=== PATIENT | female | born 1950 | race African-American/Black ===

== ENCOUNTER 2021-10-20 15:26 | Emergency (ER) | payer MEDICARE ==
[~2021-10-20] VITALS: Ht 157.5 cm; Wt 113.4 kg
[2021-10-20 16:28] LABS: BASOPHILS % (AUTO) 0.4 % (0.0-5.0); EOSINOPHILS % (AUTO) 1.1 % (0.0-8.0); HEMATOCRIT 29.5 % (36-48); LYMPHOCYTES % (AUTO) 12.5 % (21.0-51.0); MEAN CORPUSCULAR HEMOGLOBIN 26.3 pg (27.0-33.0); MEAN CORPUSCULAR HGB CONC 31.9 g/dL (32.0-36.0); MEAN CORPUSCULAR VOLUME 82.6 fL (79-99); MONOCYTES % (AUTO) 5.1 % (3.0-13.0); NEUTROPHILS % (AUTO) 80.6 % (40.0-77.0); PLATELET COUNT (AUTO) 309 K/uL (130-400); RED BLOOD CELL COUNT(AUTO) 3.57 MIL/uL (4.00-5.50); RED CELL DISTRIBUTION WIDTH 14.7 % (11.0-15.5); WHITE BLOOD COUNT (AUTO) 9.2 K/uL (4.8-10.8)
[2021-10-20 16:38] LABS: CREATININE 1.8 mg/dL (0.5-1.5); POTASSIUM 4.1 mmol/L (3.5-5.1)
[2021-10-20 16:43] LABS: ALBUMIN 2.8 g/dL (3.5-5.0); BILIRUBIN,TOTAL 0.3 mg/dL (0.2-1.0); TOTAL PROTEIN, SERUM 7.9 g/dL (6.0-8.3)
[2021-10-20] MEDS ORDERED: KETOROLAC 30MG VIAL (30MG/ML) ONE (17:12)
[2021-10-20] MEDS ORDERED: CLINDAMYCIN IVPB 600MG/50ML 50 ML IV STA (17:16)
[2021-10-20] MEDS ORDERED: CLIN-141 PO (17:29)
[2021-10-20] MEDS ORDERED: ACET-66 PO (17:29)
[2021-10-20] MEDS ORDERED: FERR220E7 PO (17:29)
[2021-10-20] MEDS ORDERED: DOCU-116 PO (17:29)
[2021-10-20] MEDS ORDERED: KETOROLAC 30MG VIAL (30MG/ML) IM ONE (17:30)
[2021-10-20] MEDS ORDERED: CLINDAMYCIN IVPB 600MG/50ML 50 ML IV ONE (17:32)
[2021-10-20 18:22] VITALS: BP 164/80
== END 2021-10-20 18:27 | disposition home or self-care (01) ==
LOC: EDH 15:26
DX: N75.0 Cyst of Bartholin's gland (principal); D64.9 Anemia, unspecified; E11.9 Type 2 diabetes mellitus without complications; E78.00 Pure hypercholesterolemia, unspecified; I10 Essential (primary) hypertension; Z88.0 Allergy status to penicillin; Z88.8 Allergy status to other drugs, medicaments and biological substances; Z79.1 Long term (current) use of non-steroidal anti-inflammatories (NSAID)
CPT/HCPCS: 36415; 80053; 85025; 96365; 96372; 99284; J1885; J3490

== ENCOUNTER 2022-12-28 09:50 | Emergency (ER) | payer MEDICARE ==
[~2022-12-28] VITALS: Ht 157.5 cm; Wt 107.0 kg
[~2022-12-28 09:50] MED LIST: ACET-66 PO; CLIN-141 PO; DOCU-116 PO; FERR220E7 PO
[2022-12-28] MEDS ORDERED: KETOROLAC 30MG VIAL (30MG/ML) IM ONE (10:30)
[2022-12-28 11:42] VITALS: BP 156/74
== END 2022-12-28 11:44 | disposition home or self-care (01) ==
LOC: EDH 09:50
DX: S83.8X2A Sprain of other specified parts of left knee, initial encounter (principal); M25.562 Pain in left knee; E11.9 Type 2 diabetes mellitus without complications; E78.00 Pure hypercholesterolemia, unspecified; I10 Essential (primary) hypertension; Z79.1 Long term (current) use of non-steroidal anti-inflammatories (NSAID); Z88.0 Allergy status to penicillin; Z88.8 Allergy status to other drugs, medicaments and biological substances; X58.XXXA Exposure to other specified factors, initial encounter; Y93.89 Activity, other specified; Y92.89 Other specified places as the place of occurrence of the external cause; Y99.8 Other external cause status
CPT/HCPCS: 99283; 29505; 73562; 96372; J1885

== ENCOUNTER 2025-02-26 11:32 | Inpatient (IN) | payer MEDICARE, OTHER ==
[~2025-02-26] VITALS: Ht 154.9 cm; Wt 113.4 kg
[~2025-02-26 11:32] MED LIST changes: +FERR220E10 PO; -FERR220E7 PO
--- NOTE | 2025-02-26 12:01 | EKG ---
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
--- NOTE | 2025-02-26 12:08 | NUR ---
PATIENT MADE AWARE OF URINE SPECIMEN FOR UA
[2025-02-26] MEDS: LACTATED RINGERS 1000ML 1,000 ML IV ONE (12:22)
[2025-02-26 12:29] LABS: BASOPHILS # (AUTO) 0.03 K/uL (0.00-0.20); BASOPHILS % (AUTO) 0.5 % (0.0-5.0); EOSINOPHILS # (AUTO) 0.01 K/uL (0.00-0.70); EOSINOPHILS % (AUTO) 0.2 % (0.0-8.0); HEMATOCRIT 31.4 % (36-48); IMMATURE GRANULOCYTE ABSOLUTE 0.03 K/uL (0-1); LYMPHOCYTES # (AUTO) 0.7 K/uL (1.0-4.8); MEAN CORPUSCULAR HEMOGLOBIN 25.4 pg (27.0-33.0); MEAN CORPUSCULAR HGB CONC 31.8 g/dL (32.0-36.0); MEAN CORPUSCULAR VOLUME 79.7 fL (79-99); MONOCYTES # (AUTO) 0.4 K/uL (0.1-1.0); MONOCYTES % (AUTO) 6.4 % (3.0-13.0); NEUTROPHILS # (AUTO) 5.2 K/uL (1.8-7.7); NEUTROPHILS % (AUTO) 81.4 % (40.0-77.0); PLATELET COUNT (AUTO) 169 K/uL (130-400); RED BLOOD CELL COUNT(AUTO) 3.94 MIL/uL (4.00-5.50); WHITE BLOOD COUNT (AUTO) 6.4 K/uL (4.8-10.8)
[2025-02-26 12:53] LABS: CREATININE 2.1 mg/dL (0.5-1.0); MAGNESIUM 1.5 mg/dL (1.80-2.40); POTASSIUM 3.7 mmol/L (3.5-5.1); THYROID STIMULATING HORMONE 1.98 uIU/mL (0.36-3.74)
--- NOTE | 2025-02-26 12:55 | HMCIMG ---
CHEST 1VW HISTORY: Chest pain COMPARISON: 07/17/2003 FINDINGS: A frontal projection of the chest was obtained. No acute pulmonary infiltrates is seen. The heart is normal in size. Prominent interstitial markings are seen. Aortic calcification are seen. Degenerative changes are seen. IMPRESSION: 1. No acute pulmonary infiltrate is seen.
[2025-02-26 12:56] LABS: B-TYPE NATRIURETIC PEPTIDE 69 pg/mL (0-100)
[2025-02-26 14:22] LABS: APPEARANCE,URINE CLOUDY (CLEAR); BILIRUBIN,URINE NEGATIVE (NEGATIVE); COLOR,URINE YELLOW (YELLOW); GLUCOSE, URINE (UA) 250 mg/dL (NEGATIVE); KETONES,URINE NEGATIVE (NEGATIVE); LEUKOCYTE ESTERASE ,URINE TRACE Leu/uL (NEGATIVE); NITRATE,URINE NEGATIVE (NEGATIVE); OCCULT BLOOD,URINE MODERATE (NEGATIVE); PROTEIN,URINE 100 mg/dL (NEGATIVE); UROBILINOGEN,URINE 0.2 mg/dL (0.2-1.0)
--- NOTE | 2025-02-26 14:23 | ERN ---
General Chief Complaint: Weakness Stated Complaint: GBW Time Seen by MD: 11:35 History of Present Illness Initial Comments 74-year-old female who presents for weakness. Patient comes from home, brought in by EMS with stable vital signs. Patient reports that she was in her normal state of health until today. When she awoke she felt extremely fatigued. She was unable to stand due to the weakness. She denies any fevers vomiting diarrhea dysuria or any systemic illness. She reports p.o. tolerance. She does report that about a week ago she had a cystoscopy in [place]. She has a history of bladder cancer, she was getting a routine cystoscopy and she reports that it was normal. Allergies: Coded Allergies: Penicillins (Unverified Allergy, Unknown, 10/20/21) heparin (Unverified Allergy, Unknown, 10/20/21) Home Meds Active Scripts Docusate Sodium (Colace) 100 Mg Capsule, 100 MG PO BID PRN for constipation for 10 Days, #20 CAP Prov:MARIAMA MASON MD 10/20/21 Ferrous Sulfate (Ferrous Sulfate) 220 Mg/5 Ml Elixir, 220 MG PO DAILY, #15 ML Prov:MARIAMA MASON MD 10/20/21 Acetaminophen (Tylenol) 500 Mg Tab, 500 MG PO Q6HPRN PRN for pain for 5 Days, #30 TAB Prov:MARIAMA MASON MD 10/20/21 Clindamycin HCl (Clindamycin HCl) 300 Mg Capsule, 300 MG PO Q4PRN for 7 Days, #28 CAP Prov:MARIAMA MASON MD 10/20/21 Past Medical History Past Medical History: Other Medical History Other: VERTIGO Past Surgical History: Other Surgical History Other: COLON SURGERY, BLADDER, Family History Family History: HTN Social History Social History: Lives with family ROS Dictation CONSTITUTIONAL: Weakness and fatigue HEAD/FACE: No signs of trauma. EENT: No eye pain, no blurred vision, no tearing, no double vision, no ear pain, no ear discharge, no nose pain, no nasal congestion, no throat pain, no throat swelling, no mouth pain. RESPIRATORY: No cough, no orthopnea, no SOB, no stridor, no wheezing. CARDIOVASCULAR: No chest pain, no edema, no palpitations, no syncope. GASTROINTESTINAL/ABDOMINAL: No abdominal pain, no constipation, no diarrhea, no nausea, no vomiting. GENITOURINARY: No abnormal discharge, no dysuria, no frequent urination, no hematuria. No complaints of pain in the genitals. MUSCULOSKELETAL: No back pain, no gout, no joint pain, no joint swelling, no muscle pain, no muscle stiffness, no neck pain. INTEGUMENTARY: No change in color, no change in hair/nails, no dryness, no lesion, no lumps, no rash. NEUROLOGICAL/PSYCH: No anxiety, not depressed, no emotional problem, no headache, no numbness, no pre-existing deficit, no history of seizures, no tremors, no weakness. HEMATOLOGIC/LYMPHATIC: Not anemic, no history of blood clots, no apparent bleeding, no bruising, glands not swollen. All Systems Negative, Except as Noted. Physical Exam Physical Exam Dictation VITAL SIGNS: Reviewed. GENERAL APPEARANCE: Alert, oriented x3, no acute distress EYES: PERRL, pink conjunctivas, eyelid no trauma, anterior chamber clear. EARS: Pinnas intact and no signs of trauma or erythema. Ear canals clear and no discharge. TMs no erythema. NOSE: No discharge, no bleeding. OROPHARYNX: Mouth normal, teeth no caries, tongue pink. Pharynx clear, no erythema. Tonsils no exudates, no abscesses noted. Mucous membrane moist. NECK: Supple, non-tender, no thyromegaly, no masses, no JVD, no bruits. BREAST: Deferred. CHEST: No tenderness, no crepitus, no paradoxical movement, no retractions. LUNGS: Clear, well-ventilated, symmetric, no rales, no wheezing, no rhonchi, no stridor, good breath sounds bilaterally. HEART: Regular rate, regular rhythm, no murmur, no gallops. VASCULAR: No peripheral edema. ABDOMEN: Soft, positive bowel sounds, nondistended, no guarding, nontender, no rebound, no masses no hepatomegaly, no splenomegaly, no Carrillo's sign, no hernias. RECTAL: Deferred. GENITAL: Deferred. NEUROLOGICAL: Normal speech, gross motor function intact, gross sensory function intact. MUSCULOSKELETAL: Neck nontender, full range of motion, back nontender, full range of motion. EXTREMITIES: Nontender, full range of motion. SKIN: Color pink, dry, no turgor, no rash, no lacerations, no abrasions, no contusions. LYMPHATICS: Deferred. Results Laboratory and Microbiology Lab and Micro Result Laboratory Tests Test 02/26/25 12:09 02/26/25 14:13 White Blood Count 6.4 K/uL (4.8-10.8) Red Blood Count 3.94 MIL/uL (4.00-5.50) L Hemoglobin 10.0 g/dL (12.0-16.0) L Hematocrit 31.4 % (36-48) L Mean Corpuscular Volume 79.7 fL (79-99) Mean Corpuscular Hemoglobin 25.4 pg (27.0-33.0) L Mean Corpuscular Hemoglobin Concent 31.8 g/dL (32.0-36.0) L Red Cell Distribution Width 15.0 % (11.0-15.5) Platelet Count 169 K/uL (130-400) Mean Platelet Volume 10.0 fL (7.5-10.5) Immature Granulocyte % (Auto) 0.5 % (0-1) Neutrophils (%) (Auto) 81.4 % (40.0-77.0) H Lymphocytes (%) (Auto) 11.0 % (21.0-51.0) L Monocytes (%) (Auto) 6.4 % (3.0-13.0) Eosinophils (%) (Auto) 0.2 % (0.0-8.0) Basophils (%) (Auto) 0.5 % (0.0-5.0) Neutrophils # (Auto) 5.2 K/uL (1.8-7.7) Lymphocytes # (Auto) 0.7 K/uL (1.0-4.8) L Monocytes # (Auto) 0.4 K/uL (0.1-1.0) Eosinophils # (Auto) 0.01 K/uL (0.00-0.70) Basophils # (Auto) 0.03 K/uL (0.00-0.20) Absolute Immature Granulocyte (auto 0.03 K/uL (0-1) Nucleated Red Blood Cells 0.0 % (0.0-0.19) Sodium Level 132 mmol/L (136-145) L Potassium Level 3.7 mmol/L (3.5-5.1) Chloride Level 100 mmol/L (101-111) L Carbon Dioxide Level 23 mmol/L (21-32) Blood Urea Nitrogen 20 mg/dL (7-18) H Creatinine 2.1 mg/dL (0.5-1.0) H Glomerular Filtration Rate Calc 25 mL/min (>90) Random Glucose 258 mg/dL (70-105) H Lactic Acid Level 1.5 mmol/L (0.8-2.5) Total Calcium 8.1 mg/dL (8.5-10.1) L Magnesium Level 1.50 mg/dL (1.80-2.40) L Total Creatine Kinase 121 U/L (21-232) # Troponin I High Sensitivity 25.4 ng/L (4-50) B-Type Natriuretic Peptide 69 pg/mL (0-100) Procalcitonin 3.19 ng/mL (0.05-0.5) H Thyroid Stimulating Hormone (TSH) 1.98 uIU/mL (0.36-3.74) Urine Color YELLOW (YELLOW) Urine Appearance CLOUDY (CLEAR) H Urine pH 6.0 (5.0-8.0) Urine Specific New Site 1.025 (1.001-1.031) Urine Protein 100 mg/dL (NEGATIVE) H Urine Glucose (UA) 250 mg/dL (NEGATIVE) H Urine Ketones NEGATIVE mg/dL (NEGATIVE) Urine Occult Blood MODERATE (NEGATIVE) H Urine Nitrate NEGATIVE (NEGATIVE) Urine Bilirubin NEGATIVE mg/dL (NEGATIVE) Urine Urobilinogen 0.2 mg/dL (0.2-1.0) Urine Leukocyte Esterase TRACE Micki/uL (NEGATIVE) H Urine RBC 2-5 /HPF (0-1) H Urine WBC 51-100 /HPF (0-1) H Urine WBC Clumps (Auto) RARE /HPF (0-1) Urine Squamous Epithelial Cells MOD /HPF (0-2) Urine Non-Squamous Epithelial Cells 1 /HPF (0-2) Urine Bacteria MOD /HPF (None Seen) Urine Hyaline Casts 6-10 /LPF (0-1 /LPF) H Urine Yeast RARE /HPF (None Seen) MDM CC: Generalized weak Historian: Patient Comorbidities: Liver cancer history of bladder cancer diabetes hypertension CKD limitations by social determinants of health: None EKG: Sinus rhythm rate 98 normal axis good R-wave progression intervals are stable no STEMI. Independently interpreted by me. Vital signs: Mild hypertension otherwise stable remained stable in the ER. Labs ( independently ordered and interpreted by me ): No leukocytosis, 81% neutrophils. Normocytic anemia hemoglobin of 10. Metabolic panel shows mild dehydration, creatinine of 2.1 baseline for patient. Hyperglycemia 258. Lactic acid stable. Magnesium 1.5. Troponin normal. BNP normal TSH normal. Procalcitonin is elevated at 3.1 Urinalysis positive for infection likely the cause of the patient's symptoms. Patient received IV fluids and IV Rocephin in the ER Plan: We will admit for UTI dehydration anemia and weakness Patient agrees Consultation: Hospitalist for admission. ED Course Orders Procedure Category Date Status Time Cardiac Panel LAB 02/26/25 Complete 11:35 Cbc With Differential LAB 02/26/25 Complete 11:35 Basic Metabolic Panel LAB 02/26/25 Complete 11:35 B-Type Natriuretic LAB 02/26/25 Complete Peptide 11:35 Magnesium LAB 02/26/25 Complete 11:35 Lactated Ringers PHA 02/26/25 Complete 1000ml (Lactated 12:00 12 Lead Ekg Tracing- EKG 02/26/25 Complete Technical 11:35 Urinalysis LAB 02/26/25 Complete W/Microscopic 11:35 Lactic Acid LAB 02/26/25 Complete 11:35 Blood Cult MANOJ 02/26/25 In Process 11:35 Procalcitonin LAB 02/26/25 Complete 11:35 Thyroid Stimulating LAB 02/26/25 Complete Hormone 11:35 Chest 1vw RAD 02/26/25 Resulted 11:42 Ceftriaxone 1g Vial PHA 02/26/25 Complete (Rocephine 1g Inj) 14:30 Ceftriaxone 1g Vial PHA 02/26/25 In Process (Rocephine 1g Inj) 15:00 Culture Urine MANOJ 02/26/25 Logged 14:40 Current Medications Medications (Trade) Dose Ordered Sig/Sonja Route PRN Reason Start Time Stop Time Status Last Admin Dose Admin Ceftriaxone Sodium (ROCEphine 1G INJ) 1 gm ONCE ONCE IVPB 02/26/25 15:00 02/26/25 15:01 Ceftriaxone Sodium (ROCEphine 1G INJ) 1 gm Q24H IVPB 02/26/25 14:30 02/26/25 14:38 DC Lactated Ringer's 1,000 ml @ 0 mls/hr ONCE ONCE IV 02/26/25 12:00 02/26/25 12:01 DC 02/26/25 12:22 Vital Signs Date Time Temp Pulse Resp B/P (MAP) Pulse Ox O2 Delivery O2 Flow Rate FiO2 02/26/25 12:15 98.8 95 20 158/66 97 Room Air* 0 21 02/26/25 11:35 99.3 99 20 154/72 98 Room Air 0 DX & DISP Disposition: Inpatient Departure Impression: Primary Impression: UTI (urinary tract infection) Additional Impressions: CKD (chronic kidney disease), Dehydration, Hyperglycemia, Anemia Condition: Stable Referrals: SELF,REFERRAL (PCP) ALISON KIDD DO Feb 26, 2025 14:23
[2025-02-26] MEDS ORDERED: cefTRIAXone 1G VIAL IVPB SCH (14:30)
[2025-02-26 14:39] LABS: BACTERIA,URINE MOD /HPF (None Seen); MUCUS,URINE FEW LPF (None Seen); NON-SQUAMOUS EPITHELIAL CELL 1 /HPF (0-2); SQUAMOUS EPITHELIAL CELL,UR MOD /HPF (0-2); WBC CLUMP RARE /HPF (0-1); WBC,URINE 51-100 /HPF (0-1); YEAST,URINE BUDDING RARE /HPF (None Seen)
[2025-02-26] MEDS: cefTRIAXone 1G VIAL IVPB ONE (15:12)
[2025-02-26 15:50] LABS: HEMOGLOBIN A1C 9.4 % (4.0-6.0)
--- NOTE | 2025-02-26 16:18 | HMCIMG ---
CT ABDOMEN/PELVIS W/O CONTRAST HISTORY: History of colon and bladder cancer COMPARISON: None TECHNIQUE: Multiple sequential axial images of the abdomen and pelvis were obtained from the dome of the diaphragm through symphysis pubis. Patient was not given contrast through intravenous route. Oral contrast was not given. Reconstruction images were not obtained. This is limiting evaluation. FINDINGS: No pleural effusion is seen bilaterally. There is no evidence of parenchymal disease or pulmonary nodule of the visualized lower lungs. Degenerative changes of the thoracolumbar spine are present. The heart is not enlarged. Postcholecystectomy changes are seen. A small hiatal hernia is seen. The study is limited due to lack of oral and IV contrast. The liver, spleen, adrenal glands and pancreas are unremarkable. 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 There may be minimal left hydronephrosis. No evidence of renal stone is seen. Fecal material is seen in the colon. There are normal size retroperitoneal and mesenteric lymph nodes. No ascites is seen. Atherosclerotic changes are present. Pelvic sidewalls are symmetric bilaterally. Deformity is seen of the right pubic ramus may be related to old trauma. Bladder is well distended without wall thickening. IMPRESSION: 1. The study is limited due to lack of oral and IV contrast. The study is limited due to the lack of two-dimensional reconstruction images. Small hiatal hernia is seen. No ascites is seen. Right kidney has been advanced and the minimal left hydronephrosis. CT was performed with one or more following dose reduction techniques: automated exposure control, adjustment of the mA and kv according to patient's size, or use of a iterative reconstruction technique.
[2025-02-26] MEDS: THIAMINE HCL 100 MG/ML 2ML VIAL IVP SCH (16:23)
[2025-02-26] MEDS: 0.9%NACL 1000ML 1,000 ML IV SCH (16:23)
[2025-02-26] MEDS: acetaMINOPHEN 325 MG TAB PO PRN (16:23)
[2025-02-26] MEDS: amLODIPine 5 MG TAB PO SCH (16:23)
[2025-02-26] MEDS: ondanSETRON 4MG INJ IVP PRN (16:25)
[2025-02-26] MEDS ORDERED: RENAL DOSE IV SCH (16:30)
[2025-02-26] MEDS ORDERED: levoFLOXacin 500 MG/D5W 100 ML 100 ML IV SCH (16:30)
--- NOTE | 2025-02-26 16:30 | NUR ---
INFECTIOUS DISEASE CONSULT COMPLETED BY DR HELM
[2025-02-26 16:40] LABS: ALBUMIN 2.4 g/dL (3.5-5.0); BILIRUBIN,DIRECT 0.1 mg/dL (0.0-0.3); BILIRUBIN,TOTAL 0.4 mg/dL (0.2-1.0); TOTAL PROTEIN, SERUM 7.3 g/dL (6.0-8.3)
[2025-02-26 16:51] LABS: SARS-CoV-2, RNA, NAAT NEGATIVE SARS CoV-2 (NEGATIVE)
[2025-02-26 16:59] LABS: INFLUENZA TYPE A Negative For Type A (NEGATIVE); INFLUENZA TYPE B Negative For Type B (NEGATIVE)
[2025-02-26] MEDS: MEROPENEM 500MG 500 MG VIAL IVPB SCH (17:00)
[2025-02-26] MEDS: MAGNESIUM 2GM PREMIX 50ML 50 ML IV SCH (17:01)
[2025-02-26] MEDS: INSULIN humuLIN R 100 UNIT/ML 3ML SQ SCH (17:08)
--- NOTE | 2025-02-26 19:24 | NUR ---
PT CARE ASSUMED AT THIS TIME
--- NOTE | 2025-02-26 21:49 | HP ---
[facility] HISTORY AND PHYSICAL Date of Service: Feb 26, 2025 Time of Service: 21:40 HISTORY OF PRESENT ILLNESS: Date of service: 02/26/2025, patient was seen in ER room 17 74-year-old female with underlying history of hypertension, hyperlipidemia, type 2 diabetes mellitus, obesity, history of bladder cancer followed at [facility], prior history of colon cancer who presented to the ER for further evaluation of generalized weakness, poor oral intake, malaise and asthenia. Symptoms have been ongoing for the past 3-4 days where patient reports having poor oral intake and myalgias. Patient reports that on 02/18/25, she had a routine surveillance cystoscopy done in [facility], and since then she has been feeling unwell. Patient denies any headache or focal weakness of upper or lower extremities. She has a history of bladder cancer several years ago for which she underwent chemotherapy as well as surgery. She also has a history of colon cancer where she underwent colon resection as well as she was told that small sport in her lungs, kidneys, liver which needed to be resected. Patient has a history of right renal nephrectomy. On presentation to the hospital, patient was noted to be afebrile with T-max of 99.3, tachycardic with heart rate in the 100s, blood pressure of 154/72. Labs on presentation showed WBC count of 6400, hemoglobin of 10, platelet count of 840262. BMP remarkable for sodium 132, potassium 3.7, BUN of 20, creatinine 2.1, magnesium 1.5, procalcitonin was elevated at 3.19 with AST of 79, ALT of 63, alkaline phosphatase of 187. Urinalysis showed cloudy urine with pyuria, bacteriuria. Patient will be admitted for further management of urinary tract infection and dehydration. Patient does have underlying history of penicillin allergy with renal failure. Patient will be started on broad-spectrum antibiotics with IV Merrem and consultation with Infectious Disease will be requested. We will see how patient progresses closely. REVIEW OF SYSTEMS CONSTITUTIONAL: Fevers, chills, asthenia malaise NEUROLOGICAL: Denies headache, amaurosis fugax, motor weakness, sensory deficit, vertigo/spinning sensation, gait abnormalities, or tremors. ENT: No hearing loss, otalgia, otorrhea, rhinitis, rhinorrhea, hoarseness, or sore throat. CARDIOVASCULAR: Denies any exertional angina, dyspnea on exertion, orthopnea, paroxysmal nocturnal dyspnea, palpitations, life-threatening arrhythmias, claudication. PULMONARY: Denies any shortness of breath, cough, phlegm/sputum, hemoptysis, pleuritic chest pain. SLEEP: Denies morning headaches, daytime somnolence or napping. Denies difficulty falling asleep, staying asleep, waking from sleep. Denies knowledge of snoring. GASTROINTESTINAL: Poor oral intake with nausea GENITOURINARY: Denies frequency, urgency, nocturia, hematuria or incontinence (Storage/Irritative symptoms.) Low urinary stream, straining to void, urinary intermittency or hesitancy, splitting of the voiding stream, terminal dribbling. ENDOCRINOLOGIC: Denies polyuria, polydipsia, polyphagia or heat/cold intolerances. HEMATOLOGIC: Denies thrombophilia/previous clots, or coagulopathy/bleeding disorders. ONCOLOGIC: Denies personal history of malignancy. DERMATOLOGIC: Denies rashes or pruritus. PSYCHIATRIC: Denies any suicidal or homicidal ideation. Denies hallucinations. PAST MEDICAL HISTORY: Hypertension, hyperlipidemia, type 2 diabetes mellitus, history of bladder cancer, prior history of colon cancer about 20 years ago PAST SURGICAL HISTORY: Right renal nephrectomy, history of tumor removal involving lungs, liver and patient also reports having colon resection for colon cancer 20 years ago in [facility] PAST SOCIAL HISTORY: Denies active smoking or alcohol consumption, lives with son at home, uses a walker to ambulate FAMILY HISTORY: Denies pertinent family history Allergies: Penicillin which causes significant rash, heparin causes thrombocytopenia Coded Allergies: Penicillins (Unverified Allergy, Unknown, 10/20/21) heparin (Unverified Allergy, Unknown, 10/20/21) PHYSICAL EXAM GENERAL APPEARANCE: The patient is awake, alert, and oriented, in no acute cardiopulmonary distress. Appears frail and debilitated NEUROLOGICAL: Cranial nerves II-XII grossly intact. Motor is 5/5 in bilateral upper and lower extremities proximal to distal. No sensory deficits. HEENT: Face is symmetric. Pupils are equal and reactive. Extraocular movements are intact. NECK: Supple. No JVD. No thyromegaly. No submental, submandibular, pre-/postau ricular, occipital or supraclavicular lymphadenopathy. CHEST: Normal chest expansion. No Telemetry. LUNGS: Absence of any rales, rhonchi or any wheezing. CARDIOVASCULAR: Regular. S1 and S2 normal. No appreciable rubs, murmurs or gallops. ABDOMEN: Soft, nontender, and nondistended. There is no rebound, voluntary guarding, or rigidity. : Deferred. No [place]. EXTREMITIES: Non-edematous and not cyanotic. No clubbing. Good capillary refill. SKIN: No skin breakdown. Vital Sign (Last 24 Hours) 02/26/25 19:35 Temp 98.2 Pulse 99 Resp 20 B/P (MAP) 149/71 Pulse Ox 99 O2 Delivery Room Air* O2 Flow Rate 0 FiO2 21 LABS: Laboratory: Test 02/26/25 21:15 02/26/25 16:23 02/26/25 14:13 02/26/25 12:09 Range/Units Whole Blood Glucose 166 H 70-110 MG/DL Influenza Type A Antigen Negative For Type A NEGATIVE Influenza Type B Antigen Negative For Type B NEGATIVE SARS-CoV-2, RNA, NAAT NEGATIVE SARS CoV-2 NEGATIVE Urine Color YELLOW YELLOW Urine Appearance CLOUDY H CLEAR Urine pH 6.0 5.0-8.0 Urine Specific [place] 1.025 1.001-1.031 Urine Protein 100 H NEGATIVE mg/dL Urine Glucose (UA) 250 H NEGATIVE mg/dL Urine Ketones NEGATIVE NEGATIVE mg/dL Urine Occult Blood MODERATE H NEGATIVE Urine Nitrate NEGATIVE NEGATIVE Urine Bilirubin NEGATIVE NEGATIVE mg/dL Urine Urobilinogen 0.2 0.2-1.0 mg/dL Urine Leukocyte Esterase TRACE H NEGATIVE Micki/uL Urine RBC 2-5 H 0-1 /HPF Urine WBC 51-100 H 0-1 /HPF Urine WBC Clumps (Auto) RARE 0-1 /HPF Urine Squamous Epithelial Cells MOD 0-2 /HPF Urine Non-Squamous Epithelial Cells 1 0-2 /HPF Urine Bacteria MOD None Seen /HPF Urine Hyaline Casts 6-10 H 0-1 /LPF /LPF Urine Yeast RARE None Seen /HPF White Blood Count 6.4 4.8-10.8 K/uL Red Blood Count 3.94 L 4.00-5.50 MIL/uL Hemoglobin 10.0 L 12.0-16.0 g/dL Hematocrit 31.4 L 36-48 % Mean Corpuscular Volume 79.7 79-99 fL Mean Corpuscular Hemoglobin 25.4 L 27.0-33.0 pg Mean Corpuscular Hemoglobin Concent 31.8 L 32.0-36.0 g/dL Red Cell Distribution Width 15.0 11.0-15.5 % Platelet Count 169 130-400 K/uL Mean Platelet Volume 10.0 7.5-10.5 fL Immature Granulocyte % (Auto) 0.5 0-1 % Neutrophils (%) (Auto) 81.4 H 40.0-77.0 % Lymphocytes (%) (Auto) 11.0 L 21.0-51.0 % Monocytes (%) (Auto) 6.4 3.0-13.0 % Eosinophils (%) (Auto) 0.2 0.0-8.0 % Basophils (%) (Auto) 0.5 0.0-5.0 % Neutrophils # (Auto) 5.2 1.8-7.7 K/uL Lymphocytes # (Auto) 0.7 L 1.0-4.8 K/uL Monocytes # (Auto) 0.4 0.1-1.0 K/uL Eosinophils # (Auto) 0.01 0.00-0.70 K/uL Basophils # (Auto) 0.03 0.00-0.20 K/uL Absolute Immature Granulocyte (auto 0.03 0-1 K/uL Nucleated Red Blood Cells 0.0 0.0-0.19 % Sodium Level 132 L 136-145 mmol/L Potassium Level 3.7 3.5-5.1 mmol/L Chloride Level 100 L 101-111 mmol/L Carbon Dioxide Level 23 21-32 mmol/L Blood Urea Nitrogen 20 H 7-18 mg/dL Creatinine 2.1 H 0.5-1.0 mg/dL Glomerular Filtration Rate Calc 25 >90 mL/min Random Glucose 258 H 70-105 mg/dL Hemoglobin A1c 9.4 H 4.0-6.0 % Estimated Average Glucose (eAG) 223 H 70-126 mg/dL Lactic Acid Level 1.5 0.8-2.5 mmol/L Total Calcium 8.1 L 8.5-10.1 mg/dL Magnesium Level 1.50 L 1.80-2.40 mg/dL Total Bilirubin 0.4 0.2-1.0 mg/dL Direct Bilirubin 0.1 0.0-0.3 mg/dL Aspartate Amino Transf (AST/SGOT) 79 H 10-37 U/L Alanine Aminotransferase (ALT/SGPT) 63 12-78 U/L Alkaline Phosphatase 187 H 50-136 U/L Total Creatine Kinase 121 # 21-232 U/L Troponin I High Sensitivity 25.4 4-50 ng/L C-Reactive Protein, Quantitative 57.10 H 0.5-3.0 mg/L B-Type Natriuretic Peptide 69 0-100 pg/mL Total Protein 7.3 6.0-8.3 g/dL Albumin 2.4 L 3.5-5.0 g/dL Procalcitonin 3.19 H 0.05-0.5 ng/mL Thyroid Stimulating Hormone (TSH) 1.98 0.36-3.74 uIU/mL Current Medications Medications (Trade) Dose Ordered Sig/Sonja Route PRN Reason Start Time Stop Time Status Last Admin Dose Admin Acetaminophen (TYLenol 325MG TAB) 650 mg Q6H PRN PO MILD PAIN (1-3) 02/26/25 16:30 03/28/25 16:29 02/26/25 16:23 650 MG Amlodipine Besylate (NorvASC 5MG TAB) 5 mg Q12H PO 02/26/25 15:30 03/28/25 15:29 02/26/25 16:23 5 MG Ceftriaxone Sodium (ROCEphine 1G INJ) 1 gm Q24H IVPB 02/26/25 14:30 02/26/25 14:38 DC Insulin Human Regular (humuLIN R 100 UNIT/ML 3ML) INSULIN SLIDING SCAL... ACHS SQ 02/26/25 16:30 03/28/25 16:29 02/26/25 17:08 4 UNIT Labetalol HCl (TRANdate 20MG SYG) 10 mg Q6H PRN IV SBP> 170 02/26/25 15:30 03/28/25 15:29 Levofloxacin/ Dextrose 100 ml @ 100 mls/hr Q48H IV 02/26/25 16:30 02/26/25 16:08 DC Magnesium Sulfate 50 ml @ 0 mls/hr PROTOCOL IV 02/26/25 15:30 03/28/25 15:29 02/26/25 17:01 25 MLS/HR Meropenem (Merrem 500mg) 500 mg Q12H IVPB 02/26/25 16:30 03/08/25 16:29 02/26/25 17:00 500 MG Ondansetron HCl (zoFRAN 4MG INJ) 4 mg Q6H PRN IVP NAUSEA/VOMITING 02/26/25 16:30 03/28/25 16:29 02/26/25 16:25 4 MG Sodium Chloride 1,000 ml @ 100 mls/hr Q10H IV 02/26/25 15:30 03/28/25 15:29 02/26/25 16:23 100 MLS/HR Thiamine HCl (Vitamin B-1) 100 mg Q24H IVP 02/26/25 15:30 03/28/25 15:29 02/26/25 16:23 100 MG DIAGNOSTICS / RADIOLOGY: SERVICE 1519 REASON: hx of colon and bladder cancer, uti, recent cystoscopy, hx of neprhectomy ORDERING PHYSICIAN: COREY TAMAYO MD PROCEDURE: ABD PEL WO - CT ABDOMEN/PELVIS W/O CONTRAST CT ABDOMEN/PELVIS W/O CONTRAST HISTORY: History of colon and bladder cancer COMPARISON: None TECHNIQUE: Multiple sequential axial images of the abdomen and pelvis were obtained from the dome of the diaphragm through symphysis pubis. Patient was not given contrast through intravenous route. Oral contrast was not given. Reconstruction images were not obtained. This is limiting evaluation. FINDINGS: No pleural effusion is seen bilaterally. There is no evidence of parenchymal disease or pulmonary nodule of the visualized lower lungs. Degenerative changes of the thoracolumbar spine are present. The heart is not enlarged. Postcholecystectomy changes are seen. A small hiatal hernia is seen. The study is limited due to lack of oral and IV contrast. The liver, spleen, adrenal glands and pancreas are unremarkable. 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 There may be minimal left hydronephrosis. No evidence of renal stone is seen. Fecal material is seen in the colon. There are normal size retroperitoneal and mesenteric lymph nodes. No ascites is seen. Atherosclerotic changes are present. Pelvic sidewalls are symmetric bilaterally. Deformity is seen of the right pubic ramus may be related to old trauma. Bladder is well distended without wall thickening. IMPRESSION: 1. The study is limited due to lack of oral and IV contrast. The study is limited due to the lack of two-dimensional reconstruction images. Small hiatal hernia is seen. No ascites is seen. Right kidney has been advanced and the minimal left hydronephrosis. CT was performed with one or more following dose reduction techniques: automated exposure control, adjustment of the mA and kv according to patient's size, or use of a iterative reconstruction technique. ASSESSMENT: Complicated urinary tract infection, POA CELIA on CKD, POA History of right renal nephrectomy, POA Dehydration, POA Normocytic anemia, POA History of bladder cancer, POA Prior history of colon cancer about 20 years ago status post colon resection, POA Hypomagnesemia, POA Hypovolemic hyponatremia, POA Underlying history of hypertension, POA Hyperlipidemia, POA Type 2 diabetes mellitus, POA Obesity, POA History of allergy to penicillin and heparin, POA PLAN: Patient will be admitted to medical-surgical floor under telemetry monitoring We will start broad-spectrum antibiotics with IV meropenem, renally dosed, deescalate antibiotics in the next 24-48 hours based on culture sensitivity We will start IV hydration with NS at 100 cc an hour, monitor renal function closely especially in the setting of right renal nephrectomy We will follow up results of CT abdomen pelvis without contrast We will request consultation with Infectious Disease and Nephrology Patient will be resumed in her home dose of amlodipine 5 mg b.i.d. for management of hypertension We will follow up blood cultures and urine culture We will request consultation with Physical therapy for patient mobilization Anticipate hospitalization for at least 48-72 hours, we will follow up patient closely All labs will be repeated in the morning Medications were renally dose, avoid any NSAIDs, avoid any nephrotoxic medications Prognosis: Guarded Date of service: 02/27/2024 Plan of care was discussed with patient at bedside, Corey Tamayo MD Advanced Care Planning: Which of the following were discussed: Hospice care: Yes __ No _X_ Therapeutic options: Yes _X_ No __ Advance directives: Yes _X_ No __ Other discussions: Discussed with who?: Patient Voluntary nature of this service was explained to the patient? Yes _x_ No __ Amount of time spent: 20 minutes COREY TAMAYO MD Feb 26, 2025 21:49
--- NOTE | 2025-02-26 23:40 | NUR ---
REPORT GIVEN TO ENMANUEL MICHELE AT THIS TIME
[2025-02-26 23:55] VITALS: BP 152/78; PULSE 107; RESP 20; TEMP 98.2; O2SAT 97
[2025-02-27] VITALS (7 sets, daily range): BP systolic 108–155; BP diastolic 69–80; PULSE 101–114; RESP 16–22; TEMP 98.3–100.8; O2SAT 96–99
[2025-02-27 05:54] LABS: BASOPHILS # (AUTO) 0.04 K/uL (0.00-0.20); BASOPHILS % (AUTO) 0.6 % (0.0-5.0); EOSINOPHILS # (AUTO) 0.02 K/uL (0.00-0.70); EOSINOPHILS % (AUTO) 0.3 % (0.0-8.0); IMMATURE GRANULOCYTE ABSOLUTE 0.04 K/uL (0-1); LYMPHOCYTES # (AUTO) 0.6 K/uL (1.0-4.8); LYMPHOCYTES % (AUTO) 9.9 % (21.0-51.0); MEAN CORPUSCULAR HEMOGLOBIN 25.3 pg (27.0-33.0); MEAN CORPUSCULAR VOLUME 78.9 fL (79-99); MONOCYTES # (AUTO) 0.5 K/uL (0.1-1.0); MONOCYTES % (AUTO) 7.7 % (3.0-13.0); NEUTROPHILS # (AUTO) 5.1 K/uL (1.8-7.7); NEUTROPHILS % (AUTO) 80.9 % (40.0-77.0); PLATELET COUNT (AUTO) 144 K/uL (130-400); RED CELL DISTRIBUTION WIDTH 15.1 % (11.0-15.5); WHITE BLOOD COUNT (AUTO) 6.3 K/uL (4.8-10.8)
[2025-02-27 06:08] LABS: ALBUMIN 2.1 g/dL (3.5-5.0); BILIRUBIN,TOTAL 0.4 mg/dL (0.2-1.0); CREATININE 1.8 mg/dL (0.5-1.0); MAGNESIUM 1.8 mg/dL (1.80-2.40); POTASSIUM 3.8 mmol/L (3.5-5.1); TOTAL PROTEIN, SERUM 6.8 g/dL (6.0-8.3)
[2025-02-27] MEDS ORDERED: ATORVASTATIN PO (06:56)
[2025-02-27] MEDS ORDERED: VENL-63 PO (06:56)
[2025-02-27] MEDS ORDERED: SENN8.6T20 PO (06:56)
[2025-02-27] MEDS ORDERED: AMLO-258 PO (06:56)
[2025-02-27] MEDS ORDERED: GABA-1405 PO (06:56)
[2025-02-27] MEDS ORDERED: GLIP5TAB15 PO (06:56)
--- NOTE | 2025-02-27 10:02 | PN ---
[facility] PROGRESS NOTE Date of Service: Feb 27, 2025 Time of Service: 10:02 SUBJECTIVE: [ ] Date of service: 02/26/2025, patient was seen in ER room 17 74-year-old female with underlying history of hypertension, hyperlipidemia, type 2 diabetes mellitus, obesity, history of bladder cancer followed at [facility], prior history of colon cancer who presented to the ER for further evaluation of generalized weakness, poor oral intake, malaise and asthenia. Symptoms have been ongoing for the past 3-4 days where patient reports having poor oral intake and myalgias. Patient reports that on 02/18/25, she had a routine surveillance cystoscopy done in [facility], and since then she has been feeling unwell. Patient denies any headache or focal weakness of upper or lower extremities. She has a history of bladder cancer several years ago for which she underwent chemotherapy as well as surgery. 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 Patient has a history of right renal nephrectomy. On presentation to the hospital, patient was noted to be afebrile with T-max of 99.3, tachycardic with heart rate in the 100s, blood pressure of 154/72. Labs on presentation showed WBC count of 6400, hemoglobin of 10, platelet count of 792248. BMP remarkable for sodium 132, potassium 3.7, BUN of 20, creatinine 2.1, magnesium 1.5, procalcitonin was elevated at 3.19 with AST of 79, ALT of 63, alkaline phosphatase of 187. Urinalysis showed cloudy urine with pyuria, bacteriuria. Patient will be admitted for further management of urinary tract infection and dehydration. Patient does have underlying history of penicillin allergy with renal failure. Patient will be started on broad-spectrum antibiotics with IV Merrem venom and consultation with Infectious Disease will be requested. We will see how patient progresses closely. February 27, 2025 74-year-old female remains admitted for generalized weakness and poor oral intake, initially presenting on February 26, 2025. Patient reports slight improvement in energy today but still feels overall weak and unable to ambulate independently. She has been able to take oral fluids and a light meal, which she tolerated well. She continues to complain of significant lower back pain (rated 7/10), described as dull, aching, non-radiating, worsened with movement. Denies saddle anesthesia, bowel or bladder incontinence. No current fever, chills, chest pain, palpitations, nausea, or vomiting. Denies any new neurological symptoms. Patient is aware that urine analysis and preliminary culture was positive and is currently receiving IV meropenem. She is agreeable to physical therapy assessment. No new urinary complaints. Mild improvement in mental clarity and fatigue. REVIEW OF SYSTEMS CONSTITUTIONAL: Fevers, chills, asthenia malaise NEUROLOGICAL: Denies headache, amaurosis fugax, motor weakness, sensory deficit, vertigo/spinning sensation, gait abnormalities, or tremors. ENT: No hearing loss, otalgia, otorrhea, rhinitis, rhinorrhea, hoarseness, or sore throat. CARDIOVASCULAR: Denies any exertional angina, dyspnea on exertion, orthopnea, paroxysmal nocturnal dyspnea, palpitations, life-threatening arrhythmias, claudication. PULMONARY: Denies any shortness of breath, cough, phlegm/sputum, hemoptysis, pleuritic chest pain. SLEEP: Denies morning headaches, daytime somnolence or napping. Denies difficulty falling asleep, staying asleep, waking from sleep. Denies knowledge of snoring. GASTROINTESTINAL: Poor oral intake with nausea GENITOURINARY: Denies frequency, urgency, nocturia, hematuria or incontinence (Storage/Irritative symptoms.) Low urinary stream, straining to void, urinary intermittency or hesitancy, splitting of the voiding stream, terminal dribbling. ENDOCRINOLOGIC: Denies polyuria, polydipsia, polyphagia or heat/cold intolerances. HEMATOLOGIC: Denies thrombophilia/previous clots, or coagulopathy/bleeding disorders. ONCOLOGIC: Denies personal history of malignancy. DERMATOLOGIC: Denies rashes or pruritus. PSYCHIATRIC: Denies any suicidal or homicidal ideation. Denies hallucinations. PHYSICAL EXAM GENERAL APPEARANCE: The patient is awake, alert, and oriented, in no acute cardiopulmonary distress. Appears frail and debilitated NEUROLOGICAL: Cranial nerves II-XII grossly intact. Motor is 5/5 in bilateral upper and lower extremities proximal to distal. No sensory deficits. HEENT: Face is symmetric. Pupils are equal and reactive. Extraocular movements are intact. NECK: Supple. No JVD. No thyromegaly. No submental, submandibular, pre- /postauricular, occipital or supraclavicular lymphadenopathy. CHEST: Normal chest expansion. No Telemetry. LUNGS: Absence of any rales, rhonchi or any wheezing. CARDIOVASCULAR: Regular. S1 and S2 normal. No appreciable rubs, murmurs or gallops. ABDOMEN: Soft, nontender, and nondistended. There is no rebound, voluntary guarding, or rigidity. : Deferred. No Kent. EXTREMITIES: Non-edematous and not cyanotic. No clubbing. Good capillary refill. SKIN: No skin breakdown. Vital Signs (last 8hr) Date Time Temp Pulse Resp B/P (MAP) Pulse Ox O2 Delivery O2 Flow Rate FiO2 02/27/25 08:34 99 Room Air* 0 21 02/27/25 07:48 100.8 109 22 126/69 99 Room Air 21 02/27/25 04:00 98.6 101 20 153/71 97 Room Air LABS: Laboratory: Test 02/27/25 05:49 02/27/25 05:21 02/26/25 16:23 02/26/25 14:13 Range/Units Whole Blood Glucose 153 H 70-110 MG/DL White Blood Count 6.3 4.8-10.8 K/uL Red Blood Count 3.80 L 4.00-5.50 MIL/uL Hemoglobin 9.6 L 12.0-16.0 g/dL Hematocrit 30.0 L 36-48 % Mean Corpuscular Volume 78.9 L 79-99 fL Mean Corpuscular Hemoglobin 25.3 L 27.0-33.0 pg Mean Corpuscular Hemoglobin Concent 32.0 32.0-36.0 g/dL Red Cell Distribution Width 15.1 11.0-15.5 % Platelet Count 144 130-400 K/uL Mean Platelet Volume 11.2 H 7.5-10.5 fL Immature Granulocyte % (Auto) 0.6 0-1 % Neutrophils (%) (Auto) 80.9 H 40.0-77.0 % Lymphocytes (%) (Auto) 9.9 L 21.0-51.0 % Monocytes (%) (Auto) 7.7 3.0-13.0 % Eosinophils (%) (Auto) 0.3 0.0-8.0 % Basophils (%) (Auto) 0.6 0.0-5.0 % Neutrophils # (Auto) 5.1 1.8-7.7 K/uL Lymphocytes # (Auto) 0.6 L 1.0-4.8 K/uL Monocytes # (Auto) 0.5 0.1-1.0 K/uL Eosinophils # (Auto) 0.02 0.00-0.70 K/uL Basophils # (Auto) 0.04 0.00-0.20 K/uL Absolute Immature Granulocyte (auto 0.04 0-1 K/uL Nucleated Red Blood Cells 0.0 0.0-0.19 % White Cell Morphology Comment See comments Sodium Level 134 L 136-145 mmol/L Potassium Level 3.8 3.5-5.1 mmol/L Chloride Level 103 101-111 mmol/L Carbon Dioxide Level 24 21-32 mmol/L Blood Urea Nitrogen 17 7-18 mg/dL Creatinine 1.8 H 0.5-1.0 mg/dL Glomerular Filtration Rate Calc 30 >90 mL/min Random Glucose 150 H 70-105 mg/dL Total Calcium 7.9 L 8.5-10.1 mg/dL Magnesium Level 1.80 1.80-2.40 mg/dL Total Bilirubin 0.4 0.2-1.0 mg/dL Aspartate Amino Transf (AST/SGOT) 83 H 10-37 U/L Alanine Aminotransferase (ALT/SGPT) 52 12-78 U/L Alkaline Phosphatase 186 H 50-136 U/L Total Protein 6.8 6.0-8.3 g/dL Albumin 2.1 L 3.5-5.0 g/dL Influenza Type A Antigen Negative For Type A NEGATIVE Influenza Type B Antigen Negative For Type B NEGATIVE SARS-CoV-2, RNA, NAAT NEGATIVE SARS CoV-2 NEGATIVE Urine Color YELLOW YELLOW Urine Appearance CLOUDY H CLEAR Urine pH 6.0 5.0-8.0 Urine Specific Cochran 1.025 1.001-1.031 Urine Protein 100 H NEGATIVE mg/dL Urine Glucose (UA) 250 H NEGATIVE mg/dL Urine Ketones NEGATIVE NEGATIVE mg/dL Urine Occult Blood MODERATE H NEGATIVE Urine Nitrate NEGATIVE NEGATIVE Urine Bilirubin NEGATIVE NEGATIVE mg/dL Urine Urobilinogen 0.2 0.2-1.0 mg/dL Urine Leukocyte Esterase TRACE H NEGATIVE Micki/uL Urine RBC 2-5 H 0-1 /HPF Urine WBC 51-100 H 0-1 /HPF Urine WBC Clumps (Auto) RARE 0-1 /HPF Urine Squamous Epithelial Cells MOD 0-2 /HPF Urine Non-Squamous Epithelial Cells 1 0-2 /HPF Urine Bacteria MOD None Seen /HPF Urine Hyaline Casts 6-10 H 0-1 /LPF /LPF Urine Yeast RARE None Seen /HPF Test 02/26/25 12:09 Range/Units Hemoglobin A1c 9.4 H 4.0-6.0 % Estimated Average Glucose (eAG) 223 H 70-126 mg/dL Lactic Acid Level 1.5 0.8-2.5 mmol/L Direct Bilirubin 0.1 0.0-0.3 mg/dL Total Creatine Kinase 121 # 21-232 U/L Troponin I High Sensitivity 25.4 4-50 ng/L C-Reactive Protein, Quantitative 57.10 H 0.5-3.0 mg/L B-Type Natriuretic Peptide 69 0-100 pg/mL Procalcitonin 3.19 H 0.05-0.5 ng/mL Thyroid Stimulating Hormone (TSH) 1.98 0.36-3.74 uIU/mL Current Medications Medications (Trade) Dose Ordered Sig/Sonja Route PRN Reason Start Time Stop Time Status Last Admin Dose Admin Acetaminophen (TYLenol 325MG TAB) 650 mg Q6H PRN PO MILD PAIN (1-3) 02/26/25 16:30 03/28/25 16:29 02/26/25 22:08 650 MG Amlodipine Besylate (NorvASC 5MG TAB) 5 mg Q12H PO 02/26/25 15:30 03/28/25 15:29 02/27/25 04:05 5 MG Ceftriaxone Sodium (ROCEphine 1G INJ) 1 gm Q24H IVPB 02/26/25 14:30 02/26/25 14:38 DC Insulin Human Regular (humuLIN R 100 UNIT/ML 3ML) INSULIN SLIDING SCAL... ACHS SQ 02/26/25 16:30 03/28/25 16:29 02/26/25 17:08 4 UNIT Labetalol HCl (TRANdate 20MG SYG) 10 mg Q6H PRN IV SBP> 170 02/26/25 15:30 03/28/25 15:29 Levofloxacin/ Dextrose 100 ml @ 100 mls/hr Q48H IV 02/26/25 16:30 02/26/25 16:08 DC Magnesium Sulfate 50 ml @ 0 mls/hr PROTOCOL IV 02/26/25 15:30 03/28/25 15:29 02/26/25 17:01 25 MLS/HR Meropenem (Merrem 500mg) 500 mg Q12H IVPB 02/26/25 16:30 03/08/25 16:29 02/27/25 04:05 500 MG Ondansetron HCl (zoFRAN 4MG INJ) 4 mg Q6H PRN IVP NAUSEA/VOMITING 02/26/25 16:30 03/28/25 16:29 02/27/25 09:55 4 MG Sodium Chloride 1,000 ml @ 100 mls/hr Q10H IV 02/26/25 15:30 03/28/25 15:29 02/27/25 09:19 100 MLS/HR Thiamine HCl (Vitamin B-1) 100 mg Q24H IVP 02/26/25 15:30 03/28/25 15:29 02/26/25 16:23 100 MG DIAGNOSTICS / RADIOLOGY: PATIENT: DANIEL SOLIMAN MR#: [id number] : 1950 SEX: F AGE: 74 LOCATION: [facility] ORDER 1142 STATUS: REG ER REPORT#: [id number] SERVICE 1142 REASON: chest pain ORDERING PHYSICIAN: ALISON KIDD DO PROCEDURE: CXR1VW - CHEST 1VW CHEST 1VW HISTORY: Chest pain COMPARISON: 07/17/2003 FINDINGS: A frontal projection of the chest was obtained. No acute pulmonary infiltrates is seen. The heart is normal in size. Prominent interstitial markings are seen. Aortic calcification are seen. Degenerative changes are seen. IMPRESSION: 1. No acute pulmonary infiltrate is seen. DICTATED BY: DAVID RODRIGUEZ MD DATE: 02/26/251251 ELECTRONICALLY SIGNED BY: DAVID RODRIGUEZ MD DATE: 02/26/25 1255 [ PATIENT: DANIEL SOLIMAN MR#: [id number] : 1950 SEX: F AGE: 74 LOCATION: [facility] ORDER 1522 STATUS: ADM IN REPORT#: [id number] SERVICE 1519 REASON: hx of colon and bladder cancer, uti, recent cystoscopy, hx of neprhectomy ORDERING PHYSICIAN: JEB HELM MD PROCEDURE: ABD PEL WO - CT ABDOMEN/PELVIS W/O CONTRAST CT ABDOMEN/PELVIS W/O CONTRAST HISTORY: History of colon and bladder cancer COMPARISON: None TECHNIQUE: Multiple sequential axial images of the abdomen and pelvis were obtained from the dome of the diaphragm through symphysis pubis. Patient was not given contrast through intravenous route. Oral contrast was not given. Reconstruction images were not obtained. This is limiting evaluation. FINDINGS: No pleural effusion is seen bilaterally. There is no evidence of parenchymal disease or pulmonary nodule of the visualized lower lungs. Degenerative changes of the thoracolumbar spine are present. The heart is not enlarged. Postcholecystectomy changes are seen. A small hiatal hernia is seen. The study is limited due to lack of oral and IV contrast. The liver, spleen, adrenal glands and pancreas are unremarkable. 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 There may be minimal left hydronephrosis. No evidence of renal stone is seen. Fecal material is seen in the colon. There are normal size retroperitoneal and mesenteric lymph nodes. No ascites is seen. Atherosclerotic changes are present. Pelvic sidewalls are symmetric bilaterally. Deformity is seen of the right pubic ramus may be related to old trauma. Bladder is well distended without wall thickening. IMPRESSION: 1. The study is limited due to lack of oral and IV contrast. The study is limited due to the lack of two-dimensional reconstruction images. Small hiatal hernia is seen. No ascites is seen. Right kidney has been advanced and the minimal left hydronephrosis. CT was performed with one or more following dose reduction techniques: automated exposure control, adjustment of the mA and kv according to patient's size, or use of a iterative reconstruction technique. DICTATED BY: DAVID RODRIGUEZ MD DATE: 02/26/251611 ELECTRONICALLY SIGNED BY: DAVID RODRIGUEZ MD DATE: 02/26/25 1618 ] ASSESSMENT: Complicated urinary tract infection, POA CELIA on CKD, POA History of right renal nephrectomy, POA Dehydration, POA Normocytic anemia, POA History of bladder cancer, POA Prior history of colon cancer about 20 years ago status post colon resection, POA Hypomagnesemia, POA Hypovolemic hyponatremia, POA Underlying history of hypertension, POA Hyperlipidemia, POA Type 2 diabetes mellitus, POA Obesity, POA History of allergy to penicillin and heparin, POA PLAN: Patient will be admitted to medical-surgical floor under telemetry monitoring We will request consultation with Infectious Disease and Nephrology We will request consultation with Physical therapy for patient mobilization Anticipate hospitalization for at least 48-72 hours, we will follow up patient closely All labs will be repeated in the morning Medications were renally dose, avoid any NSAIDs, avoid any nephrotoxic medications Complicated UTI (POA): * Likely catheter-associated UTI; urine culture pending sensitivities * Started on Meropenem 500 mg IV Q12H, renal-dosed * Await ID and nephrology input on narrowing therapy once culture finalized * Continue Kent care, monitor urine output 2. Acute Kidney Injury on CKD (Stage 3b, POA): * Baseline Cr 1.5, now 1.8 * Hydration with NS @100 mL/hr * Avoid nephrotoxic agents (NSAIDs, IV contrast) * Nephrology consult requested for CELAI + guidance on antibiotic dosing 3. Dehydration, Hypovolemic Hyponatremia (POA): * Mild hyponatremia (Na 134), clinically volume-depleted * Continue IVF (NS @100 mL/hr) * Monitor daily BMP, urine output 4. Anemia Normocytic Hypochromic (POA): * Hb 9.6, MCV 78.9; likely ACD + iron deficiency * Continue ferrous sulfate * Monitor retic count, iron panel, haptoglobin, LDH 5. Severe Lower Back Pain (New Problem): * Consider vertebral compression, metastasis, or osteomyelitis * CT Lumbar Spine without contrast ordered * Lidocaine patch to back PRN * Percocet 5/325 mg PO Q6H PRN for severe pain * Avoid NSAIDs due to renal impairment * PT eval ordered for early mobilization 6. Hypoalbuminemia, Malnutrition (POA): * Albumin 2.1 * Nutritional support encouraged * Nutrition consult pending 7. DM2 Uncontrolled (POA): * FSBS 150, down from 258 * Continue sliding scale insulin * Hold oral agents 8. Hypertension (POA): * Resume Amlodipine 5 mg PO BID * Labetalol 10 mg IV PRN Q6H for SBP >160 9. History of Colon & Bladder Cancer (POA): * Stable, surveillance ongoing * Recent cystoscopy reportedly normal * Coordinate with outpatient oncology 10. 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 I reviewed the documentation, medical decision making, and treatment plan as noted by the resident above. I agree with the findings and plan of care. Chris Chi MD, MD, RAGHAVA R MD Feb 27, 2025 10:02
--- NOTE | 2025-02-27 11:00 | NUR ---
PATIENT REFUSED SECONDARY TO PAIN.
--- NOTE | 2025-02-27 11:35 | CONS ---
REFERRING PHYSICIAN: Corey Tamayo MD REASON FOR CONSULTATION: Renal failure. HISTORY OF PRESENT ILLNESS: A 74-year-old female with a history of diabetes mellitus and hypertension. The patient with a history of hypercholesterolemia. She does have a history of bladder cancer, follows up at [facility]. The patient presented to the hospital with failure to thrive. The patient has been having poor oral intake and generalized fatigue. In the Emergency Room, the patient found to have underlying pyuria. The patient with underlying fevers and she is being seen in consultation for all the above. Laboratory values did reveal an elevated BUN and creatinine. PAST MEDICAL HISTORY: Diabetes mellitus, hypertension, hypercholesterolemia, bladder cancer. PAST SURGICAL HISTORY: Nephrectomy, colon resection. SOCIAL HISTORY: She lives independently. There is no active tobacco use. FAMILY HISTORY: No renal disease in the family. ALLERGIES: SHE HAS AN ALLERGY TO PENICILLIN. MEDICATIONS: All noted. REVIEW OF SYSTEMS: GENERAL: She is feeling weak and tired. HEENT: No change in vision. No change in hearing. CARDIOVASCULAR: There is no current chest pain or palpitations. PULMONARY: No shortness of breath. GASTROINTESTINAL: She is tolerating a diet. MUSCULOSKELETAL: Complains of weakness. NEUROLOGIC: No seizures or focal deficits. PSYCHIATRIC: No history of hallucinations or psychosis. ENDOCRINE: Diabetes mellitus. No history of thyroid disease. HEME: As described above. PHYSICAL EXAMINATION: VITAL SIGNS: Blood pressure 136/69, T-max is 101 degrees Fahrenheit, pulse in the 100s. GENERAL: She is a chronically ill female, lying in bed on the medical floor. HEENT: Head is atraumatic. Pupils equal, roving to light. Oropharynx is without exudate. Nares clear. NECK: There is no JVP. There is no thyromegaly, no mass. CARDIOVASCULAR: Regular. There is no S3, S4 gallop. LUNGS: Coarse with equal thoracic movement. ABDOMEN: Soft, nondistended, nontender. EXTREMITIES: Reveal no clubbing, no cyanosis. NEUROLOGICAL: She is awake. She is alert. She is oriented. SKIN: Reveals no rash or nodules. BACK: There is no CVA tenderness, no back deformities. LABORATORY DATA: Sodium 134, potassium 3.3, BUN 17, creatinine 1.8. Hemoglobin 9.6, hematocrit 30. CT scan is noted. Urinalysis reveals pyuria. IMPRESSION: * Acute renal failure. * Pyelonephritis. * Diabetes mellitus. * Hypertension. * History of bladder cancer. PLAN: The patient continues with the IV antibiotics as well as the IV hydration. Creatinine has stabilized overnight. The patient with significant pyuria and has been started on antibiotics. Cultures are all pending and we will continue to follow closely. The patient does follow up at [facility]. The patient will need followup when she is discharged to home. All labs can be repeated in the a.m. We will continue to follow the patient closely. CT scan of the abdomen is noted. We will obtain iron levels for completeness. TID: [id number] RECEIPT: [id number]
[2025-02-27] MEDS: GABAPENTIN 300 MG CAPSULE PO SCH (12:40)
[2025-02-27] MEDS ORDERED: GLUCAGON 1MG KIT 1 MG ML IM PRN (13:00)
[2025-02-27] MEDS ORDERED: PoTASSium chloRIDE 20MEQ/100ML 100 ML IV PRN (13:00)
[2025-02-27] MEDS ORDERED: DEXTROSE 50%-WATER 50 ML DISP.SYRIN IV PRN (13:00)
--- NOTE | 2025-02-27 13:53 | NUR ---
DCP Patient states she lives with Boni Do, Son/Provider [phone] in a house with one step entrance and walk in shower. 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 States able to complete ADL's on her own most of the time and occasionally needing assistance. States she has a shower chair and regular walker. Denies home health services and dialysis. [facility] provided 23.5 hours per week for Boni Do, Son/Provider [phone]. PCP - Bonita Dexter DO [facility]. Upon discharge, states Boni Do Son/Provider [phone] home and assist with care, as needed. HX -- HX of bladder cancer that has spread, metastatic cancer Addendum: 02/27/25 at 1402 by ABHINAV EDWARDS RN CM Amended: Links added.
--- NOTE | 2025-02-27 15:44 | HMCIMG ---
CT LUMBAR SPINE W/O CONTRAST HISTORY: Low back pain COMPARISON: None TECHNIQUE: Multiple sequential axial images of the lumbar spine were obtained including post processing sagittal and coronal reconstruction images. Patient was not given contrast through intravenous route. 3-dimensional reconstruction images were obtained. FINDINGS: Grade 1 anterolisthesis is seen at L4-5 level. Endplate degenerative changes with disc space narrowing at L5-S1 level. There is no loss of vertebral height. Evaluation for disc and cord pathology is limited with CT study. No evidence of fracture or dislocation is seen. IMPRESSION: 1. No fracture is seen. DJD. CT was performed with one or more following dose reduction techniques: automated exposure control, adjustment of the mA and kv according to patient's size, or use of a iterative reconstruction technique.
[2025-02-27] MEDS: FAMOTIDINE 20MG TAB PO SCH (17:35)
[2025-02-27] MEDS: LIDOCAINE 5% TOPICAL PATCH TP SCH (17:36)
--- NOTE | 2025-02-27 22:19 | CONS ---
INFECTIOUS DISEASE CONSULTATION DATE OF SERVICE: 02/27/2025 REQUESTING PHYSICIAN: Corey Tamayo MD REASON FOR CONSULTATION: Sepsis and antibiotic management. HISTORY OF PRESENT ILLNESS: A 74-year-old female with morbid obesity, hypertension, dyslipidemia and diabetes mellitus, presented to the hospital with fever, chills and urinary symptoms. The patient also complained of generalized body ache. The patient also had poor oral intake. No headache or dizziness. No chest pain, no palpitation or orthopnea. Urinalysis found to be positive and urine culture came back with gram-negative mi. The patient has been started on meropenem. No sick contact or recent travel. PAST MEDICAL HISTORY: * Hypertension. * Dyslipidemia. * Diabetes mellitus. * Obesity. * Bladder cancer. * Colon cancer. PAST SURGICAL HISTORY: * Right nephrectomy. * Bladder tumor resection. * Partial colectomy. * Cystoscopy. ALLERGIES: * PENICILLIN, but tolerating meropenem. * HEPARIN. CURRENT MEDICATIONS: Reviewed. SOCIAL HISTORY: Lives with son. No alcohol, tobacco or illicit drug use. FAMILY HISTORY: Positive for diabetes mellitus. REVIEW OF SYSTEMS: CONSTITUTIONAL: Positive for fever and chills. No weight loss or night sweats. EYES: No eye pain. No photophobia or diplopia. HENT: No sore throat. No rhinorrhea or earache. NECK: No neck pain or neck swelling. RESPIRATORY: No cough. No hemoptysis or pleuritic pain. CARDIOVASCULAR: No chest pain. No palpitation or orthopnea. GASTROINTESTINAL: ____ vomiting, abdominal pain. GENITOURINARY: No dysuria, urgency or urinary frequency. CENTRAL NERVOUS SYSTEM: No headache, dizziness, or slurred speech. PSYCHIATRY: No depression. No suicidal ideation. MUSCULOSKELETAL: No joint pain or joint swelling. PHYSICAL EXAMINATION: GENERAL: Elderly female, awake. VITAL SIGNS: Temperature 100.8, pulse 109, respiratory rate 22, BP 126/69. EYES: No icterus. Pupils equal and reactive. HENT: No oral thrush seen. Moist oral mucosa. BACK: Supple. No JVD or thyromegaly. LUNGS: Good air entry. No rales, no rhonchi. CARDIOVASCULAR: S1, S2 regular. No murmur heard. ABDOMEN: Morbidly obese, soft, nontender. Bowel sound is present. CENTRAL NERVOUS SYSTEM: Awake, alert and oriented x 3. No focal deficits. SKIN: No rashes. No itchiness. LYMPHATIC: No peripheral lymphadenopathy. BACK: No deformity. No pressure ulcer. MUSCULOSKELETAL: No joint swelling, erythema, or tenderness. LABORATORY DATA: Sodium 134, potassium 3.8. BUN 17, creatinine 1.8. WBC 6.3, hemoglobin 9.6, platelet 144. Urine culture growing gram-negative mi. RADIOLOGY: CT of the abdomen unremarkable. ASSESSMENT: A 74-year-old female admitted with fever and chills. Current problems include: * Gram-negative sepsis. * Urinary tract infection. * Acute renal failure. * Dehydration. * Diabetes mellitus. * Morbid obesity. * Anemia. PLAN: * Continue meropenem. * Continue pain management. * Continue antidiabetic. * Continue antiemetic. * Follow up cultures. * Monitor electrolytes and correct as needed. * Continue DVT prophylaxis. * Antibiotic will be adjusted when culture updated or finalized. Thank you for allowing me to participate in the care of this patient. TID: [id number] RECEIPT: [id number]
[2025-02-28] VITALS (8 sets, daily range): BP systolic 131–165; BP diastolic 66–78; PULSE 101–112; RESP 16–20; TEMP 98.4–100.8; O2SAT 95–97
[2025-02-28 05:25] LABS: BASOPHILS # (AUTO) 0.04 K/uL (0.00-0.20); BASOPHILS % (AUTO) 0.6 % (0.0-5.0); EOSINOPHILS # (AUTO) 0.01 K/uL (0.00-0.70); EOSINOPHILS % (AUTO) 0.2 % (0.0-8.0); HEMATOCRIT 28.4 % (36-48); IMMATURE GRANULOCYTE ABSOLUTE 0.03 K/uL (0-1); LYMPHOCYTES # (AUTO) 0.8 K/uL (1.0-4.8); LYMPHOCYTES % (AUTO) 11.9 % (21.0-51.0); MEAN CORPUSCULAR HEMOGLOBIN 25.1 pg (27.0-33.0); MEAN CORPUSCULAR HGB CONC 31.7 g/dL (32.0-36.0); MEAN CORPUSCULAR VOLUME 79.1 fL (79-99); MONOCYTES # (AUTO) 0.5 K/uL (0.1-1.0); MONOCYTES % (AUTO) 8.1 % (3.0-13.0); NEUTROPHILS % (AUTO) 78.7 % (40.0-77.0); PLATELET COUNT (AUTO) 113 K/uL (130-400); RED BLOOD CELL COUNT(AUTO) 3.59 MIL/uL (4.00-5.50); RED CELL DISTRIBUTION WIDTH 15.3 % (11.0-15.5); WHITE BLOOD COUNT (AUTO) 6.4 K/uL (4.8-10.8)
[2025-02-28 05:53] LABS: ALBUMIN 1.9 g/dL (3.5-5.0); BILIRUBIN,TOTAL 0.4 mg/dL (0.2-1.0); CREATININE 2.1 mg/dL (0.5-1.0); POTASSIUM 3.8 mmol/L (3.5-5.1); TOTAL PROTEIN, SERUM 6.3 g/dL (6.0-8.3)
[2025-02-28 05:58] LABS: % IRON SATURATION 16.6 % (22-44)
--- NOTE | 2025-02-28 07:05 | NUR ---
PT is received The patient is received with report from the shift mechanic nurse. This patient is in no distress and resting in bed. She has her call shore in reach and the bed in a low position.
[2025-02-28] MEDS: venLAFAXine HCL XR 37.5 MG CAP 37.5 MG CAP.ER.24H PO SCH (08:12)
[2025-02-28] MEDS: amLODIPine 5 MG TAB PO SCH (08:12)
--- NOTE | 2025-02-28 14:02 | PN ---
[facility] PROGRESS NOTE Date of Service: Feb 28, 2025 Time of Service: 14:01 SUBJECTIVE: [ ] Date of service: 02/26/2025, patient was seen in ER room 17 74-year-old female with underlying history of hypertension, hyperlipidemia, type 2 diabetes mellitus, obesity, history of bladder cancer followed at [facility], prior history of colon cancer who presented to the ER for further evaluation of generalized weakness, poor oral intake, malaise and asthenia. Symptoms have been ongoing for the past 3-4 days where patient reports having poor oral intake and myalgias. Patient reports that on 02/18/25, she had a routine surveillance cystoscopy done in [facility], and since then she has been feeling unwell. Patient denies any headache or focal weakness of upper or lower extremities. She has a history of bladder cancer several years ago for which she underwent chemotherapy as well as surgery. 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 Patient has a history of right renal nephrectomy. On presentation to the hospital, patient was noted to be afebrile with T-max of 99.3, tachycardic with heart rate in the 100s, blood pressure of 154/72. Labs on presentation showed WBC count of 6400, hemoglobin of 10, platelet count of 664342. BMP remarkable for sodium 132, potassium 3.7, BUN of 20, creatinine 2.1, magnesium 1.5, procalcitonin was elevated at 3.19 with AST of 79, ALT of 63, alkaline phosphatase of 187. Urinalysis showed cloudy urine with pyuria, bacteriuria. Patient will be admitted for further management of urinary tract infection and dehydration. Patient does have underlying history of penicillin allergy with renal failure. Patient will be started on broad-spectrum antibiotics with IV Merrem venom and consultation with Infectious Disease will be requested. We will see how patient progresses closely. February 27, 2025 74-year-old female remains admitted for generalized weakness and poor oral intake, initially presenting on February 26, 2025. Patient reports slight improvement in energy today but still feels overall weak and unable to ambulate independently. She has been able to take oral fluids and a light meal, which she tolerated well. She continues to complain of significant lower back pain (rated 7/10), described as dull, aching, non-radiating, worsened with movement. Denies saddle anesthesia, bowel or bladder incontinence. No current fever, chills, chest pain, palpitations, nausea, or vomiting. Denies any new neurological symptoms. Patient is aware that urine analysis and preliminary culture was positive and is currently receiving IV meropenem. She is agreeable to physical therapy assessment. No new urinary complaints. Mild improvement in mental clarity and fatigue. 02/28/25 74-year-old female with a complex medical history remains admitted for complicated UTI, CELIA on CKD, and generalized weakness. Today she is febrile (Tmax 100.8F) and tachycardic (HR 038508 bpm). She continues to feel weak but is tolerating PO fluids and food. Back pain is mild and controlled with Tylenol. No new shortness of breath, chest pain, or focal neurological symptoms. Patient has been informed that her urine culture grew gram-negative rods; sensitivities are pending. She remains on renal-dosed IV meropenem. Reports no nausea, vomiting, or new urinary symptoms. Oriented and cooperative. REVIEW OF SYSTEMS CONSTITUTIONAL: Fevers, chills, asthenia malaise NEUROLOGICAL: Denies headache, amaurosis fugax, motor weakness, sensory deficit, vertigo/spinning sensation, gait abnormalities, or tremors. ENT: No hearing loss, otalgia, otorrhea, rhinitis, rhinorrhea, hoarseness, or sore throat. CARDIOVASCULAR: Denies any exertional angina, dyspnea on exertion, orthopnea, paroxysmal nocturnal dyspnea, palpitations, life-threatening arrhythmias, claudication. PULMONARY: Denies any shortness of breath, cough, phlegm/sputum, hemoptysis, pleuritic chest pain. SLEEP: Denies morning headaches, daytime somnolence or napping. Denies difficulty falling asleep, staying asleep, waking from sleep. Denies knowledge of snoring. GASTROINTESTINAL: Poor oral intake with nausea GENITOURINARY: Denies frequency, urgency, nocturia, hematuria or incontinence (Storage/Irritative symptoms.) Low urinary stream, straining to void, urinary intermittency or hesitancy, splitting of the voiding stream, terminal dribbling. ENDOCRINOLOGIC: Denies polyuria, polydipsia, polyphagia or heat/cold intolerances. HEMATOLOGIC: Denies thrombophilia/previous clots, or coagulopathy/bleeding disorders. ONCOLOGIC: Denies personal history of malignancy. DERMATOLOGIC: Denies rashes or pruritus. PSYCHIATRIC: Denies any suicidal or homicidal ideation. Denies hallucinations. PHYSICAL EXAM GENERAL APPEARANCE: The patient is awake, alert, and oriented, in no acute cardiopulmonary distress. Appears frail and debilitated NEUROLOGICAL: Cranial nerves II-XII grossly intact. Motor is 5/5 in bilateral upper and lower extremities proximal to distal. No sensory deficits. HEENT: Face is symmetric. Pupils are equal and reactive. Extraocular movements are intact. NECK: Supple. No JVD. No thyromegaly. No submental, submandibular, pre- /postauricular, occipital or supraclavicular lymphadenopathy. CHEST: Normal chest expansion. No Telemetry. LUNGS: Absence of any rales, rhonchi or any wheezing. CARDIOVASCULAR: Regular. S1 and S2 normal. No appreciable rubs, murmurs or gallops. ABDOMEN: Soft, nontender, and nondistended. There is no rebound, voluntary guarding, or rigidity. : Deferred. No Kent. EXTREMITIES: Non-edematous and not cyanotic. No clubbing. Good capillary refill. SKIN: No skin breakdown. Vital Signs (last 8hr) Date Time Temp Pulse Resp B/P (MAP) Pulse Ox O2 Delivery O2 Flow Rate FiO2 02/28/25 11:04 98.8 101 16 131/70 98 Room Air 02/28/25 09:50 97 Room Air* 0 21 02/28/25 07:43 100.8 105 18 140/75 97 Room Air LABS: Laboratory: Test 02/28/25 10:39 02/28/25 05:16 02/27/25 05:21 02/26/25 16:23 Range/Units Whole Blood Glucose 136 H 70-110 MG/DL White Blood Count 6.4 4.8-10.8 K/uL Red Blood Count 3.59 L 4.00-5.50 MIL/uL Hemoglobin 9.0 L 12.0-16.0 g/dL Hematocrit 28.4 L 36-48 % Mean Corpuscular Volume 79.1 79-99 fL Mean Corpuscular Hemoglobin 25.1 L 27.0-33.0 pg Mean Corpuscular Hemoglobin Concent 31.7 L 32.0-36.0 g/dL Red Cell Distribution Width 15.3 11.0-15.5 % Platelet Count 113 L 130-400 K/uL Mean Platelet Volume 11.3 H 7.5-10.5 fL Immature Granulocyte % (Auto) 0.5 0-1 % Neutrophils (%) (Auto) 78.7 H 40.0-77.0 % Lymphocytes (%) (Auto) 11.9 L 21.0-51.0 % Monocytes (%) (Auto) 8.1 3.0-13.0 % Eosinophils (%) (Auto) 0.2 0.0-8.0 % Basophils (%) (Auto) 0.6 0.0-5.0 % Neutrophils # (Auto) 5.0 1.8-7.7 K/uL Lymphocytes # (Auto) 0.8 L 1.0-4.8 K/uL Monocytes # (Auto) 0.5 0.1-1.0 K/uL Eosinophils # (Auto) 0.01 0.00-0.70 K/uL Basophils # (Auto) 0.04 0.00-0.20 K/uL Absolute Immature Granulocyte (auto 0.03 0-1 K/uL Nucleated Red Blood Cells 0.0 0.0-0.19 % Sodium Level 135 L 136-145 mmol/L Potassium Level 3.8 3.5-5.1 mmol/L Chloride Level 104 101-111 mmol/L Carbon Dioxide Level 20 L 21-32 mmol/L Blood Urea Nitrogen 19 H 7-18 mg/dL Creatinine 2.1 H 0.5-1.0 mg/dL Glomerular Filtration Rate Calc 25 >90 mL/min Random Glucose 126 H 70-105 mg/dL Total Calcium 7.7 L 8.5-10.1 mg/dL Iron Level 22 L 50-170 mcg/dL Total Iron Binding Capacity 132 L 250-450 mcg/dL Percent Iron Saturation 16.6 L 22-44 % Total Bilirubin 0.4 0.2-1.0 mg/dL Aspartate Amino Transf (AST/SGOT) 79 H 10-37 U/L Alanine Aminotransferase (ALT/SGPT) 44 12-78 U/L Alkaline Phosphatase 171 H 50-136 U/L Total Protein 6.3 6.0-8.3 g/dL Albumin 1.9 L 3.5-5.0 g/dL White Cell Morphology Comment See comments Magnesium Level 1.80 1.80-2.40 mg/dL Brucella Total Antibody Agglutin NEGATIVE NEGATIVE Paratyphoid A Antibody NEGATIVE NEGATIVE Paratyphoid B Antibody NEGATIVE NEGATIVE Proteus OX-19 Antibody NEGATIVE NEGATIVE Typhoid H Antibody NEGATIVE NEGATIVE Typhoid O Antibody NEGATIVE NEGATIVE Influenza Type A Antigen Negative For Type A NEGATIVE Influenza Type B Antigen Negative For Type B NEGATIVE SARS-CoV-2, RNA, NAAT NEGATIVE SARS CoV-2 NEGATIVE Test 02/26/25 14:13 Range/Units Urine Color YELLOW YELLOW Urine Appearance CLOUDY H CLEAR Urine pH 6.0 5.0-8.0 Urine Specific [place] 1.025 1.001-1.031 Urine Protein 100 H NEGATIVE mg/dL Urine Glucose (UA) 250 H NEGATIVE mg/dL Urine Ketones NEGATIVE NEGATIVE mg/dL Urine Occult Blood MODERATE H NEGATIVE Urine Nitrate NEGATIVE NEGATIVE Urine Bilirubin NEGATIVE NEGATIVE mg/dL Urine Urobilinogen 0.2 0.2-1.0 mg/dL Urine Leukocyte Esterase TRACE H NEGATIVE Micki/uL Urine RBC 2-5 H 0-1 /HPF Urine WBC 51-100 H 0-1 /HPF Urine WBC Clumps (Auto) RARE 0-1 /HPF Urine Squamous Epithelial Cells MOD 0-2 /HPF Urine Non-Squamous Epithelial Cells 1 0-2 /HPF Urine Bacteria MOD None Seen /HPF Urine Hyaline Casts 6-10 H 0-1 /LPF /LPF Urine Yeast RARE None Seen /HPF Current Medications Medications (Trade) Dose Ordered Sig/Sonja Route PRN Reason Start Time Stop Time Status Last Admin Dose Admin Acetaminophen (TYLenol 325MG TAB) 650 mg Q6H PRN PO MILD PAIN (1-3) 02/26/25 16:30 03/28/25 16:29 02/28/25 09:25 650 MG Amlodipine Besylate (NorvASC 5MG TAB) 5 mg Q12H PO 02/26/25 15:30 02/27/25 20:24 DC 02/27/25 17:36 5 MG Amlodipine Besylate (NorvASC 5MG TAB) 5 mg Q12H PO 02/28/25 09:00 03/30/25 08:59 02/28/25 08:12 5 MG Ceftriaxone Sodium (ROCEphine 1G INJ) 1 gm Q24H IVPB 02/26/25 14:30 02/26/25 14:38 DC Dextrose (D50w) 50 ml AD PRN IV HYPOGLYCEMIA PROTOCOL 02/27/25 13:00 03/29/25 12:59 Famotidine (Pepcid 20mg Tab) 20 mg ONCE PO 02/27/25 13:30 02/28/25 11:00 DC 02/27/25 17:35 20 MG Gabapentin (NEURontin 300 MG CAP) 600 mg BID PO 02/27/25 12:30 03/29/25 12:29 02/28/25 08:12 600 MG Glucagon (Glucagon 1mg Kit) 1 mg AD PRN IM HYPOGLYCEMIA PROTOCOL 02/27/25 13:00 03/29/25 12:59 Insulin Human Regular (humuLIN R 100 UNIT/ML 3ML) INSULIN SLIDING SCAL... ACHS SQ 02/26/25 16:30 03/28/25 16:29 02/26/25 17:08 4 UNIT Labetalol HCl (TRANdate 20MG SYG) 10 mg Q6H PRN IV SBP> 170 02/26/25 15:30 03/28/25 15:29 Levofloxacin/ Dextrose 100 ml @ 100 mls/hr Q48H IV 02/26/25 16:30 02/26/25 16:08 DC Lidocaine (Lidoderm Patch 5%) 1 patch Q24H TP 02/27/25 13:00 03/29/25 12:59 02/28/25 12:40 1 PATCH Magnesium Sulfate 50 ml @ 0 mls/hr PROTOCOL IV 02/26/25 15:30 03/28/25 15:29 02/26/25 17:01 25 MLS/HR Meropenem (Merrem 500mg) 500 mg Q12H IVPB 02/26/25 16:30 03/08/25 16:29 02/28/25 03:35 500 MG Ondansetron HCl (zoFRAN 4MG INJ) 4 mg Q6H PRN IVP NAUSEA/VOMITING 02/26/25 16:30 03/28/25 16:29 02/27/25 09:55 4 MG Oxycodone/ Acetaminophen (perCOCET) 1 tab Q6H PRN PO SEVERE PAIN (7-10) 02/27/25 13:00 03/06/25 12:59 Potassium Chloride 100 ml @ 50 mls/hr AD PRN IV POTASSIUM PROTOCOL 02/27/25 13:00 03/29/25 12:59 Sodium Chloride 1,000 ml @ 100 mls/hr Q10H IV 02/26/25 15:30 03/28/25 15:29 02/28/25 11:05 100 MLS/HR Thiamine HCl (Vitamin B-1) 100 mg Q24H IVP 02/26/25 15:30 03/28/25 15:29 02/27/25 17:43 100 MG Venlafaxine HCl (EffEXOR XR 37.5mg CAP) 150 mg DAILY PO 02/28/25 09:00 03/30/25 08:59 02/28/25 08:12 150 MG DIAGNOSTICS / RADIOLOGY: [ ] PATIENT: DANIEL SOLIMAN MR#: [id number] : 1950 SEX: F AGE: 74 LOCATION: 3CH ORDER 1305 STATUS: ADM IN REPORT#: [id number] SERVICE 1253 REASON: Lumbar back pain rule out metastasis ORDERING PHYSICIAN: NAKIA LIZ MD PROCEDURE: L SPIN WO - CT LUMBAR SPINE W/O CONTRAST CT LUMBAR SPINE W/O CONTRAST HISTORY: Low back pain COMPARISON: None TECHNIQUE: Multiple sequential axial images of the lumbar spine were obtained including post processing sagittal and coronal reconstruction images. Patient was not given contrast through intravenous route. 3-dimensional reconstruction images were obtained. FINDINGS: Grade 1 anterolisthesis is seen at L4-5 level. Endplate degenerative changes with disc space narrowing at L5-S1 level. There is no loss of vertebral height. Evaluation for disc and cord pathology is limited with CT study. No evidence of fracture or dislocation is seen. IMPRESSION: 1. No fracture is seen. DJD. CT was performed with one or more following dose reduction techniques: automated exposure control, adjustment of the mA and kv according to patient's size, or use of a iterative reconstruction technique. DICTATED BY: DAVID RODRIGUEZ MD DATE: 02/27/25 1533 ELECTRONICALLY SIGNED BY: DAVID RODRIGUEZ MD DATE: 02/27/25 1544 PATIENT: DANIEL SOLIMAN MR#: [id number] : 1950 SEX: F AGE: 74 LOCATION: ED[facility]IP ORDER 1522 STATUS: ADM IN REPORT#: [id number] SERVICE 1519 REASON: hx of colon and bladder cancer, uti, recent cystoscopy, hx of neprhectomy ORDERING PHYSICIAN: JEB HELM MD PROCEDURE: ABD PEL WO - CT ABDOMEN/PELVIS W/O CONTRAST CT ABDOMEN/PELVIS W/O CONTRAST HISTORY: History of colon and bladder cancer COMPARISON: None TECHNIQUE: Multiple sequential axial images of the abdomen and pelvis were obtained from the dome of the diaphragm through symphysis pubis. Patient was not given contrast through intravenous route. Oral contrast was not given. Reconstruction images were not obtained. This is limiting evaluation. FINDINGS: No pleural effusion is seen bilaterally. There is no evidence of parenchymal disease or pulmonary nodule of the visualized lower lungs. Degenerative changes of the thoracolumbar spine are present. The heart is not enlarged. Postcholecystectomy changes are seen. A small hiatal hernia is seen. The study is limited due to lack of oral and IV contrast. The liver, spleen, adrenal glands and pancreas are unremarkable. 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 There may be minimal left hydronephrosis. No evidence of renal stone is seen. Fecal material is seen in the colon. There are normal size retroperitoneal and mesenteric lymph nodes. No ascites is seen. Atherosclerotic changes are present. Pelvic sidewalls are symmetric bilaterally. Deformity is seen of the right pubic ramus may be related to old trauma. Bladder is well distended without wall thickening. IMPRESSION: 1. The study is limited due to lack of oral and IV contrast. The study is limited due to the lack of two-dimensional reconstruction images. Small hiatal hernia is seen. No ascites is seen. Right kidney has been advanced and the minimal left hydronephrosis. CT was performed with one or more following dose reduction techniques: automated exposure control, adjustment of the mA and kv according to patient's size, or use of a iterative reconstruction technique. DICTATED BY: DAVID RODRIGUEZ MD DATE: 02/26/251611 ELECTRONICALLY SIGNED BY: DAVID RODRIGUEZ MD DATE: 02/26/25 161 ASSESSMENT: Complicated urinary tract infection, POA Sepsis without shock, POA CELIA on CKD, POA History of right renal nephrectomy, POA Dehydration, POA Normocytic anemia, POA History of bladder cancer, POA Prior history of colon cancer about 20 years ago status post colon resection, POA Hypomagnesemia, POA Hypovolemic hyponatremia, POA Underlying history of hypertension, POA Hyperlipidemia, POA Type 2 diabetes mellitus, POA Obesity, POA History of allergy to penicillin and heparin, POA PLAN: CT Lumbar spine (non-contrast): No fracture. Degenerative joint disease Urine Culture: >100,000 CFU, gram-negative rods. Sensitivities pending Blood Cultures: No growth after 24h Urine Output: 0.33 mL/kg/hr concerning for oliguria CRP: Ordered today, and repeat CRP scheduled for tomorrow Echocardiogram (TTE): Ordered today to rule out occult cardiac source of fever (e.g., endocarditis) Patient will be admitted to medical-surgical floor under telemetry monitoring We will request consultation with Infectious Disease and Nephrology We will request consultation with Physical therapy for patient mobilization Anticipate hospitalization for at least 48-72 hours, we will follow up patient closely All labs will be repeated in the morning Medications were renally dose, avoid any NSAIDs, avoid any nephrotoxic medications Complicated UTI (POA): Gram-negative bacteriuria with persistent fever and tachycardia Awaiting sensitivities; on renal-dosed meropenem Kent-associated, high risk of upper tract involvement * Started on Meropenem 500 mg IV Q12H, renal-dosed ID to review for source control and antibiotic narrowing CRP trended (today and tomorrow) Monitor lactate, CRP, WBC, and urine output closely Monitor fever pattern, repeat BCx if febrile after 4872h * Continue Kent care, monitor urine output 2. Acute Kidney Injury on CKD (Stage 3b, POA): * Baseline Cr 1.5, now 2.1 Continue IV NS @ 100 mL/hr Daily BMP, monitor Cr and urine output Nephrology to review renal dosing, UOP status * Avoid nephrotoxic agents (NSAIDs, IV contrast) CVS Echocardiogram ordered to assess for potential endocarditis or structural cause of persistent fever Monitor HR trend (now 420910) 3. Dehydration, Hypovolemic Hyponatremia (POA): * Mild hyponatremia (Na 134), clinically volume-depleted * Continue IVF (NS @100 mL/hr) * Monitor daily BMP, urine output 4. Anemia Normocytic Hypochromic (POA): * Hb 9.6, MCV 78.9; likely ACD + iron deficiency * Continue ferrous sulfate * Monitor retic count, iron panel, haptoglobin, LDH 5. Severe Lower Back Pain : * Lidocaine patch to back PRN * Percocet 5/325 mg PO Q6H PRN for severe pain * Avoid NSAIDs due to renal impairment * PT eval ordered for early mobilization 6. Hypoalbuminemia, Malnutrition (POA): * Albumin 2.1 * Nutritional support encouraged * Nutrition consult pending 7. DM2 Uncontrolled (POA): * FSBS 150, down from 258 * Continue sliding scale insulin * Hold oral agents 8. Hypertension (POA): * Resume Amlodipine 5 mg PO BID * Labetalol 10 mg IV PRN Q6H for SBP >160 9. History of Colon & Bladder Cancer (POA): * Stable, surveillance ongoing * Recent cystoscopy reportedly normal * Coordinate with outpatient oncology 10. 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 I reviewed the documentation, medical decision making, and treatment plan as noted by the resident above. I agree with the findings and plan of care. Chris Chi MD, RAGHAVA R MD Feb 28, 2025 14:02
--- NOTE | 2025-02-28 14:30 | NUR ---
SPEECH TRIGGER COMPLETED / DEHYDRATION Pt IS A 74 Y.O. FEMALE ADMITTED SECONDARY TO DEHYDRATION, CONCERN FOR OCCULT SEPSIS, AND UTI AND FOR FURTHER EVALUATION OF GENERALIZED WEAKNESS, POOR ORAL INTAKE, MALAISE AND ASTHENIA. Pt HAS A PAST MEDICAL HISTORY SIGNIFICANT FOR HYPERTENSION, HYPERLIPIDEMIA, TYPE 2 DM, OBESITY, AND Hx OF BLADDER CANCER. Pt CURRENTLY ON CONSISTENT CARB DIET (REGULAR TEXTURE AND THIN LIQUIDS). PER NURSE JOVEL, Pt TOLERATING DIET WITH NO OVERT S/S OF ASPIRATION. PLEASE REQUEST SPEECH THERAPY SERVICES FOR SKILLED BEDSIDE SWALLOW EVALUATION IF Pt PRESENTS WITH +S/S OF ASPIRATION SUCH COUGH RESPONSE, THROAT CLEAR, OR WET VOCAL QUALITY DURING ORAL INTAKE. ALL QUESTIONS ANSWERED AT THIS TIME. Addendum: 02/28/[address] [facility]DA SEGURA Amended: Links added.
[2025-02-28] MEDS: LACTULOSE 20 GM/30 ML UDCUP PO PRN (14:52)
--- NOTE | 2025-02-28 16:56 | PN ---
INFECTIOUS DISEASE PROGRESS NOTE Date of Service: Feb 28, 2025 SUBJECTIVE: This 74-year-old female patient is being seen today at bedside. Awake, alert and oriented x3. a T-max of a 100.8 being reported this morning. Patient denies dysuria or hematuria. Patient remains on antibiotics tolerating well. Gram negative rods growing to urine, pending final results. Denies chest pain or shortness of breath. No nausea or vomiting. Family at bedside. We continue to follow. PHYSICAL EXAM EYES: Anicteric. Pupils equal and reactive. HENT: No oral thrush seen, moist Oral mucosa NECK: Supple, no JVD or thyromegaly. LUNGS: Good air entry. No rales, no rhonchi. CARDIOVASCULAR: S1, S2 regular. No murmur heard. ABDOMEN: Soft, non tender, bowel sounds present, no organomegaly CENTRAL NERVOUS SYSTEM: Awake, alert, oriented x 3. No focal deficits. SKIN: No rashes, no swelling. LYMPHATICS: No peripheral lymphadenopathy MUSCULOSKELETAL: No joint swelling, erythema or tenderness. EXTREMITIES: No cyanosis or clubbing BACK: No deformity, no pressure ulcer. GENITOURINARY: No dysuria or hematuria Vital Sign (Last 12 Hours) 02/28/25 02/28/25 02/28/25 02/28/25 07:43 09:50 11:04 15:30 Temp 100.8 98.8 99.9 Pulse 105 101 106 Resp 18 16 18 B/P (MAP) 140/75 131/70 165/66 Pulse Ox 97 97 98 99 O2 Delivery Room Air Room Air* Room Air Room Air O2 Flow Rate 0 FiO2 21 Intake & Output (last 24hrs) 02/27/25 02/27/25 02/28/25 15:00 23:00 07:00 Output Total 250 ml Balance -250 ml LABS: Laboratory: Test 02/28/25 15:50 02/28/25 15:26 02/28/25 05:16 02/27/25 05:21 Range/Units Whole Blood Glucose 223 #H 70-110 MG/DL Lactic Acid Level 1.4 0.8-2.5 mmol/L White Blood Count 6.4 4.8-10.8 K/uL Red Blood Count 3.59 L 4.00-5.50 MIL/uL Hemoglobin 9.0 L 12.0-16.0 g/dL Hematocrit 28.4 L 36-48 % Mean Corpuscular Volume 79.1 79-99 fL Mean Corpuscular Hemoglobin 25.1 L 27.0-33.0 pg Mean Corpuscular Hemoglobin Concent 31.7 L 32.0-36.0 g/dL Red Cell Distribution Width 15.3 11.0-15.5 % Platelet Count 113 L 130-400 K/uL Mean Platelet Volume 11.3 H 7.5-10.5 fL Immature Granulocyte % (Auto) 0.5 0-1 % Neutrophils (%) (Auto) 78.7 H 40.0-77.0 % Lymphocytes (%) (Auto) 11.9 L 21.0-51.0 % Monocytes (%) (Auto) 8.1 3.0-13.0 % Eosinophils (%) (Auto) 0.2 0.0-8.0 % Basophils (%) (Auto) 0.6 0.0-5.0 % Neutrophils # (Auto) 5.0 1.8-7.7 K/uL Lymphocytes # (Auto) 0.8 L 1.0-4.8 K/uL Monocytes # (Auto) 0.5 0.1-1.0 K/uL Eosinophils # (Auto) 0.01 0.00-0.70 K/uL Basophils # (Auto) 0.04 0.00-0.20 K/uL Absolute Immature Granulocyte (auto 0.03 0-1 K/uL Nucleated Red Blood Cells 0.0 0.0-0.19 % Sodium Level 135 L 136-145 mmol/L Potassium Level 3.8 3.5-5.1 mmol/L Chloride Level 104 101-111 mmol/L Carbon Dioxide Level 20 L 21-32 mmol/L Blood Urea Nitrogen 19 H 7-18 mg/dL Creatinine 2.1 H 0.5-1.0 mg/dL Glomerular Filtration Rate Calc 25 >90 mL/min Random Glucose 126 H 70-105 mg/dL Total Calcium 7.7 L 8.5-10.1 mg/dL Iron Level 22 L 50-170 mcg/dL Total Iron Binding Capacity 132 L 250-450 mcg/dL Percent Iron Saturation 16.6 L 22-44 % Total Bilirubin 0.4 0.2-1.0 mg/dL Aspartate Amino Transf (AST/SGOT) 79 H 10-37 U/L Alanine Aminotransferase (ALT/SGPT) 44 12-78 U/L Alkaline Phosphatase 171 H 50-136 U/L Total Protein 6.3 6.0-8.3 g/dL Albumin 1.9 L 3.5-5.0 g/dL White Cell Morphology Comment See comments Magnesium Level 1.80 1.80-2.40 mg/dL Brucella Total Antibody Agglutin NEGATIVE NEGATIVE Paratyphoid A Antibody NEGATIVE NEGATIVE Paratyphoid B Antibody NEGATIVE NEGATIVE Proteus OX-19 Antibody NEGATIVE NEGATIVE Typhoid H Antibody NEGATIVE NEGATIVE Typhoid O Antibody NEGATIVE NEGATIVE DIAGNOSTICS / RADIOLOGY: SPEC: [id number] LIZ: 02/26/25 STATUS: RES REQ: [id number] RECD: 02/27/[address]: ALISON KIDD DO SOURCE: URINE CATH ENTR: 02/27/[address]: SELF,REFERRAL SPDESC: CATHERIZED ORDERED: AERO ID & SENS Procedure Result Renu Date-Time AEROBIC ID & SENSITIVITIES Preliminary 02/28/25-804 MRL COLONY DESCRIPTION: DAY 1: COLONY COUNT: >100,000 CFU/ML GRAM NEGATIVE RODS IDENTIFICATION AND SENSITIVITY TO FOLLOW Test(s) performed by: [facility] [address] [place] [address] ASSESSMENT: Gram-negative sepsis Urinary tract infection Acute renal failure Morbid obesity Diabetes mellitus Dehydration Anemia PLAN: Continue meropenem Continue diabetic medication Continue nutrition support Monitor electrolytes Continue fall precaution Follow up culture This case has been discussed with my supervising physician Dr. Gonzáles. the case and plan has been discussed and agreed upon. RENAE BARNES [facility] Feb 28, 2025 16:56
[2025-02-28] MEDS: IRON sUCROse COMPLEX 300 MG in 0.9% NACL 250ML 250 ML IV ONE (20:43)
--- NOTE | 2025-02-28 21:20 | PN ---
SUBJECTIVE: A 74-year-old female with history of known bladder cancer. She initially presented to the hospital with acute on chronic renal dysfunction. The patient was found to have underlying pyuria and was started on broad-spectrum IV antibiotics. Culture results were all noted. She continues to have underlying fevers and she is being seen as a followup visit for all of the above. REVIEW OF SYSTEMS: GENERAL: She is feeling weak and tired. HEENT: No change in vision. No change in hearing, no nasal discharge, no sore throat. CARDIOVASCULAR: No current chest pains or palpitations. PULMONARY: There is no shortness of breath. GASTROINTESTINAL: The patient is tolerating a diet. MUSCULOSKELETAL: Complains of weakness. PHYSICAL EXAMINATION: VITAL SIGNS: Blood pressure 165/66, pulse in the 100s. T-max 100 degrees Fahrenheit. GENERAL: She is a chronically ill female, elderly, lying in bed on the medical floor. HEENT: Head is atraumatic. Pupils equal, roving to light. Oropharynx is without exudate. Nares clear. NECK: There is no JVP. There is no thyromegaly, no mass. CARDIOVASCULAR: Regular. There is no S3, S4 gallop. LUNGS: Coarse with equal thoracic movement. ABDOMEN: Soft, nondistended, nontender. EXTREMITIES: Reveal no clubbing, no cyanosis. NEUROLOGIC: She is awake. She is alert. She is oriented. LABORATORY DATA: Iron levels are noted. Sodium 135, BUN 19, creatinine is 2.1. White cell count 6000, hemoglobin 9, hematocrit 28. Urine growing out gram-negative rods. IMPRESSION: * Acute renal failure. * Gram-negative sepsis. * History of bladder cancer. * Anemia. PLAN: The patient remains on the broad-spectrum IV antibiotics. The patient's creatinine has remained fairly stable. Urine output has been adequate and we will continue to follow closely. The patient does have significant anemia. She will be started on IV iron while in the hospital and we will continue to follow the patient closely. The patient with multiple questions, all of which were answered. TID: [id number] RECEIPT: [id number]
[2025-03-01] VITALS (9 sets, daily range): BP systolic 132–171; BP diastolic 68–85; PULSE 104–116; RESP 16–20; TEMP 98.3–101.4; O2SAT 93–96
[2025-03-01 07:40] LABS: BASOPHILS # (AUTO) 0.06 K/uL (0.00-0.20); BASOPHILS % (AUTO) 0.5 % (0.0-5.0); EOSINOPHILS # (AUTO) 0.04 K/uL (0.00-0.70); EOSINOPHILS % (AUTO) 0.3 % (0.0-8.0); HEMATOCRIT 31.9 % (36-48); IMMATURE GRANULOCYTE ABSOLUTE 0.07 K/uL (0-1); LYMPHOCYTES % (AUTO) 8.3 % (21.0-51.0); MEAN CORPUSCULAR HEMOGLOBIN 25.1 pg (27.0-33.0); MEAN CORPUSCULAR HGB CONC 31.3 g/dL (32.0-36.0); MEAN CORPUSCULAR VOLUME 79.9 fL (79-99); MONOCYTES % (AUTO) 8.7 % (3.0-13.0); NEUTROPHILS # (AUTO) 9.4 K/uL (1.8-7.7); NEUTROPHILS % (AUTO) 81.6 % (40.0-77.0); PLATELET COUNT (AUTO) 98 K/uL (130-400); RED BLOOD CELL COUNT(AUTO) 3.99 MIL/uL (4.00-5.50); RED CELL DISTRIBUTION WIDTH 15.3 % (11.0-15.5); WHITE BLOOD COUNT (AUTO) 11.5 K/uL (4.8-10.8)
[2025-03-01 07:50] LABS: ALBUMIN 2.1 g/dL (3.5-5.0); BILIRUBIN,TOTAL 0.5 mg/dL (0.2-1.0); POTASSIUM 3.6 mmol/L (3.5-5.1)
[2025-03-01] MEDS: LAbetaLOL 20MG SYG IV PRN (08:23)
--- NOTE | 2025-03-01 10:48 | PN ---
NEPHROLOGY PROGRESS NOTE Date/Time Patient Seen: Mar 01, 2025 Reason for Consultation: 10:45 SUBJECTIVE: This is a 74-year-old female with history of known bladder cancer. She initially presented to the hospital with acute on chronic renal dysfunction. The patient was found to have underlying pyuria and was started on broad- spectrum IV antibiotics. Culture results were all noted. She continues to have underlying fevers Patient remains on the broad-spectrum IV antibiotics. The patient's creatinine has remained fairly stable. Urine output has been adequate and we will continue to follow closely. The patient does have significant anemia. She will be started on IV iron while in the hospital Renal function remained stable Electrolytes are stable. She continues on IV antibiotics Urine output was noted. She is complaining of generalized weakness She was seen in the medical floor, in no acute distress REVIEW OF SYSTEMS: GENERAL: Negative for any nausea, vomiting, fevers, chills, or weight loss. NEUROLOGIC: Negative for any blurry vision, blind spots, double vision, facial asymmetry, dysphagia, dysarthria, hemiparesis, hemisensory deficits, vertigo, ataxia. HEENT: Negative for any head trauma, neck trauma, neck stiffness, photophobia, phonophobia, sinusitis, rhinitis. CARDIAC: Negative for any chest pain, dyspnea on exertion, paroxysmal nocturnal dyspnea, peripheral edema. PULMONARY: Negative for any shortness of breath, wheezing, COPD, or TB exposure. GASTROINTESTINAL: Negative for any abdominal pain, nausea, vomiting, bright red blood per rectum, melena. GENITOURINARY: Negative for any dysuria, hematuria, incontinence. INTEGUMENTARY: Negative for any rashes, cuts, insect bites. RHEUMATOLOGIC: Negative for any joint pains, photosensitive rashes, history of vasculitis or kidney problems. HEMATOLOGIC: Negative for any abnormal bruising, frequent infections or bleeding. Vital Signs (last 8hr) Date Time Temp Pulse Resp B/P (MAP) Pulse Ox O2 Delivery O2 Flow Rate FiO2 03/01/25 10:38 96 Room Air* 0 21 03/01/25 08:23 116 171/80 03/01/25 07:43 98.2 116 19 171/80 96 Room Air 03/01/25 04:00 98.2 104 18 151/74 98 Room Air PHYSICAL EXAM: GENERAL: Alert and oriented x 3. No acute distress. Well-nourished. EYES: EOMI. Anicteric. HENT: Moist mucous membranes. No scleral icterus. No cervical lymphadenopathy. LUNGS: Clear to auscultation bilaterally. No accessory muscle use. CARDIOVASCULAR: Regular rate and rhythm. No murmur. No JVD. ABDOMEN: Soft, non-tender and non-distended. No palpable masses. EXTREMITIES: No edema. Non-tender.?SKIN: No rashes or lesions. Warm. NEUROLOGIC: No focal neurological deficits. CN II-XII grossly intact, but not individually tested. PSYCHIATRIC: Cooperative. Appropriate mood and affect. Current Medications Medications (Trade) Dose Ordered Sig/Sonja Route PRN Reason Start Time Stop Time Status Last Admin Dose Admin Acetaminophen (TYLenol 325MG TAB) 650 mg Q6H PRN PO MILD PAIN (1-3) 02/26/25 16:30 03/28/25 16:29 03/01/25 00:01 650 MG Amlodipine Besylate (NorvASC 5MG TAB) 5 mg Q12H PO 02/26/25 15:30 02/27/25 20:24 DC 02/27/25 17:36 5 MG Amlodipine Besylate (NorvASC 5MG TAB) 5 mg Q12H PO 02/28/25 09:00 03/30/25 08:59 03/01/25 08:33 5 MG Ceftriaxone Sodium (ROCEphine 1G INJ) 1 gm Q24H IVPB 02/26/25 14:30 02/26/25 14:38 DC Dextrose (D50w) 50 ml AD PRN IV HYPOGLYCEMIA PROTOCOL 02/27/25 13:00 03/29/25 12:59 Famotidine (Pepcid 20mg Tab) 20 mg ONCE PO 02/27/25 13:30 02/28/25 11:00 DC 02/27/25 17:35 20 MG Gabapentin (NEURontin 300 MG CAP) 600 mg BID PO 02/27/25 12:30 03/29/25 12:29 03/01/25 08:33 600 MG Glucagon (Glucagon 1mg Kit) 1 mg AD PRN IM HYPOGLYCEMIA PROTOCOL 02/27/25 13:00 03/29/25 12:59 Insulin Human Regular (humuLIN R 100 UNIT/ML 3ML) INSULIN SLIDING SCAL... ACHS SQ 02/26/25 16:30 03/28/25 16:29 02/28/25 22:04 3 UNIT Labetalol HCl (TRANdate 20MG SYG) 10 mg Q6H PRN IV SBP> 170 02/26/25 15:30 03/28/25 15:29 03/01/25 08:23 10 MG Lactulose (Constulose 20gm/ 30ml Udcup) 20 gm Q6H6 PRN PO CONSTIPATION 02/28/25 14:30 03/30/25 14:29 02/28/25 14:52 20 GM Levofloxacin/ Dextrose 100 ml @ 100 mls/hr Q48H IV 02/26/25 16:30 02/26/25 16:08 DC Lidocaine (Lidoderm Patch 5%) 1 patch Q24H TP 02/27/25 13:00 03/29/25 12:59 02/28/25 12:40 1 PATCH Magnesium Sulfate 50 ml @ 0 mls/hr PROTOCOL IV 02/26/25 15:30 03/28/25 15:29 02/26/25 17:01 25 MLS/HR Meropenem (Merrem 500mg) 500 mg Q12H IVPB 02/26/25 16:30 03/08/25 16:29 03/01/25 04:01 500 MG Ondansetron HCl (zoFRAN 4MG INJ) 4 mg Q6H PRN IVP NAUSEA/VOMITING 02/26/25 16:30 03/28/25 16:29 02/28/25 18:01 4 MG Oxycodone/ Acetaminophen (perCOCET) 1 tab Q6H PRN PO SEVERE PAIN (7-10) 02/27/25 13:00 03/06/25 12:59 Potassium Chloride 100 ml @ 50 mls/hr AD PRN IV POTASSIUM PROTOCOL 02/27/25 13:00 03/29/25 12:59 Sodium Chloride 1,000 ml @ 100 mls/hr Q10H IV 02/26/25 15:30 03/28/25 15:29 03/01/25 05:24 100 MLS/HR Thiamine HCl (Vitamin B-1) 100 mg Q24H IVP 02/26/25 15:30 03/28/25 15:29 02/28/25 14:51 100 MG Venlafaxine HCl (EffEXOR XR 37.5mg CAP) 150 mg DAILY PO 02/28/25 09:00 03/30/25 08:59 03/01/25 08:33 150 MG LABORATORY: [ ] Hematology Labs: Test 03/01/25 07:25 Range/Units White Blood Count 11.5 H 4.8-10.8 K/uL Red Blood Count 3.99 L 4.00-5.50 MIL/uL Hemoglobin 10.0 L 12.0-16.0 g/dL Hematocrit 31.9 L 36-48 % Mean Corpuscular Volume 79.9 79-99 fL Mean Corpuscular Hemoglobin 25.1 L 27.0-33.0 pg Mean Corpuscular Hemoglobin Concent 31.3 L 32.0-36.0 g/dL Red Cell Distribution Width 15.3 11.0-15.5 % Platelet Count 98 L 130-400 K/uL Mean Platelet Volume 11.1 H 7.5-10.5 fL Immature Granulocyte % (Auto) 0.6 0-1 % Neutrophils (%) (Auto) 81.6 H 40.0-77.0 % Lymphocytes (%) (Auto) 8.3 L 21.0-51.0 % Monocytes (%) (Auto) 8.7 3.0-13.0 % Eosinophils (%) (Auto) 0.3 0.0-8.0 % Basophils (%) (Auto) 0.5 0.0-5.0 % Neutrophils # (Auto) 9.4 H 1.8-7.7 K/uL Lymphocytes # (Auto) 1.0 1.0-4.8 K/uL Monocytes # (Auto) 1.0 0.1-1.0 K/uL Eosinophils # (Auto) 0.04 0.00-0.70 K/uL Basophils # (Auto) 0.06 0.00-0.20 K/uL Absolute Immature Granulocyte (auto 0.07 0-1 K/uL Nucleated Red Blood Cells 0.0 0.0-0.19 % Chemistry Labs: Test 03/01/25 07:25 03/01/25 05:24 02/28/25 15:26 02/28/25 05:16 Range/Units Sodium Level 135 L 136-145 mmol/L Potassium Level 3.6 3.5-5.1 mmol/L Chloride Level 103 101-111 mmol/L Carbon Dioxide Level 21 21-32 mmol/L Blood Urea Nitrogen 22 H 7-18 mg/dL Creatinine 2.0 H 0.5-1.0 mg/dL Glomerular Filtration Rate Calc 26 >90 mL/min Random Glucose 158 H 70-105 mg/dL Total Calcium 7.8 L 8.5-10.1 mg/dL Total Bilirubin 0.5 0.2-1.0 mg/dL Aspartate Amino Transf (AST/SGOT) 121 H 10-37 U/L Alanine Aminotransferase (ALT/SGPT) 54 12-78 U/L Alkaline Phosphatase 254 H 50-136 U/L C-Reactive Protein, Quantitative 96.30 H 0.5-3.0 mg/L Total Protein 7.0 6.0-8.3 g/dL Albumin 2.1 L 3.5-5.0 g/dL Whole Blood Glucose 130 H 70-110 MG/DL Lactic Acid Level 1.4 0.8-2.5 mmol/L Iron Level 22 L 50-170 mcg/dL Total Iron Binding Capacity 132 L 250-450 mcg/dL Percent Iron Saturation 16.6 L 22-44 % DIAGNOSTICS / RADIOLOGY: REASON: Lumbar back pain rule out metastasis ORDERING PHYSICIAN: NAKIA LIZ MD PROCEDURE: L SPIN WO - CT LUMBAR SPINE W/O CONTRAST CT LUMBAR SPINE W/O CONTRAST HISTORY: Low back pain COMPARISON: None TECHNIQUE: Multiple sequential axial images of the lumbar spine were obtained including post processing sagittal and coronal reconstruction images. Patient was not given contrast through intravenous route. 3-dimensional reconstruction images were obtained. FINDINGS: Grade 1 anterolisthesis is seen at L4-5 level. Endplate degenerative changes with disc space narrowing at L5-S1 level. There is no loss of vertebral height. Evaluation for disc and cord pathology is limited with CT study. No evidence of fracture or dislocation is seen. IMPRESSION: 1. No fracture is seen. DJD. CT was performed with one or more following dose reduction techniques: automated exposure control, adjustment of the mA and kv according to patient's size, or use of a iterative reconstruction technique. DICTATED BY: DAVID RODRIGUEZ MD DATE: 02/27/25 1533 REASON: hx of colon and bladder cancer, uti, recent cystoscopy, hx of neprhectomy ORDERING PHYSICIAN: JEB HELM MD PROCEDURE: ABD PEL WO - CT ABDOMEN/PELVIS W/O CONTRAST CT ABDOMEN/PELVIS W/O CONTRAST HISTORY: History of colon and bladder cancer COMPARISON: None TECHNIQUE: Multiple sequential axial images of the abdomen and pelvis were obtained from the dome of the diaphragm through symphysis pubis. Patient was not given contrast through intravenous route. Oral contrast was not given. Reconstruction images were not obtained. This is limiting evaluation. FINDINGS: No pleural effusion is seen bilaterally. There is no evidence of parenchymal disease or pulmonary nodule of the visualized lower lungs. Degenerative changes of the thoracolumbar spine are present. The heart is not enlarged. Postcholecystectomy changes are seen. A small hiatal hernia is seen. The study is limited due to lack of oral and IV contrast. The liver, spleen, adrenal glands and pancreas are unremarkable. 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 There may be minimal left hydronephrosis. No evidence of renal stone is seen. Fecal material is seen in the colon. There are normal size retroperitoneal and mesenteric lymph nodes. No ascites is seen. Atherosclerotic changes are present. Pelvic sidewalls are symmetric bilaterally. Deformity is seen of the right pubic ramus may be related to old trauma. Bladder is well distended without wall thickening. IMPRESSION: 1. The study is limited due to lack of oral and IV contrast. The study is limited due to the lack of two-dimensional reconstruction images. Small hiatal hernia is seen. No ascites is seen. Right kidney has been advanced and the minimal left hydronephrosis. CT was performed with one or more following dose reduction techniques: automated exposure control, adjustment of the mA and kv according to patient's size, or use of a iterative reconstruction technique. DICTATED BY: DAVID RODRIGUEZ MD DATE: 02/26/25 1612 REASON: chest pain ORDERING PHYSICIAN: ALISON KIDD DO PROCEDURE: CXR1VW - CHEST 1VW CHEST 1VW HISTORY: Chest pain COMPARISON: 07/17/2003 FINDINGS: A frontal projection of the chest was obtained. No acute pulmonary infiltrates is seen. The heart is normal in size. Prominent interstitial markings are seen. Aortic calcification are seen. Degenerative changes are seen. IMPRESSION: 1. No acute pulmonary infiltrate is seen. DICTATED BY: DAVID RODRIGUEZ MD DATE: 02/26/25 1252 ASSESSMENT: Complicated urinary tract infection, POA Sepsis without shock, POA CELIA on CKD, POA History of right renal nephrectomy, POA Dehydration, POA Normocytic anemia, POA History of bladder cancer, POA Prior history of colon cancer about 20 years ago status post colon resection, POA Hypomagnesemia, POA Hypovolemic hyponatremia, POA Underlying history of hypertension, POA Hyperlipidemia, POA Type 2 diabetes mellitus, POA Obesity, POA History of allergy to penicillin and heparin, POA PLAN: Labs, diagnostic, radiologic exams reviewed and interpreted by myself and supervising physician. We have reviewed external records in detail Require close monitoring of renal function and electrolytes Order CBC, CMP, and electrolytes in am Continue with antibiotics Renal diabetic diet BiPAP as necessary, for respiratory distress Monitor blood pressure adjust medication doses as needed Avoid hypotensive episodes May use Dilaudid 0.5 mg IV every 6 hours as needed for severe pain Monitor blood sugars Strict intake, output, and daily weight should be monitored Please renally adjust medications Avoid nephrotoxic and nonsteroidal drugs Avoid contrast if possible Will continue to monitor renal function, anemia, electrolytes Treatment plan discussed with patient Questions were answered We have discussed with the other team physicians in detail about the care plan We will continue to monitor the patient closely ATTESTATION BY PHYSICIAN I have seen and examined the patient. I reviewed the documentation, medical decision making, and treatment plan as noted by the mid-level provider above. I agree with the findings and plan of care. AMADOR NEAL MD, [facility] Mar 01, 2025 10:47
[2025-03-01] MEDS ORDERED: IRON sUCROse COMPLEX 100 MG/5 ML VIAL IVP SCH (14:30)
[2025-03-01] MEDS ORDERED: COMPOUND IV MISC 1 EACH IVSOLN MISC PRN (14:30)
[2025-03-01] MEDS ORDERED: COMPOUND IV REFRIGERATED 1 EACH IVSOLN MISC PRN (14:30)
[2025-03-01] MEDS: IRON SUCROSE COMPLEX 300 MG+/NS 250ML IV SCH (14:49)
--- NOTE | 2025-03-01 17:28 | PN ---
[facility] PROGRESS NOTE Date of Service: Mar 01, 2025 Time of Service: 17:21 SUBJECTIVE: [ ] Date of service: 02/26/2025, patient was seen in ER room 17 74-year-old female with underlying history of hypertension, hyperlipidemia, type 2 diabetes mellitus, obesity, history of bladder cancer followed at [facility], prior history of colon cancer who presented to the ER for further evaluation of generalized weakness, poor oral intake, malaise and asthenia. Symptoms have been ongoing for the past 3-4 days where patient reports having poor oral intake and myalgias. Patient reports that on 02/18/25, she had a routine surveillance cystoscopy done in [facility], and since then she has been feeling unwell. Patient denies any headache or focal weakness of upper or lower extremities. She has a history of bladder cancer several years ago for which she underwent chemotherapy as well as surgery. 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 Patient has a history of right renal nephrectomy. On presentation to the hospital, patient was noted to be afebrile with T-max of 99.3, tachycardic with heart rate in the 100s, blood pressure of 154/72. Labs on presentation showed WBC count of 6400, hemoglobin of 10, platelet [place] 1100[address]. BMP remarkable for sodium 132, potassium 3.7, BUN of 20, creatinine 2.1, magnesium 1.5, procalcitonin was elevated at 3.19 with AST of 79, ALT of 63, alkaline phosphatase of 187. Urinalysis showed cloudy urine with pyuria, bacteriuria. Patient will be admitted for further management of urinary tract infection and dehydration. Patient does have underlying history of penicillin allergy with renal failure. Patient will be started on broad-spectrum antibiotics with IV Merrem venom and consultation with Infectious Disease will be requested. We will see how patient progresses closely. February 27, 2025 74-year-old female remains admitted for generalized weakness and poor oral intake, initially presenting on February 26, 2025. Patient reports slight improvement in energy today but still feels overall weak and unable to ambulate independently. She has been able to take oral fluids and a light meal, which she tolerated well. She continues to complain of significant lower back pain (rated 7/10), described as dull, aching, non-radiating, worsened with movement. Denies saddle anesthesia, bowel or bladder incontinence. No current fever, chills, chest pain, palpitations, nausea, or vomiting. Denies any new neurological symptoms. Patient is aware that urine analysis and preliminary culture was positive and is currently receiving IV meropenem. She is agreeable to physical therapy assessment. No new urinary complaints. Mild improvement in mental clarity and fatigue. 02/28/25 74-year-old female with a complex medical history remains admitted for complicated UTI, CELIA on CKD, and generalized weakness. Today she is febrile (Tmax 100.8F) and tachycardic (HR 766657 bpm). She continues to feel weak but is tolerating PO fluids and food. Back pain is mild and controlled with Tylenol. No new shortness of breath, chest pain, or focal neurological symptoms. Patient has been informed that her urine culture grew gram-negative rods; sensitivities are pending. She remains on renal-dosed IV meropenem. Reports no nausea, vomiting, or new urinary symptoms. Oriented and cooperative. 03/01/25 PATIENT WAS EXAMINED AT BEDSIDE INITIALLY SHE WAS SLEEPY IN THE MORNING WHEN SEEN DURING ROUNDS BUT SHE WAS RE-EVALUATED2 HOURS LATER AND IS AWAKE ALERT AND ABLE TO ACTIVELY PARTICIPATE IN PHYSICAL THERAPY. SHE CONTINUES TO REPORT FATIGUE AND SUBJECTIVE FEVERS. SHE SHE DENIES CHEST PAIN SHORTNESS OF BREATH OR NEW ABDOMINAL PAIN. APPETITE REMAINS POOR A TOLERATING SMALL AMOUNTS OF ORAL INTAKE. SHE DENIES NAUSEA VOMITING. SHE IS AWARE OF THE POSITIVE URINE CULTURE AND IS RECEIVING IV MEROPENEM. ECHO HAS BEEN ORDERED, RESULTS PENDING. NO SIGNS OF NEW BLEEDING. DENIES CONFUSION OR FOCAL WEAKNESS. URINE OUTPUT HAS IMPROVED BUT STILL REMAINS ON THE LOWER SIDE. REVIEW OF SYSTEMS CONSTITUTIONAL: Fevers, chills, asthenia malaise NEUROLOGICAL: Denies headache, amaurosis fugax, motor weakness, sensory deficit, vertigo/spinning sensation, gait abnormalities, or tremors. ENT: No hearing loss, otalgia, otorrhea, rhinitis, rhinorrhea, hoarseness, or sore throat. CARDIOVASCULAR: Denies any exertional angina, dyspnea on exertion, orthopnea, paroxysmal nocturnal dyspnea, palpitations, life-threatening arrhythmias, claudication. PULMONARY: Denies any shortness of breath, cough, phlegm/sputum, hemoptysis, pleuritic chest pain. SLEEP: Denies morning headaches, daytime somnolence or napping. Denies difficulty falling asleep, staying asleep, waking from sleep. Denies knowledge of snoring. GASTROINTESTINAL: Poor oral intake with nausea GENITOURINARY: Denies frequency, urgency, nocturia, hematuria or incontinence (Storage/Irritative symptoms.) Low urinary stream, straining to void, urinary intermittency or hesitancy, splitting of the voiding stream, terminal dribbling. ENDOCRINOLOGIC: Denies polyuria, polydipsia, polyphagia or heat/cold intolerances. HEMATOLOGIC: Denies thrombophilia/previous clots, or coagulopathy/bleeding disorders. ONCOLOGIC: Denies personal history of malignancy. DERMATOLOGIC: Denies rashes or pruritus. PSYCHIATRIC: Denies any suicidal or homicidal ideation. Denies hallucinations. PHYSICAL EXAM GENERAL APPEARANCE: The patient is awake, alert, and oriented, in no acute cardiopulmonary distress. Appears frail and debilitated NEUROLOGICAL: Cranial nerves II-XII grossly intact. Motor is 5/5 in bilateral upper and lower extremities proximal to distal. No sensory deficits. HEENT: Face is symmetric. Pupils are equal and reactive. Extraocular movements are intact. NECK: Supple. No JVD. No thyromegaly. No submental, submandibular, pre- /postauricular, occipital or supraclavicular lymphadenopathy. CHEST: Normal chest expansion. No Telemetry. LUNGS: Absence of any rales, rhonchi or any wheezing. CARDIOVASCULAR: Regular. S1 and S2 normal. No appreciable rubs, murmurs or gallops. ABDOMEN: Soft, nontender, and nondistended. There is no rebound, voluntary guarding, or rigidity. : Deferred. No Kent. EXTREMITIES: Non-edematous and not cyanotic. No clubbing. Good capillary refill. SKIN: No skin breakdown. Vital Signs (last 8hr) Date Time Temp Pulse Resp B/P (MAP) Pulse Ox O2 Delivery O2 Flow Rate FiO2 03/01/25 15:38 98.8 110 18 132/68 96 Room Air 03/01/25 11:36 98.8 110 19 133/68 96 Room Air 03/01/25 10:38 96 Room Air* 0 21 LABS: Laboratory: Test 03/01/25 15:49 4/5/25 07:25 02/28/25 15:26 02/28/25 05:16 Range/Units Whole Blood Glucose 197 H 70-110 MG/DL White Blood Count 11.5 H 4.8-10.8 K/uL Red Blood Count 3.99 L 4.00-5.50 MIL/uL Hemoglobin 10.0 L 12.0-16.0 g/dL Hematocrit 31.9 L 36-48 % Mean Corpuscular Volume 79.9 79-99 fL Mean Corpuscular Hemoglobin 25.1 L 27.0-33.0 pg Mean Corpuscular Hemoglobin Concent 31.3 L 32.0-36.0 g/dL Red Cell Distribution Width 15.3 11.0-15.5 % Platelet Count 98 L 130-400 K/uL Mean Platelet Volume 11.1 H 7.5-10.5 fL Immature Granulocyte % (Auto) 0.6 0-1 % Neutrophils (%) (Auto) 81.6 H 40.0-77.0 % Lymphocytes (%) (Auto) 8.3 L 21.0-51.0 % Monocytes (%) (Auto) 8.7 3.0-13.0 % Eosinophils (%) (Auto) 0.3 0.0-8.0 % Basophils (%) (Auto) 0.5 0.0-5.0 % Neutrophils # (Auto) 9.4 H 1.8-7.7 K/uL Lymphocytes # (Auto) 1.0 1.0-4.8 K/uL Monocytes # (Auto) 1.0 0.1-1.0 K/uL Eosinophils # (Auto) 0.04 0.00-0.70 K/uL Basophils # (Auto) 0.06 0.00-0.20 K/uL Absolute Immature Granulocyte (auto 0.07 0-1 K/uL Nucleated Red Blood Cells 0.0 0.0-0.19 % Sodium Level 135 L 136-145 mmol/L Potassium Level 3.6 3.5-5.1 mmol/L Chloride Level 103 101-111 mmol/L Carbon Dioxide Level 21 21-32 mmol/L Blood Urea Nitrogen 22 H 7-18 mg/dL Creatinine 2.0 H 0.5-1.0 mg/dL Glomerular Filtration Rate Calc 26 >90 mL/min Random Glucose 158 H 70-105 mg/dL Total Calcium 7.8 L 8.5-10.1 mg/dL Total Bilirubin 0.5 0.2-1.0 mg/dL Aspartate Amino Transf (AST/SGOT) 121 H 10-37 U/L Alanine Aminotransferase (ALT/SGPT) 54 12-78 U/L Alkaline Phosphatase 254 H 50-136 U/L C-Reactive Protein, Quantitative 96.30 H 0.5-3.0 mg/L Total Protein 7.0 6.0-8.3 g/dL Albumin 2.1 L 3.5-5.0 g/dL Lactic Acid Level 1.4 0.8-2.5 mmol/L Iron Level 22 L 50-170 mcg/dL Total Iron Binding Capacity 132 L 250-450 mcg/dL Percent Iron Saturation 16.6 L 22-44 % Current Medications Medications (Trade) Dose Ordered Sig/Sonja Route PRN Reason Start Time Stop Time Status Last Admin Dose Admin Acetaminophen (TYLenol 325MG TAB) 650 mg Q6H PRN PO MILD PAIN (1-3) 02/26/25 16:30 03/28/25 16:29 03/01/25 00:01 650 MG Amlodipine Besylate (NorvASC 5MG TAB) 5 mg Q12H PO 02/26/25 15:30 02/27/25 20:24 DC 02/27/25 17:36 5 MG Amlodipine Besylate (NorvASC 5MG TAB) 5 mg Q12H PO 02/28/25 09:00 03/30/25 08:59 03/01/25 08:33 5 MG Ceftriaxone Sodium (ROCEphine 1G INJ) 1 gm Q24H IVPB 02/26/25 14:30 02/26/25 14:38 DC Dextrose (D50w) 50 ml AD PRN IV HYPOGLYCEMIA PROTOCOL 02/27/25 13:00 03/29/25 12:59 Famotidine (Pepcid 20mg Tab) 20 mg ONCE PO 02/27/25 13:30 02/28/25 11:00 DC 02/27/25 17:35 20 MG Gabapentin (NEURontin 300 MG CAP) 600 mg BID PO 02/27/25 12:30 03/29/25 12:29 03/01/25 08:33 600 MG Glucagon (Glucagon 1mg Kit) 1 mg AD PRN IM HYPOGLYCEMIA PROTOCOL 02/27/25 13:00 03/29/25 12:59 Insulin Human Regular (humuLIN R 100 UNIT/ML 3ML) INSULIN SLIDING SCAL... ACHS SQ 02/26/25 16:30 03/28/25 16:29 03/01/25 17:08 2 UNIT Iron Sucrose (VenoFER) 300 mg Q24H IVP 03/01/25 14:30 03/01/25 14:24 DC Iron Sucrose 300 mg/Sodium Chloride 250 ml @ 83 mls/hr Q24H IV 03/01/25 14:30 03/02/25 17:31 03/01/25 14:49 83 MLS/HR Labetalol HCl (TRANdate 20MG SYG) 10 mg Q6H PRN IV SBP> 170 02/26/25 15:30 03/28/25 15:29 03/01/25 08:23 10 MG Lactulose (Constulose 20gm/ 30ml Udcup) 20 gm Q6H6 PRN PO CONSTIPATION 02/28/25 14:30 03/30/25 14:29 02/28/25 14:52 20 GM Levofloxacin/ Dextrose 100 ml @ 100 mls/hr Q48H IV 02/26/25 16:30 02/26/25 16:08 DC Lidocaine (Lidoderm Patch 5%) 1 patch Q24H TP 02/27/25 13:00 03/29/25 12:59 03/01/25 13:22 1 PATCH Magnesium Sulfate 50 ml @ 0 mls/hr PROTOCOL IV 02/26/25 15:30 03/28/25 15:29 02/26/25 17:01 25 MLS/HR Meropenem (Merrem 500mg) 500 mg Q12H IVPB 02/26/25 16:30 03/08/25 16:29 03/01/25 04:01 500 MG Ondansetron HCl (zoFRAN 4MG INJ) 4 mg Q6H PRN IVP NAUSEA/VOMITING 02/26/25 16:30 03/28/25 16:29 02/28/25 18:01 4 MG Oxycodone/ Acetaminophen (perCOCET) 1 tab Q6H PRN PO SEVERE PAIN (7-10) 02/27/25 13:00 03/06/25 12:59 Potassium Chloride 100 ml @ 50 mls/hr AD PRN IV POTASSIUM PROTOCOL 02/27/25 13:00 03/29/25 12:59 Sodium Chloride 1,000 ml @ 100 mls/hr Q10H IV 02/26/25 15:30 03/28/25 15:29 03/01/25 13:24 100 MLS/HR Thiamine HCl (Vitamin B-1) 100 mg Q24H IVP 02/26/25 15:30 03/28/25 15:29 03/01/25 16:11 100 MG Venlafaxine HCl (EffEXOR XR 37.5mg CAP) 150 mg DAILY PO 02/28/25 09:00 03/30/25 08:59 03/01/25 08:33 150 MG Vitamin B Complex/ Vit C/Folic Acid (Nephrovite Tablet) 1 cap DAILY PO 03/02/25 09:00 04/01/25 08:59 DIAGNOSTICS / RADIOLOGY: [ ] RUN DATE: 03/01/25 [facility] PAGE 1 RUN TIME: [phone] [address], [place] [address] Department of Laboratories CLIA # [id number] [employer] Manager: Solomon Mayo DO Specimen Report PATIENT: DANIEL SOLIMAN ACCT: [id number] LOC: [facility] U: [id number] AGE/SX: 74/F ROOM: 316 RE02/26/[address]: JEB HELM MD : 1950 BED: 1 DIS: STATUS: ADM IN TLOC: SPEC: [id number] LIZ: 02/26/25 STATUS: RES REQ: [id number] RECD: 02/27/[address]: ALISON KIDD DO SOURCE: URINE CATH ENTR: 02/27/[address]: SELF,REFERRAL SPDESC: CATHERIZED ORDERED: AERO ID & SENS Procedure Result Renu Date-Time ----- ------- AEROBIC ID & SENSITIVITIES Preliminary 03/01/25-700 [facility] COLONY DESCRIPTION: DAY 1: COLONY COUNT: >100,000 CFU/ML GRAM NEGATIVE RODS IDENTIFICATION AND SENSITIVITY TO FOLLOW DAY 2: SLOW-GROWER; RESULTS PENDING Test(s) performed by: [facility] [address] [place] [address] @ [facility] Test Performed at: [facility] [address] [place], [place] Medical Water Well Driller: Gene Carbajal D.O. PATIENT: DANIEL SOLIMAN MR#: [id number] : 1950 SEX: F AGE: 74 LOCATION: 3CH ORDER 1305 STATUS: ADM IN REPORT#: [id number] SERVICE 1255 REASON: Lumbar back pain rule out metastasis ORDERING PHYSICIAN: NAKIA LIZ MD PROCEDURE: L SPIN WO - CT LUMBAR SPINE W/O CONTRAST CT LUMBAR SPINE W/O CONTRAST HISTORY: Low back pain COMPARISON: None TECHNIQUE: Multiple sequential axial images of the lumbar spine were obtained including post processing sagittal and coronal reconstruction images. Patient was not given contrast through intravenous route. 3-dimensional reconstruction images were obtained. FINDINGS: Grade 1 anterolisthesis is seen at L4-5 level. Endplate degenerative changes with disc space narrowing at L5-S1 level. There is no loss of vertebral height. Evaluation for disc and cord pathology is limited with CT study. No evidence of fracture or dislocation is seen. IMPRESSION: 1. No fracture is seen. DJD. CT was performed with one or more following dose reduction techniques: automated exposure control, adjustment of the mA and kv according to patient's size, or use of a iterative reconstruction technique. DICTATED BY: DAVID RODRIGUEZ MD DATE: 02/27/25 1533 ELECTRONICALLY SIGNED BY: DAVID RODRIGUEZ MD DATE: 02/27/25 1544 ASSESSMENT: Complicated urinary tract infection, POA Sepsis without shock, POA CELIA on CKD, POA History of right renal nephrectomy, POA Dehydration, POA Normocytic anemia, POA History of bladder cancer, POA Prior history of colon cancer about 20 years ago status post colon resection, POA Hypomagnesemia, POA Hypovolemic hyponatremia, POA Underlying history of hypertension, POA Hyperlipidemia, POA Type 2 diabetes mellitus, POA Obesity, POA History of allergy to penicillin and heparin, POA PLAN: BC COUNT INCREASED TO 11.5 FROM 6.4, HEMOGLOBIN IS AT 10.0 LOW NEUTROPHILS INCREASED TO 81.6%, ABSOLUTE NEUTROPHILS INCREASED TO 9.4 SODIUM IS135 LOW, BUN22 , CREATININE 2.0 STABLE, [id number] HIGH ALT54 MILDLY INCREASED, ALKALINE PHOSPHATASE 2INCREASED FROM 171 YESTERDAY, CRP ELEVATED AT 96.3, URINE CULTURE MORE THAN [id number] COLONY-FORMING UNITS GRAM-NEGATIVE RODS, SUSCEPTIBILITY PENDING. BLOOD CULTURES NO GROWTH AT DAYS, ECHO RESULTS PENDING. CONTINUE IV MEROPENEM, REASSESS AFTER SUSCEPTIBILITY RETURNS. ID TO RE-EVALUATE ANTIBIOTIC COVERAGE AFTER CULTURE FINALIZED. ELEVATED AST, ALKALINE PHOSPHATASE POSSIBLY ANTIBIOTIC INDUCED OR INFECTION RELATED NO SIGNS OF OBSTRUCTION OR PRIOR CT. MONITOR LFTS DAILY IF WORSENING CONSIDER ULTRASOUND ABDOMEN. Patient will be admitted to medical-surgical floor under telemetry monitoring We will request consultation with Infectious Disease and Nephrology We will request consultation with Physical therapy for patient mobilization Anticipate hospitalization for at least 48-72 hours, we will follow up patient closely All labs will be repeated in the morning Medications were renally dose, avoid any NSAIDs, avoid any nephrotoxic medications Complicated UTI (POA): Gram-negative bacteriuria with persistent fever and tachycardia Awaiting sensitivities; on renal-dosed meropenem Kent-associated, high risk of upper tract involvement * Started on Meropenem 500 mg IV Q12H, renal-dosed ID to review for source control and antibiotic narrowing CRP trended (today and tomorrow) Monitor lactate, CRP, WBC, and urine output closely Monitor fever pattern, repeat BCx if febrile after 4872h * Continue Kent care, monitor urine output 2. Acute Kidney Injury on CKD (Stage 3b, POA): * Baseline Cr 1.5, now 2.1 Continue IV NS @ 100 mL/hr Daily BMP, monitor Cr and urine output Nephrology to review renal dosing, UOP status * Avoid nephrotoxic agents (NSAIDs, IV contrast) CVS Echocardiogram ordered to assess for potential endocarditis or structural cause of persistent fever Monitor HR trend (now [id number]) 3. Dehydration, Hypovolemic Hyponatremia (POA): * Mild hyponatremia (Na 134), clinically volume-depleted * Continue IVF (NS @100 mL/hr) * Monitor daily BMP, urine output 4. Anemia Normocytic Hypochromic (POA): * Hb 9.6, MCV 78.9; likely ACD + iron deficiency * Continue ferrous sulfate * Monitor retic count, iron panel, haptoglobin, LDH 5. Severe Lower Back Pain : * Lidocaine patch to back PRN * Percocet 5/325 mg PO Q6H PRN for severe pain * Avoid NSAIDs due to renal impairment * PT eval ordered for early mobilization 6. Hypoalbuminemia, Malnutrition (POA): * Albumin 2.1 * Nutritional support encouraged * Nutrition consult pending 7. DM2 Uncontrolled (POA): * FSBS 150, down from 258 * Continue sliding scale insulin * Hold oral agents 8. Hypertension (POA): * Resume Amlodipine 5 mg PO BID * Labetalol 10 mg IV PRN Q6H for SBP >160 9. History of Colon & Bladder Cancer (POA): * Stable, surveillance ongoing * Recent cystoscopy reportedly normal * Coordinate with outpatient oncology 10. 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 I reviewed the documentation, medical decision making, and treatment plan as noted by the resident above. I agree with the findings and plan of care. Jean-Pierre Clements MD, RAGHAVA R MD Mar 01, 2025 17:27
--- NOTE | 2025-03-01 19:07 | PN ---
INFECTIOUS DISEASE PROGRESS NOTE Date of Service: Mar 01, 2025 SUBJECTIVE: This is a 74-year-old female patient who was seen today at bedside in room 316. Patient is resting comfortably in bed. The preliminary urine culture results growing Gram-negative rods. We will follow up on the final cultures. Patient had a fever of 101.5 last night, current temperature however is 98.2. The WBC is slightly elevated at 11.5. Patient will continue on Meropenem. PHYSICAL EXAM EYES: Anicteric. Pupils equal and reactive. HENT: No oral thrush seen, moist Oral mucosa NECK: Supple, no JVD or thyromegaly. LUNGS: Good air entry. No rales, no rhonchi. CARDIOVASCULAR: S1, S2 regular. No murmur heard. ABDOMEN: Soft, non tender, bowel sounds present, no organomegaly. Obese. CENTRAL NERVOUS SYSTEM: Awake, alert, oriented x 3. SKIN: No rashes, no swelling. LYMPHATICS: No peripheral lymphadenopathy MUSCULOSKELETAL: No joint swelling, erythema or tenderness. EXTREMITIES: No cyanosis or clubbing. BACK: No deformity, no pressure ulcer. GENITOURINARY: No dysuria or hematuria. Vital Sign (Last 12 Hours) 03/01/25 03/01/25 03/01/25 03/01/25 07:43 08:23 10:38 11:36 Temp 98.2 98.8 Pulse 116 116 110 Resp 19 19 B/P (MAP) 171/80 171/80 133/68 Pulse Ox 96 96 96 O2 Delivery Room Air Room Air* Room Air O2 Flow Rate 0 FiO2 21 03/01/25 15:38 Temp 98.8 Pulse 110 Resp 18 B/P (MAP) 132/68 Pulse Ox 96 O2 Delivery Room Air Intake & Output (last 24hrs) 02/28/25 02/28/25 03/01/25 14:59 22:59 06:59 Intake Total 550 ml 250.0 ml 1300.0 ml Output Total 400 ml 900 ml Balance 550 ml -150.0 ml 400.0 ml LABS: Laboratory: Test 03/01/25 15:49 03/01/25 07:25 02/28/25 15:26 02/28/25 05:16 Range/Units Whole Blood Glucose 197 H 70-110 MG/DL White Blood Count 11.5 H 4.8-10.8 K/uL Red Blood Count 3.99 L 4.00-5.50 MIL/uL Hemoglobin 10.0 L 12.0-16.0 g/dL Hematocrit 31.9 L 36-48 % Mean Corpuscular Volume 79.9 79-99 fL Mean Corpuscular Hemoglobin 25.1 L 27.0-33.0 pg Mean Corpuscular Hemoglobin Concent 31.3 L 32.0-36.0 g/dL Red Cell Distribution Width 15.3 11.0-15.5 % Platelet Count 98 L 130-400 K/uL Mean Platelet Volume 11.1 H 7.5-10.5 fL Immature Granulocyte % (Auto) 0.6 0-1 % Neutrophils (%) (Auto) 81.6 H 40.0-77.0 % Lymphocytes (%) (Auto) 8.3 L 21.0-51.0 % Monocytes (%) (Auto) 8.7 3.0-13.0 % Eosinophils (%) (Auto) 0.3 0.0-8.0 % Basophils (%) (Auto) 0.5 0.0-5.0 % Neutrophils # (Auto) 9.4 H 1.8-7.7 K/uL Lymphocytes # (Auto) 1.0 1.0-4.8 K/uL Monocytes # (Auto) 1.0 0.1-1.0 K/uL Eosinophils # (Auto) 0.04 0.00-0.70 K/uL Basophils # (Auto) 0.06 0.00-0.20 K/uL Absolute Immature Granulocyte (auto 0.07 0-1 K/uL Nucleated Red Blood Cells 0.0 0.0-0.19 % Sodium Level 135 L 136-145 mmol/L Potassium Level 3.6 3.5-5.1 mmol/L Chloride Level 103 101-111 mmol/L Carbon Dioxide Level 21 21-32 mmol/L Blood Urea Nitrogen 22 H 7-18 mg/dL Creatinine 2.0 H 0.5-1.0 mg/dL Glomerular Filtration Rate Calc 26 >90 mL/min Random Glucose 158 H 70-105 mg/dL Total Calcium 7.8 L 8.5-10.1 mg/dL Total Bilirubin 0.5 0.2-1.0 mg/dL Aspartate Amino Transf (AST/SGOT) 121 H 10-37 U/L Alanine Aminotransferase (ALT/SGPT) 54 12-78 U/L Alkaline Phosphatase 254 H 50-136 U/L C-Reactive Protein, Quantitative 96.30 H 0.5-3.0 mg/L Total Protein 7.0 6.0-8.3 g/dL Albumin 2.1 L 3.5-5.0 g/dL Lactic Acid Level 1.4 0.8-2.5 mmol/L Iron Level 22 L 50-170 mcg/dL Total Iron Binding Capacity 132 L 250-450 mcg/dL Percent Iron Saturation 16.6 L 22-44 % DIAGNOSTICS / RADIOLOGY: SPEC: [id number] LIZ: 02/26/25 STATUS: RES REQ: [id number] RECD: 02/27/[address]: ALISON KIDD DO SOURCE: URINE CATH ENTR: 02/27/[address]: SELF,REFERRAL SPDC: CATHERIZED ORDERED: AERO ID & SENS Procedure Result Renu Date-Time AEROBIC ID & SENSITIVITIES Preliminary 02/28/25-804 [facility] COLONY DESCRIPTION: DAY 1: COLONY COUNT: >100,000 CFU/ML GRAM NEGATIVE RODS IDENTIFICATION AND SENSITIVITY TO FOLLOW Test(s) performed by: [facility] [address] [place] [address] ASSESSMENT: Urinary tract infection. Acute renal failure. Leukocytosis. Morbid obesity Diabetes mellitus Dehydration Iron-deficiency Anemia PLAN: Continue meropenem. We will follow up on the final cultures results. Continue diabetic medication. Venofer being administer. Will monitor electrolytes Continue fall precaution This case was reviewed and discussed with my supervising physician and the above assessment and plan was formulated and agreed upon. ATTESTATION BY PHYSICIAN I have seen and examined the patient. I reviewed the documentation, medical decision making, and treatment plan as noted by the mid-level provider above. I agree with the findings and plan of care. DEBBIE THOMSON MD, MIRTA L [facility] Mar 01, 2025 19:07
--- NOTE | 2025-03-01 23:36 | HMCSR ---
APPROVED REPORT EXAM: Two-dimensional and M-mode echocardiogram with Doppler and color Doppler. INDICATION ICD: Evaluate for structural heart diseases/endocarditis 2D Dimensions RVDd3.6 cmLVEF(%)26.5 (>50%)LVED Vol(simp.)86.3 mL IVSd1.7 (0.7-1.1cm)FS(%)12 %LVES Vol(simp.)41.6 mL LVDd2.7 (3.8-5.6cm)LA (2D)3.4 (1.6-4.0cm)LVEF(%, simp.)52 % PWd1.8 (0.7-1.1cm)Ao Root(2D)2.9 (2.0-3.7cm)LA ESV INDEX (BP)30.50 mL/m2 LVDs2.4 (2.5-4.0cm)LVOT diam2.1 (1.8-2.4cm) Deformation Strain Apical 4-14.0 % Apical 2-14.0 % Apical 3-15.0 % Global Strain-15.0 % M-Mode Dimensions EPSS0.5 cm LA (MM)5.1 (1.6-4.0cm) Ao Root(MM)3.0 (2.0-3.7cm) Aortic Valve AoV Vmax3.2 m/Maribeth Peak GR41.1 mmHgLVOT Vmax1.1 m/s AoV VTI0.5 mAo Mean GR22.5 mmHgLVOT VTI0.20 m OLAF (VMAX)1.4 cm2AVA (VTI) 1.4 cm2 Mitral Valve MV E Vmax67.0 cm/sDECEL Time94 ms MV A Pwqp599.5 cm/sP 1/2 T36 ms E/A ratio0.6MVA (PHT)6.1 cm2 TDI E/E' Medial9.7 Pulmonary Valve PV Vmax1.7 m/s Tricuspid Valve TR Vmax2.9 m/sRVSP27.8 mmHg TR Peak GR38.4 mmHg Left Ventricle The left ventricle is normal size. No regional wall motion abnormalities noted. Moderate concentric l eft ventricular hypertrophy. Left ventricular systolic function is low-normal, estimated LVEF is 50-5 5%. Stage I diastolic dysfunction. Right Ventricle The right ventricle is normal size. Right ventricle systolic function is grossly normal. Atria The left atrium size is normal. The right atrium size is normal. Aortic Valve Aortic valve is trileaflet. The leaflets are thickened and calcified. Mild aortic regurgitation. Mode rate aortic stenosis, peak velocity 3.3 m/s, mean gradient 24 mmHg, OLAF 1.4 cm. Mitral Valve The mitral valve is normal in structure. The leaflets are mildly thickened and calcified. Trace sanam l regurgitation. There is no mitral valve stenosis. Tricuspid Valve The tricuspid valve is normal in structure. Moderate tricuspid regurgitation. RVSP is 38 mmHg. Pulmonic Valve Pulmonic valve is not well visualized. Great Vessels The aortic root is normal in size. Due to poor image quality, the IVC could not be assessed. Pericardium There is no pericardial effusion. Conclusion Moderate concentric left ventricular hypertrophy. No regional wall motion abnormalities noted. Left ventricular systolic function is low-normal, estimated LVEF is 50-55%. Stage I diastolic dysfunction. Moderate aortic stenosis, peak velocity 3.3 m/s, mean gradient 24 mmHg, OLAF 1.4 cm. Mild aortic regurgitation. Trace mitral regurgitation. Moderate tricuspid regurgitation. RVSP is 38 mmHg. There is no pericardial effusion.
[2025-03-02] VITALS (8 sets, daily range): BP systolic 125–153; BP diastolic 50–73; PULSE 96–104; RESP 16–18; TEMP 98.2–98.8; O2SAT 94–95
[2025-03-02 05:30] LABS: BASOPHILS # (AUTO) 0.04 K/uL (0.00-0.20); BASOPHILS % (AUTO) 0.4 % (0.0-5.0); EOSINOPHILS # (AUTO) 0.08 K/uL (0.00-0.70); EOSINOPHILS % (AUTO) 0.7 % (0.0-8.0); IMMATURE GRANULOCYTE ABSOLUTE 0.09 K/uL (0-1); LYMPHOCYTES # (AUTO) 1.2 K/uL (1.0-4.8); LYMPHOCYTES % (AUTO) 10.8 % (21.0-51.0); MEAN CORPUSCULAR HEMOGLOBIN 25.1 pg (27.0-33.0); MEAN CORPUSCULAR HGB CONC 31.9 g/dL (32.0-36.0); MEAN CORPUSCULAR VOLUME 78.7 fL (79-99); MONOCYTES # (AUTO) 1.1 K/uL (0.1-1.0); MONOCYTES % (AUTO) 9.9 % (3.0-13.0); NEUTROPHILS # (AUTO) 8.4 K/uL (1.8-7.7); NEUTROPHILS % (AUTO) 77.4 % (40.0-77.0); PLATELET COUNT (AUTO) 108 K/uL (130-400); RED BLOOD CELL COUNT(AUTO) 3.43 MIL/uL (4.00-5.50); RED CELL DISTRIBUTION WIDTH 15.3 % (11.0-15.5); WHITE BLOOD COUNT (AUTO) 10.8 K/uL (4.8-10.8)
[2025-03-02 05:44] LABS: POTASSIUM 3.7 mmol/L (3.5-5.1)
[2025-03-02 05:49] LABS: ALBUMIN 1.7 g/dL (3.5-5.0); BILIRUBIN,TOTAL 0.4 mg/dL (0.2-1.0); CREATININE 1.9 mg/dL (0.5-1.0); MAGNESIUM 1.6 mg/dL (1.80-2.40); PHOSPHORUS 3.3 mg/dL (2.5-4.9)
[2025-03-02] MEDS: Vitamin B Complex/Vit C/Folic Acid PO SCH (08:51)
--- NOTE | 2025-03-02 08:55 | NUR ---
Dressing change The patient received her morning meds as well a PRN PO Narco for pain. The dressing around the ARACELI drain is soaked with serous fluids. This automobile service writer removed the dressing and replaced with a new one. The patient complained of severe pain and jumped before this automobile service writer had even attempted to remove the dressing. This is a behavior that the patient had exhibited before and this automobile service writer had been able to reassure her enough to complete the assessment and dressing change but she was inconsolable this time. The dressing was changed and the patient was reassured that she will be cared for for any of her needs. The call shore was left within reach and she remained sitting in a chair.
[2025-03-02] MEDS: oxyCODONE/aceTAMIN 5/325MG TAB PO PRN (13:24)
--- NOTE | 2025-03-02 14:52 | PN ---
NEPHROLOGY PROGRESS NOTE Date/Time Patient Seen: Mar 02, 2025 Reason for Consultation: 14:51 SUBJECTIVE: This is a 74-year-old female with history of known bladder cancer. She initially presented to the hospital with acute on chronic renal dysfunction. The patient was found to have underlying pyuria and was started on broad- spectrum IV antibiotics. Culture results were all noted. She continues to have underlying fevers Patient remains on the broad-spectrum IV antibiotics. The patient's creatinine has remained fairly stable. Urine output has been adequate and we will continue to follow closely. The patient does have significant anemia. She will be started on IV iron while in the hospital Renal function remained stable Electrolytes are stable. She continues on IV antibiotics Urine output was noted. She was seen in the medical floor, in no acute distress REVIEW OF SYSTEMS: GENERAL: Negative for any nausea, vomiting, fevers, chills, or weight loss. NEUROLOGIC: Negative for any blurry vision, blind spots, double vision, facial asymmetry, dysphagia, dysarthria, hemiparesis, hemisensory deficits, vertigo, ataxia. HEENT: Negative for any head trauma, neck trauma, neck stiffness, photophobia, phonophobia, sinusitis, rhinitis. CARDIAC: Negative for any chest pain, dyspnea on exertion, paroxysmal nocturnal dyspnea, peripheral edema. PULMONARY: Negative for any shortness of breath, wheezing, COPD, or TB exposure. GASTROINTESTINAL: Negative for any abdominal pain, nausea, vomiting, bright red blood per rectum, melena. GENITOURINARY: Negative for any dysuria, hematuria, incontinence. INTEGUMENTARY: Negative for any rashes, cuts, insect bites. RHEUMATOLOGIC: Negative for any joint pains, photosensitive rashes, history of vasculitis or kidney problems. HEMATOLOGIC: Negative for any abnormal bruising, frequent infections or bleeding. Vital Signs (last 8hr) Date Time Temp Pulse Resp B/P (MAP) Pulse Ox O2 Delivery O2 Flow Rate FiO2 03/01/25 10:38 96 Room Air* 0 21 03/01/25 08:23 116 171/80 03/01/25 07:43 98.2 116 19 171/80 96 Room Air 03/01/25 04:00 98.2 104 18 151/74 98 Room Air PHYSICAL EXAM: GENERAL: Alert and oriented x 3. No acute distress. Well-nourished. EYES: EOMI. Anicteric. HENT: Moist mucous membranes. No scleral icterus. No cervical lymphadenopathy. LUNGS: Clear to auscultation bilaterally. No accessory muscle use. CARDIOVASCULAR: Regular rate and rhythm. No murmur. No JVD. ABDOMEN: Soft, non-tender and non-distended. No palpable masses. EXTREMITIES: No edema. Non-tender.?SKIN: No rashes or lesions. Warm. NEUROLOGIC: No focal neurological deficits. CN II-XII grossly intact, but not individually tested. PSYCHIATRIC: Cooperative. Appropriate mood and affect. Current Medications Medications (Trade) Dose Ordered Sig/Sonja Route PRN Reason Start Time Stop Time Status Last Admin Dose Admin Acetaminophen (TYLenol 325MG TAB) 650 mg Q6H PRN PO MILD PAIN (1-3) 02/26/25 16:30 03/28/25 16:29 03/01/25 00:01 650 MG Amlodipine Besylate (NorvASC 5MG TAB) 5 mg Q12H PO 02/26/25 15:30 02/27/25 20:24 DC 02/27/25 17:36 5 MG Amlodipine Besylate (NorvASC 5MG TAB) 5 mg Q12H PO 02/28/25 09:00 03/30/25 08:59 03/01/25 08:33 5 MG Ceftriaxone Sodium (ROCEphine 1G INJ) 1 gm Q24H IVPB 02/26/25 14:30 02/26/25 14:38 DC Dextrose (D50w) 50 ml AD PRN IV HYPOGLYCEMIA PROTOCOL 02/27/25 13:00 03/29/25 12:59 Famotidine (Pepcid 20mg Tab) 20 mg ONCE PO 02/27/25 13:30 02/28/25 11:00 DC 02/27/25 17:35 20 MG Gabapentin (NEURontin 300 MG CAP) 600 mg BID PO 02/27/25 12:30 03/29/25 12:29 03/01/25 08:33 600 MG Glucagon (Glucagon 1mg Kit) 1 mg AD PRN IM HYPOGLYCEMIA PROTOCOL 02/27/25 13:00 03/29/25 12:59 Insulin Human Regular (humuLIN R 100 UNIT/ML 3ML) INSULIN SLIDING SCAL... ACHS SQ 02/26/25 16:30 03/28/25 16:29 02/28/25 22:04 3 UNIT Labetalol HCl (TRANdate 20MG SYG) 10 mg Q6H PRN IV SBP> 170 02/26/25 15:30 03/28/25 15:29 03/01/25 08:23 10 MG Lactulose (Constulose 20gm/ 30ml Udcup) 20 gm Q6H6 PRN PO CONSTIPATION 02/28/25 14:30 03/30/25 14:29 02/28/25 14:52 20 GM Levofloxacin/ Dextrose 100 ml @ 100 mls/hr Q48H IV 02/26/25 16:30 02/26/25 16:08 DC Lidocaine (Lidoderm Patch 5%) 1 patch Q24H TP 02/27/25 13:00 03/29/25 12:59 02/28/25 12:40 1 PATCH Magnesium Sulfate 50 ml @ 0 mls/hr PROTOCOL IV 02/26/25 15:30 03/28/25 15:29 02/26/25 17:01 25 MLS/HR Meropenem (Merrem 500mg) 500 mg Q12H IVPB 02/26/25 16:30 03/08/25 16:29 03/01/25 04:01 500 MG Ondansetron HCl (zoFRAN 4MG INJ) 4 mg Q6H PRN IVP NAUSEA/VOMITING 02/26/25 16:30 03/28/25 16:29 02/28/25 18:01 4 MG Oxycodone/ Acetaminophen (perCOCET) 1 tab Q6H PRN PO SEVERE PAIN (7-10) 02/27/25 13:00 03/06/25 12:59 Potassium Chloride 100 ml @ 50 mls/hr AD PRN IV POTASSIUM PROTOCOL 02/27/25 13:00 03/29/25 12:59 Sodium Chloride 1,000 ml @ 100 mls/hr Q10H IV 02/26/25 15:30 03/28/25 15:29 03/01/25 05:24 100 MLS/HR Thiamine HCl (Vitamin B-1) 100 mg Q24H IVP 02/26/25 15:30 03/28/25 15:29 02/28/25 14:51 100 MG Venlafaxine HCl (EffEXOR XR 37.5mg CAP) 150 mg DAILY PO 02/28/25 09:00 03/30/25 08:59 03/01/25 08:33 150 MG LABORATORY: [ ] Hematology Labs: Test 03/02/25 05:17 Range/Units White Blood Count 10.8 4.8-10.8 K/uL Red Blood Count 3.43 L 4.00-5.50 MIL/uL Hemoglobin 8.6 L 12.0-16.0 g/dL Hematocrit 27.0 L 36-48 % Mean Corpuscular Volume 78.7 L 79-99 fL Mean Corpuscular Hemoglobin 25.1 L 27.0-33.0 pg Mean Corpuscular Hemoglobin Concent 31.9 L 32.0-36.0 g/dL Red Cell Distribution Width 15.3 11.0-15.5 % Platelet Count 108 L 130-400 K/uL Mean Platelet Volume 11.1 H 7.5-10.5 fL Immature Granulocyte % (Auto) 0.8 0-1 % Neutrophils (%) (Auto) 77.4 H 40.0-77.0 % Lymphocytes (%) (Auto) 10.8 L 21.0-51.0 % Monocytes (%) (Auto) 9.9 3.0-13.0 % Eosinophils (%) (Auto) 0.7 0.0-8.0 % Basophils (%) (Auto) 0.4 0.0-5.0 % Neutrophils # (Auto) 8.4 H 1.8-7.7 K/uL Lymphocytes # (Auto) 1.2 1.0-4.8 K/uL Monocytes # (Auto) 1.1 H 0.1-1.0 K/uL Eosinophils # (Auto) 0.08 0.00-0.70 K/uL Basophils # (Auto) 0.04 0.00-0.20 K/uL Absolute Immature Granulocyte (auto 0.09 0-1 K/uL Nucleated Red Blood Cells 0.0 0.0-0.19 % Chemistry Labs: Test 03/02/25 10:46 03/02/25 05:17 02/28/25 15:26 Range/Units Whole Blood Glucose 118 H 70-110 MG/DL Sodium Level 134 L 136-145 mmol/L Potassium Level 3.7 3.5-5.1 mmol/L Chloride Level 104 101-111 mmol/L Carbon Dioxide Level 19 L 21-32 mmol/L Blood Urea Nitrogen 21 H 7-18 mg/dL Creatinine 1.9 H 0.5-1.0 mg/dL Glomerular Filtration Rate Calc 28 >90 mL/min Random Glucose 139 H 70-105 mg/dL Total Calcium 7.4 L 8.5-10.1 mg/dL Phosphorus Level 3.3 2.5-4.9 mg/dL Magnesium Level 1.60 L 1.80-2.40 mg/dL Ferritin 48956 H 15-150 ng/mL Total Bilirubin 0.4 0.2-1.0 mg/dL Aspartate Amino Transf (AST/SGOT) 80 H 10-37 U/L Alanine Aminotransferase (ALT/SGPT) 38 # 12-78 U/L Alkaline Phosphatase 195 H 50-136 U/L C-Reactive Protein, Quantitative 108.40 H 0.5-3.0 mg/L Total Protein 6.0 6.0-8.3 g/dL Albumin 1.7 L 3.5-5.0 g/dL Lactic Acid Level 1.4 0.8-2.5 mmol/L DIAGNOSTICS / RADIOLOGY: REASON: Lumbar back pain rule out metastasis ORDERING PHYSICIAN: NAKIA LIZ MD PROCEDURE: L SPIN WO - CT LUMBAR SPINE W/O CONTRAST CT LUMBAR SPINE W/O CONTRAST HISTORY: Low back pain COMPARISON: None TECHNIQUE: Multiple sequential axial images of the lumbar spine were obtained including post processing sagittal and coronal reconstruction images. Patient was not given contrast through intravenous route. 3-dimensional reconstruction images were obtained. FINDINGS: Grade 1 anterolisthesis is seen at L4-5 level. Endplate degenerative changes with disc space narrowing at L5-S1 level. There is no loss of vertebral height. Evaluation for disc and cord pathology is limited with CT study. No evidence of fracture or dislocation is seen. IMPRESSION: 1. No fracture is seen. DJD. CT was performed with one or more following dose reduction techniques: automated exposure control, adjustment of the mA and kv according to patient's size, or use of a iterative reconstruction technique. DICTATED BY: DAVID RODRIGUEZ MD DATE: 02/27/25 1533 REASON: hx of colon and bladder cancer, uti, recent cystoscopy, hx of neprhectomy ORDERING PHYSICIAN: JEB HELM MD PROCEDURE: ABD PEL WO - CT ABDOMEN/PELVIS W/O CONTRAST CT ABDOMEN/PELVIS W/O CONTRAST HISTORY: History of colon and bladder cancer COMPARISON: None TECHNIQUE: Multiple sequential axial images of the abdomen and pelvis were obtained from the dome of the diaphragm through symphysis pubis. Patient was not given contrast through intravenous route. Oral contrast was not given. Reconstruction images were not obtained. This is limiting evaluation. FINDINGS: No pleural effusion is seen bilaterally. There is no evidence of parenchymal disease or pulmonary nodule of the visualized lower lungs. Degenerative changes of the thoracolumbar spine are present. The heart is not enlarged. Postcholecystectomy changes are seen. A small hiatal hernia is seen. The study is limited due to lack of oral and IV contrast. The liver, spleen, adrenal glands and pancreas are unremarkable. 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 There may be minimal left hydronephrosis. No evidence of renal stone is seen. Fecal material is seen in the colon. There are normal size retroperitoneal and mesenteric lymph nodes. No ascites is seen. Atherosclerotic changes are present. Pelvic sidewalls are symmetric bilaterally. Deformity is seen of the right pubic ramus may be related to old trauma. Bladder is well distended without wall thickening. IMPRESSION: 1. The study is limited due to lack of oral and IV contrast. The study is limited due to the lack of two-dimensional reconstruction images. Small hiatal hernia is seen. No ascites is seen. Right kidney has been advanced and the minimal left hydronephrosis. CT was performed with one or more following dose reduction techniques: automated exposure control, adjustment of the mA and kv according to patient's size, or use of a iterative reconstruction technique. DICTATED BY: DAVID RODRIGUEZ MD DATE: 02/26/25 1612 REASON: chest pain ORDERING PHYSICIAN: ALISON KIDD DO PROCEDURE: CXR1VW - CHEST 1VW CHEST 1VW HISTORY: Chest pain COMPARISON: 07/17/2003 FINDINGS: A frontal projection of the chest was obtained. No acute pulmonary infiltrates is seen. The heart is normal in size. Prominent interstitial markings are seen. Aortic calcification are seen. Degenerative changes are seen. IMPRESSION: 1. No acute pulmonary infiltrate is seen. DICTATED BY: DAVID RODRIGUEZ MD DATE: 02/26/25 1252 ASSESSMENT: Complicated urinary tract infection, POA Sepsis without shock, POA CELIA on CKD, POA History of right renal nephrectomy, POA Dehydration, POA Normocytic anemia, POA History of bladder cancer, POA Prior history of colon cancer about 20 years ago status post colon resection, POA Hypomagnesemia, POA Hypovolemic hyponatremia, POA Underlying history of hypertension, POA Hyperlipidemia, POA Type 2 diabetes mellitus, POA Obesity, POA History of allergy to penicillin and heparin, POA PLAN: Labs, diagnostic, radiologic exams reviewed and interpreted by myself and supervising physician. We have reviewed external records in detail Require close monitoring of renal function and electrolytes Order CBC, CMP, and electrolytes in am Continue with antibiotics Renal diabetic diet BiPAP as necessary, for respiratory distress Monitor blood pressure adjust medication doses as needed Avoid hypotensive episodes May use Dilaudid 0.5 mg IV every 6 hours as needed for severe pain Monitor blood sugars Strict intake, output, and daily weight should be monitored Please renally adjust medications Avoid nephrotoxic and nonsteroidal drugs Avoid contrast if possible Will continue to monitor renal function, anemia, electrolytes Treatment plan discussed with patient Questions were answered We have discussed with the other team physicians in detail about the care plan We will continue to monitor the patient closely ATTESTATION BY PHYSICIAN I have seen and examined the patient. I reviewed the documentation, medical decision making, and treatment plan as noted by the mid-level provider above. I agree with the findings and plan of care. AMADOR NEAL MD, [facility] Mar 02, 2025 14:52
--- NOTE | 2025-03-02 17:07 | PN ---
[facility] PROGRESS NOTE Date of Service: Mar 02, 2025 Time of Service: 17:06 SUBJECTIVE: [ ] Date of service: 02/26/2025, patient was seen in ER room 17 74-year-old female with underlying history of hypertension, hyperlipidemia, type 2 diabetes mellitus, obesity, history of bladder cancer followed at [facility], prior history of colon cancer who presented to the ER for further evaluation of generalized weakness, poor oral intake, malaise and asthenia. Symptoms have been ongoing for the past 3-4 days where patient reports having poor oral intake and myalgias. Patient reports that on 02/18/25, she had a routine surveillance cystoscopy done in [facility], and since then she has been feeling unwell. Patient denies any headache or focal weakness of upper or lower extremities. She has a history of bladder cancer several years ago for which she underwent chemotherapy as well as surgery. 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 Patient has a history of right renal nephrectomy. On presentation to the hospital, patient was noted to be afebrile with T-max of 99.3, tachycardic with heart rate in the 100s, blood pressure of 154/72. Labs on presentation showed WBC count of 6400, hemoglobin of 10, platelet count of 707759. BMP remarkable for sodium 132, potassium 3.7, BUN of 20, creatinine 2.1, magnesium 1.5, procalcitonin was elevated at 3.19 with AST of 79, ALT of 63, alkaline phosphatase of 187. Urinalysis showed cloudy urine with pyuria, bacteriuria. Patient will be admitted for further management of urinary tract infection and dehydration. Patient does have underlying history of penicillin allergy with renal failure. Patient will be started on broad-spectrum antibiotics with IV Merrem venom and consultation with Infectious Disease will be requested. We will see how patient progresses closely. February 27, 2025 74-year-old female remains admitted for generalized weakness and poor oral intake, initially presenting on February 26, 2025. Patient reports slight improvement in energy today but still feels overall weak and unable to ambulate independently. She has been able to take oral fluids and a light meal, which she tolerated well. She continues to complain of significant lower back pain (rated 7/10), described as dull, aching, non-radiating, worsened with movement. Denies saddle anesthesia, bowel or bladder incontinence. No current fever, chills, chest pain, palpitations, nausea, or vomiting. Denies any new neurological symptoms. Patient is aware that urine analysis and preliminary culture was positive and is currently receiving IV meropenem. She is agreeable to physical therapy assessment. No new urinary complaints. Mild improvement in mental clarity and fatigue. 02/28/25 74-year-old female with a complex medical history remains admitted for complicated UTI, CELIA on CKD, and generalized weakness. Today she is febrile (Tmax 100.8F) and tachycardic (HR 386198 bpm). She continues to feel weak but is tolerating PO fluids and food. Back pain is mild and controlled with Tylenol. No new shortness of breath, chest pain, or focal neurological symptoms. Patient has been informed that her urine culture grew gram-negative rods; sensitivities are pending. She remains on renal-dosed IV meropenem. Reports no nausea, vomiting, or new urinary symptoms. Oriented and cooperative. 03/01/25 PATIENT WAS EXAMINED AT BEDSIDE INITIALLY SHE WAS SLEEPY IN THE MORNING WHEN SEEN DURING ROUNDS BUT SHE WAS RE-EVALUATED2 HOURS LATER AND IS AWAKE ALERT AND ABLE TO ACTIVELY PARTICIPATE IN PHYSICAL THERAPY. SHE CONTINUES TO REPORT FATIGUE AND SUBJECTIVE FEVERS. SHE SHE DENIES CHEST PAIN SHORTNESS OF BREATH OR NEW ABDOMINAL PAIN. APPETITE REMAINS POOR A TOLERATING SMALL AMOUNTS OF ORAL INTAKE. SHE DENIES NAUSEA VOMITING. SHE IS AWARE OF THE POSITIVE URINE CULTURE AND IS RECEIVING IV MEROPENEM. ECHO HAS BEEN ORDERED, RESULTS PENDING. NO SIGNS OF NEW BLEEDING. DENIES CONFUSION OR FOCAL WEAKNESS. URINE OUTPUT HAS IMPROVED BUT STILL REMAINS ON THE LOWER SIDE. 03/02/25 patient seen and examined. Case discussed with the RN. She was a little stronger but still weak. Appreciate nephrology recommendations. Continue with physical therapy REVIEW OF SYSTEMS CONSTITUTIONAL: Fevers, chills, asthenia malaise NEUROLOGICAL: Denies headache, amaurosis fugax, motor weakness, sensory deficit, vertigo/spinning sensation, gait abnormalities, or tremors. ENT: No hearing loss, otalgia, otorrhea, rhinitis, rhinorrhea, hoarseness, or sore throat. CARDIOVASCULAR: Denies any exertional angina, dyspnea on exertion, orthopnea, paroxysmal nocturnal dyspnea, palpitations, life-threatening arrhythmias, claudication. PULMONARY: Denies any shortness of breath, cough, phlegm/sputum, hemoptysis, pleuritic chest pain. SLEEP: Denies morning headaches, daytime somnolence or napping. Denies difficulty falling asleep, staying asleep, waking from sleep. Denies knowledge of snoring. GASTROINTESTINAL: Poor oral intake with nausea GENITOURINARY: Denies frequency, urgency, nocturia, hematuria or incontinence (Storage/Irritative symptoms.) Low urinary stream, straining to void, urinary intermittency or hesitancy, splitting of the voiding stream, terminal dribbling. ENDOCRINOLOGIC: Denies polyuria, polydipsia, polyphagia or heat/cold intolerances. HEMATOLOGIC: Denies thrombophilia/previous clots, or coagulopathy/bleeding disorders. ONCOLOGIC: Denies personal history of malignancy. DERMATOLOGIC: Denies rashes or pruritus. PSYCHIATRIC: Denies any suicidal or homicidal ideation. Denies hallucinations. PHYSICAL EXAM GENERAL APPEARANCE: The patient is awake, alert, and oriented, in no acute cardiopulmonary distress. Appears frail and debilitated NEUROLOGICAL: Cranial nerves II-XII grossly intact. Motor is 5/5 in bilateral upper and lower extremities proximal to distal. No sensory deficits. HEENT: Face is symmetric. Pupils are equal and reactive. Extraocular movements are intact. NECK: Supple. No JVD. No thyromegaly. No submental, submandibular, pre- /postauricular, occipital or supraclavicular lymphadenopathy. CHEST: Normal chest expansion. No Telemetry. LUNGS: Absence of any rales, rhonchi or any wheezing. CARDIOVASCULAR: Regular. S1 and S2 normal. No appreciable rubs, murmurs or gallops. ABDOMEN: Soft, nontender, and nondistended. There is no rebound, voluntary guarding, or rigidity. : Deferred. No Kent. EXTREMITIES: Non-edematous and not cyanotic. No clubbing. Good capillary refill. SKIN: No skin breakdown. Vital Signs (last 8hr) Date Time Temp Pulse Resp B/P (MAP) Pulse Ox O2 Delivery O2 Flow Rate FiO2 03/02/25 15:41 98.4 96 18 140/55 96 Room Air 03/02/25 11:33 98.2 97 16 125/56 96 Room Air LABS: Laboratory: Test 03/02/25 15:47 03/02/25 05:17 Range/Units Whole Blood Glucose 200 #H 70-110 MG/DL White Blood Count 10.8 4.8-10.8 K/uL Red Blood Count 3.43 L 4.00-5.50 MIL/uL Hemoglobin 8.6 L 12.0-16.0 g/dL Hematocrit 27.0 L 36-48 % Mean Corpuscular Volume 78.7 L 79-99 fL Mean Corpuscular Hemoglobin 25.1 L 27.0-33.0 pg Mean Corpuscular Hemoglobin Concent 31.9 L 32.0-36.0 g/dL Red Cell Distribution Width 15.3 11.0-15.5 % Platelet Count 108 L 130-400 K/uL Mean Platelet Volume 11.1 H 7.5-10.5 fL Immature Granulocyte % (Auto) 0.8 0-1 % Neutrophils (%) (Auto) 77.4 H 40.0-77.0 % Lymphocytes (%) (Auto) 10.8 L 21.0-51.0 % Monocytes (%) (Auto) 9.9 3.0-13.0 % Eosinophils (%) (Auto) 0.7 0.0-8.0 % Basophils (%) (Auto) 0.4 0.0-5.0 % Neutrophils # (Auto) 8.4 H 1.8-7.7 K/uL Lymphocytes # (Auto) 1.2 1.0-4.8 K/uL Monocytes # (Auto) 1.1 H 0.1-1.0 K/uL Eosinophils # (Auto) 0.08 0.00-0.70 K/uL Basophils # (Auto) 0.04 0.00-0.20 K/uL Absolute Immature Granulocyte (auto 0.09 0-1 K/uL Nucleated Red Blood Cells 0.0 0.0-0.19 % Sodium Level 134 L 136-145 mmol/L Potassium Level 3.7 3.5-5.1 mmol/L Chloride Level 104 101-111 mmol/L Carbon Dioxide Level 19 L 21-32 mmol/L Blood Urea Nitrogen 21 H 7-18 mg/dL Creatinine 1.9 H 0.5-1.0 mg/dL Glomerular Filtration Rate Calc 28 >90 mL/min Random Glucose 139 H 70-105 mg/dL Total Calcium 7.4 L 8.5-10.1 mg/dL Phosphorus Level 3.3 2.5-4.9 mg/dL Magnesium Level 1.60 L 1.80-2.40 mg/dL Ferritin 81281 H 15-150 ng/mL Total Bilirubin 0.4 0.2-1.0 mg/dL Aspartate Amino Transf (AST/SGOT) 80 H 10-37 U/L Alanine Aminotransferase (ALT/SGPT) 38 # 12-78 U/L Alkaline Phosphatase 195 H 50-136 U/L C-Reactive Protein, Quantitative 108.40 H 0.5-3.0 mg/L Total Protein 6.0 6.0-8.3 g/dL Albumin 1.7 L 3.5-5.0 g/dL Current Medications Medications (Trade) Dose Ordered Sig/Sonja Route PRN Reason Start Time Stop Time Status Last Admin Dose Admin Acetaminophen (TYLenol 325MG TAB) 650 mg Q6H PRN PO MILD PAIN (1-3) 02/26/25 16:30 03/28/25 16:29 03/02/25 05:32 650 MG Amlodipine Besylate (NorvASC 5MG TAB) 5 mg Q12H PO 02/26/25 15:30 02/27/25 20:24 DC 02/27/25 17:36 5 MG Amlodipine Besylate (NorvASC 5MG TAB) 5 mg Q12H PO 02/28/25 09:00 03/30/25 08:59 03/02/25 08:51 5 MG Ceftriaxone Sodium (ROCEphine 1G INJ) 1 gm Q24H IVPB 02/26/25 14:30 02/26/25 14:38 DC Dextrose (D50w) 50 ml AD PRN IV HYPOGLYCEMIA PROTOCOL 02/27/25 13:00 03/29/25 12:59 Famotidine (Pepcid 20mg Tab) 20 mg ONCE PO 02/27/25 13:30 02/28/25 11:00 DC 02/27/25 17:35 20 MG Gabapentin (NEURontin 300 MG CAP) 600 mg BID PO 02/27/25 12:30 03/29/25 12:29 03/02/25 08:50 600 MG Glucagon (Glucagon 1mg Kit) 1 mg AD PRN IM HYPOGLYCEMIA PROTOCOL 02/27/25 13:00 03/29/25 12:59 Insulin Human Regular (humuLIN R 100 UNIT/ML 3ML) INSULIN SLIDING SCAL... ACHS SQ 02/26/25 16:30 03/28/25 16:29 03/01/25 17:08 2 UNIT Iron Sucrose (VenoFER) 300 mg Q24H IVP 03/01/25 14:30 03/01/25 14:24 DC Iron Sucrose 300 mg/Sodium Chloride 250 ml @ 83 mls/hr Q24H IV 03/01/25 14:30 03/02/25 17:31 03/02/25 15:00 83 MLS/HR Labetalol HCl (TRANdate 20MG SYG) 10 mg Q6H PRN IV SBP> 170 02/26/25 15:30 03/28/25 15:29 03/01/25 08:23 10 MG Lactulose (Constulose 20gm/ 30ml Udcup) 20 gm Q6H6 PRN PO CONSTIPATION 02/28/25 14:30 03/30/25 14:29 02/28/25 14:52 20 GM Levofloxacin/ Dextrose 100 ml @ 100 mls/hr Q48H IV 02/26/25 16:30 02/26/25 16:08 DC Lidocaine (Lidoderm Patch 5%) 1 patch Q24H TP 02/27/25 13:00 03/29/25 12:59 03/02/25 13:24 1 PATCH Magnesium Sulfate 50 ml @ 0 mls/hr PROTOCOL IV 02/26/25 15:30 03/28/25 15:29 02/26/25 17:01 25 MLS/HR Meropenem (Merrem 500mg) 500 mg Q12H IVPB 02/26/25 16:30 03/08/25 16:29 03/02/25 04:12 500 MG Ondansetron HCl (zoFRAN 4MG INJ) 4 mg Q6H PRN IVP NAUSEA/VOMITING 02/26/25 16:30 03/28/25 16:29 02/28/25 18:01 4 MG Oxycodone/ Acetaminophen (perCOCET) 1 tab Q6H PRN PO SEVERE PAIN (7-10) 02/27/25 13:00 03/06/25 12:59 03/02/25 13:24 1 TAB Potassium Chloride 100 ml @ 50 mls/hr AD PRN IV POTASSIUM PROTOCOL 02/27/25 13:00 03/29/25 12:59 Sodium Chloride 1,000 ml @ 100 mls/hr Q10H IV 02/26/25 15:30 03/28/25 15:29 03/02/25 04:31 100 MLS/HR Thiamine HCl (Vitamin B-1) 100 mg Q24H IVP 02/26/25 15:30 03/28/25 15:29 03/02/25 15:00 100 MG Venlafaxine HCl (EffEXOR XR 37.5mg CAP) 150 mg DAILY PO 02/28/25 09:00 03/30/25 08:59 03/02/25 08:51 150 MG Vitamin B Complex/ Vit C/Folic Acid (Nephrovite Tablet) 1 cap DAILY PO 03/02/25 09:00 04/01/25 08:59 03/02/25 08:51 1 CAP DIAGNOSTICS / RADIOLOGY: [ ] ASSESSMENT: Complicated urinary tract infection, POA Sepsis without shock, POA CELIA on CKD, POA History of right renal nephrectomy, POA Dehydration, POA Normocytic anemia, POA History of bladder cancer, POA Prior history of colon cancer about 20 years ago status post colon resection, POA Hypomagnesemia, POA Hypovolemic hyponatremia, POA Underlying history of hypertension, POA Hyperlipidemia, POA Type 2 diabetes mellitus, POA Obesity, POA History of allergy to penicillin and heparin, POA PLAN: BC COUNT INCREASED TO 11.5 FROM 6.4, HEMOGLOBIN IS AT 10.0 LOW NEUTROPHILS INCREASED TO 81.6%, ABSOLUTE NEUTROPHILS INCREASED TO 9.4 SODIUM IS135 LOW, BUN22 , CREATININE 2.0 STABLE, [id number] HIGH ALT54 MILDLY INCREASED, ALKALINE PHOSPHATASE 2INCREASED FROM 171 YESTERDAY, CRP ELEVATED AT 96.3, URINE CULTURE MORE THAN [id number] COLONY-FORMING UNITS GRAM-NEGATIVE RODS, SUSCEPTIBILITY PENDING. BLOOD CULTURES NO GROWTH AT DAYS, ECHO RESULTS PENDING. CONTINUE IV MEROPENEM, REASSESS AFTER SUSCEPTIBILITY RETURNS. ID TO RE-EVALUATE ANTIBIOTIC COVERAGE AFTER CULTURE FINALIZED. ELEVATED AST, ALKALINE PHOSPHATASE POSSIBLY ANTIBIOTIC INDUCED OR INFECTION RELATED NO SIGNS OF OBSTRUCTION OR PRIOR CT. MONITOR LFTS DAILY IF WORSENING CONSIDER ULTRASOUND ABDOMEN. Patient will be admitted to medical-surgical floor under telemetry monitoring We will request consultation with Infectious Disease and Nephrology We will request consultation with Physical therapy for patient mobilization Anticipate hospitalization for at least 48-72 hours, we will follow up patient closely All labs will be repeated in the morning Medications were renally dose, avoid any NSAIDs, avoid any nephrotoxic medications Complicated UTI (POA): Gram-negative bacteriuria with persistent fever and tachycardia Awaiting sensitivities; on renal-dosed meropenem Kent-associated, high risk of upper tract involvement * Started on Meropenem 500 mg IV Q12H, renal-dosed ID to review for source control and antibiotic narrowing CRP trended (today and tomorrow) Monitor lactate, CRP, WBC, and urine output closely Monitor fever pattern, repeat BCx if febrile after 4872h * Continue Kent care, monitor urine output 2. Acute Kidney Injury on CKD (Stage 3b, POA): * Baseline Cr 1.5, now 2.1 Continue IV NS @ 100 mL/hr Daily BMP, monitor Cr and urine output Nephrology to review renal dosing, UOP status * Avoid nephrotoxic agents (NSAIDs, IV contrast) CVS Echocardiogram ordered to assess for potential endocarditis or structural cause of persistent fever Monitor HR trend (now [id number]) 3. Dehydration, Hypovolemic Hyponatremia (POA): * Mild hyponatremia (Na 134), clinically volume-depleted * Continue IVF (NS @100 mL/hr) * Monitor daily BMP, urine output 4. Anemia Normocytic Hypochromic (POA): * Hb 9.6, MCV 78.9; likely ACD + iron deficiency * Continue ferrous sulfate * Monitor retic count, iron panel, haptoglobin, LDH 5. Severe Lower Back Pain : * Lidocaine patch to back PRN * Percocet 5/325 mg PO Q6H PRN for severe pain * Avoid NSAIDs due to renal impairment * PT eval ordered for early mobilization 6. Hypoalbuminemia, Malnutrition (POA): * Albumin 2.1 * Nutritional support encouraged * Nutrition consult pending 7. DM2 Uncontrolled (POA): * FSBS 150, down from 258 * Continue sliding scale insulin * Hold oral agents 8. Hypertension (POA): * Resume Amlodipine 5 mg PO BID * Labetalol 10 mg IV PRN Q6H for SBP >160 9. History of Colon & Bladder Cancer (POA): * Stable, surveillance ongoing * Recent cystoscopy reportedly normal * Coordinate with outpatient oncology 10. 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
--- NOTE | 2025-03-02 22:40 | NUR ---
PAIN Patient states severe pain and ache to lower back. PRN pain medication administered, see Emar. Patient refuses to be repositioned to relieve pressure off lower back. Educated on importance of repositioning every 2 hours, verbalized understanding. Call light within reach. Bed alarm on. Fall precautions in place.
[2025-03-03] VITALS (8 sets, daily range): BP systolic 128–157; BP diastolic 60–74; PULSE 84–109; RESP 17–20; TEMP 97.9–98.9; O2SAT 95–96
[2025-03-03 06:16] LABS: BASOPHILS # (AUTO) 0.04 K/uL (0.00-0.20); BASOPHILS % (AUTO) 0.4 % (0.0-5.0); EOSINOPHILS # (AUTO) 0.21 K/uL (0.00-0.70); EOSINOPHILS % (AUTO) 1.9 % (0.0-8.0); HEMATOCRIT 26.7 % (36-48); LYMPHOCYTES # (AUTO) 1.1 K/uL (1.0-4.8); LYMPHOCYTES % (AUTO) 9.8 % (21.0-51.0); MEAN CORPUSCULAR HEMOGLOBIN 25.2 pg (27.0-33.0); MEAN CORPUSCULAR HGB CONC 31.5 g/dL (32.0-36.0); MEAN CORPUSCULAR VOLUME 80.2 fL (79-99); MONOCYTES # (AUTO) 1.2 K/uL (0.1-1.0); MONOCYTES % (AUTO) 10.3 % (3.0-13.0); NEUTROPHILS # (AUTO) 8.7 K/uL (1.8-7.7); NEUTROPHILS % (AUTO) 76.7 % (40.0-77.0); PLATELET COUNT (AUTO) 131 K/uL (130-400); RED BLOOD CELL COUNT(AUTO) 3.33 MIL/uL (4.00-5.50); RED CELL DISTRIBUTION WIDTH 15.4 % (11.0-15.5); WHITE BLOOD COUNT (AUTO) 11.3 K/uL (4.8-10.8)
[2025-03-03 06:33] LABS: ALBUMIN 1.6 g/dL (3.5-5.0); BILIRUBIN,TOTAL 0.3 mg/dL (0.2-1.0); MAGNESIUM 1.7 mg/dL (1.80-2.40); PHOSPHORUS 3.7 mg/dL (2.5-4.9); POTASSIUM 3.8 mmol/L (3.5-5.1); TOTAL PROTEIN, SERUM 5.8 g/dL (6.0-8.3)
--- NOTE | 2025-03-03 09:17 | PN ---
SUBJECTIVE: A 74-year-old female with history of bladder cancer. She initially presented, found to have pyelonephritis. The patient remains on the antibiotics. She has had acute on chronic renal failure in the hospital. Creatinine has been elevated. The patient does have significant debilitation and is being seen by case management for final disposition, which will be the SNF. The patient is being seen as a followup visit for all of the above. REVIEW OF SYSTEMS: GENERAL: She is feeling improved since admission. HEENT: No change in vision. No change in hearing, no nasal discharge, no sore throat. CARDIOVASCULAR: There is no current chest pain or palpitations. PULMONARY: There is no shortness of breath. GASTROINTESTINAL: She is tolerating a diet. MUSCULOSKELETAL: Complains of weakness. PHYSICAL EXAMINATION:. VITAL SIGNS: Blood pressure 128/67, pulse 100s. GENERAL: She is afebrile. Chronically ill female, elderly, lying in bed on medical floor. HEENT: Head is atraumatic. Pupils equal, roving to light. Oropharynx is without exudate. Nares clear. NECK: There is no JVP. There is no thyromegaly, no mass. CARDIOVASCULAR: Regular. There is no S3, S4 gallop. LUNGS: Coarse with equal thoracic movement. ABDOMEN: Soft, nondistended, nontender. EXTREMITIES: Revealed no clubbing, no cyanosis. NEUROLOGIC: She is awake, she is alert. LABORATORY DATA: Hemoglobin 8.4, hematocrit 26, white cell count 11,000. Sodium 135, potassium 3.9, BUN 29, creatinine is 2. IMPRESSION: * Acute on chronic renal failure. * Pyelonephritis. * History of bladder cancer. * Hypertension. * Debilitation. PLAN: The patient continues with the IV antibiotics. The patient's creatinine has stabilized overnight. The patient's urine output has been adequate. She does have significant debilitation. The patient is being seen by case management for final disposition. Once the patient is discharged, she can follow up in the [facility]. TID: [id number] RECEIPT: [id number]
--- NOTE | 2025-03-03 15:21 | PN ---
[facility] PROGRESS NOTE Date of Service: Mar 03, 2025 Time of Service: 15:15 SUBJECTIVE: [ ] Date of service: 02/26/2025, patient was seen in ER room 17 74-year-old female with underlying history of hypertension, hyperlipidemia, type 2 diabetes mellitus, obesity, history of bladder cancer followed at [facility], prior history of colon cancer who presented to the ER for further evaluation of generalized weakness, poor oral intake, malaise and asthenia. Symptoms have been ongoing for the past 3-4 days where patient reports having poor oral intake and myalgias. Patient reports that on 02/18/25, she had a routine surveillance cystoscopy done in [facility], and since then she has been feeling unwell. Patient denies any headache or focal weakness of upper or lower extremities. She has a history of bladder cancer several years ago for which she underwent chemotherapy as well as surgery. 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 Patient has a history of right renal nephrectomy. On presentation to the hospital, patient was noted to be afebrile with T-max of 99.3, tachycardic with heart rate in the 100s, blood pressure of 154/72. Labs on presentation showed WBC count of 6400, hemoglobin of 10, platelet count of 725842. BMP remarkable for sodium 132, potassium 3.7, BUN of 20, creatinine 2.1, magnesium 1.5, procalcitonin was elevated at 3.19 with AST of 79, ALT of 63, alkaline phosphatase of 187. Urinalysis showed cloudy urine with pyuria, bacteriuria. Patient will be admitted for further management of urinary tract infection and dehydration. Patient does have underlying history of penicillin allergy with renal failure. Patient will be started on broad-spectrum antibiotics with IV Merrem venom and consultation with Infectious Disease will be requested. We will see how patient progresses closely. February 27, 2025 74-year-old female remains admitted for generalized weakness and poor oral intake, initially presenting on February 26, 2025. Patient reports slight improvement in energy today but still feels overall weak and unable to ambulate independently. She has been able to take oral fluids and a light meal, which she tolerated well. She continues to complain of significant lower back pain (rated 7/10), described as dull, aching, non-radiating, worsened with movement. Denies saddle anesthesia, bowel or bladder incontinence. No current fever, chills, chest pain, palpitations, nausea, or vomiting. Denies any new neurological symptoms. Patient is aware that urine analysis and preliminary culture was positive and is currently receiving IV meropenem. She is agreeable to physical therapy assessment. No new urinary complaints. Mild improvement in mental clarity and fatigue. 02/28/25 74-year-old female with a complex medical history remains admitted for complicated UTI, CELIA on CKD, and generalized weakness. Today she is febrile (Tmax 100.8F) and tachycardic (HR 624485 bpm). She continues to feel weak but is tolerating PO fluids and food. Back pain is mild and controlled with Tylenol. No new shortness of breath, chest pain, or focal neurological symptoms. Patient has been informed that her urine culture grew gram-negative rods; sensitivities are pending. She remains on renal-dosed IV meropenem. Reports no nausea, vomiting, or new urinary symptoms. Oriented and cooperative. 03/01/25 PATIENT WAS EXAMINED AT BEDSIDE INITIALLY SHE WAS SLEEPY IN THE MORNING WHEN SEEN DURING ROUNDS BUT SHE WAS RE-EVALUATED2 HOURS LATER AND IS AWAKE ALERT AND ABLE TO ACTIVELY PARTICIPATE IN PHYSICAL THERAPY. SHE CONTINUES TO REPORT FATIGUE AND SUBJECTIVE FEVERS. SHE SHE DENIES CHEST PAIN SHORTNESS OF BREATH OR NEW ABDOMINAL PAIN. APPETITE REMAINS POOR A TOLERATING SMALL AMOUNTS OF ORAL INTAKE. SHE DENIES NAUSEA VOMITING. SHE IS AWARE OF THE POSITIVE URINE CULTURE AND IS RECEIVING IV MEROPENEM. ECHO HAS BEEN ORDERED, RESULTS PENDING. NO SIGNS OF NEW BLEEDING. DENIES CONFUSION OR FOCAL WEAKNESS. URINE OUTPUT HAS IMPROVED BUT STILL REMAINS ON THE LOWER SIDE. 03/02/25 patient seen and examined. Case discussed with the RN. She was a little stronger but still weak. Appreciate nephrology recommendations. Continue with physical therapy 03/03/25 Patient was evaluated at bedside today. She reports feeling slightly better, and is more alert and communicative. No fevers or chills today. She had a bowel movement yesterday and is working with physical therapy, able to ambulate with office administrative assistant. Still reports generalized fatigue but denies new onset of chest pain, shortness of breath, abdominal pain, nausea, vomiting or dysuria. She remains tachycardic but hemodynamically stable. Appetite remains limited. She is awaiting a placement at a assisted facility once medically optimized. Id is actively managing antibiotic coverage. Nephrology has cleared her for outpatient follow-up. REVIEW OF SYSTEMS CONSTITUTIONAL: Fevers, chills, asthenia malaise NEUROLOGICAL: Denies headache, amaurosis fugax, motor weakness, sensory deficit, vertigo/spinning sensation, gait abnormalities, or tremors. ENT: No hearing loss, otalgia, otorrhea, rhinitis, rhinorrhea, hoarseness, or sore throat. CARDIOVASCULAR: Denies any exertional angina, dyspnea on exertion, orthopnea, paroxysmal nocturnal dyspnea, palpitations, life-threatening arrhythmias, claudication. PULMONARY: Denies any shortness of breath, cough, phlegm/sputum, hemoptysis, pleuritic chest pain. SLEEP: Denies morning headaches, daytime somnolence or napping. Denies difficulty falling asleep, staying asleep, waking from sleep. Denies knowledge of snoring. GASTROINTESTINAL: Poor oral intake with nausea GENITOURINARY: Denies frequency, urgency, nocturia, hematuria or incontinence (Storage/Irritative symptoms.) Low urinary stream, straining to void, urinary intermittency or hesitancy, splitting of the voiding stream, terminal dribbling. ENDOCRINOLOGIC: Denies polyuria, polydipsia, polyphagia or heat/cold intolerances. HEMATOLOGIC: Denies thrombophilia/previous clots, or coagulopathy/bleeding disorders. ONCOLOGIC: Denies personal history of malignancy. DERMATOLOGIC: Denies rashes or pruritus. PSYCHIATRIC: Denies any suicidal or homicidal ideation. Denies hallucinations. PHYSICAL EXAM GENERAL APPEARANCE: The patient is awake, alert, and oriented, in no acute cardiopulmonary distress. Appears frail and debilitated NEUROLOGICAL: Cranial nerves II-XII grossly intact. Motor is 5/5 in bilateral upper and lower extremities proximal to distal. No sensory deficits. HEENT: Face is symmetric. Pupils are equal and reactive. Extraocular movements are intact. NECK: Supple. No JVD. No thyromegaly. No submental, submandibular, pre- /postauricular, occipital or supraclavicular lymphadenopathy. CHEST: Normal chest expansion. No Telemetry. LUNGS: Absence of any rales, rhonchi or any wheezing. CARDIOVASCULAR: Regular. S1 and S2 normal. No appreciable rubs, murmurs or g allops. ABDOMEN: Soft, nontender, and nondistended. There is no rebound, voluntary gua rding, or rigidity. : Deferred. No Kent. EXTREMITIES: Non-edematous and not cyanotic. No clubbing. Good capillary refill. SKIN: No skin breakdown. Vital Signs (last 8hr) Date Time Temp Pulse Resp B/P (MAP) Pulse Ox O2 Delivery O2 Flow Rate FiO2 03/03/25 11:51 98.8 103 19 141/63 93 03/03/25 07:54 99.0 102 20 128/67 95 03/03/25 07:40 95 Room Air* 0 21 LABS: Laboratory: Test 03/03/25 11:14 03/03/25 05:52 03/02/25 05:17 Range/Units Whole Blood Glucose 175 H 70-110 MG/DL White Blood Count 11.3 H 4.8-10.8 K/uL Red Blood Count 3.33 L 4.00-5.50 MIL/uL Hemoglobin 8.4 L 12.0-16.0 g/dL Hematocrit 26.7 L 36-48 % Mean Corpuscular Volume 80.2 79-99 fL Mean Corpuscular Hemoglobin 25.2 L 27.0-33.0 pg Mean Corpuscular Hemoglobin Concent 31.5 L 32.0-36.0 g/dL Red Cell Distribution Width 15.4 11.0-15.5 % Platelet Count 131 130-400 K/uL Mean Platelet Volume 10.9 H 7.5-10.5 fL Immature Granulocyte % (Auto) 0.9 0-1 % Neutrophils (%) (Auto) 76.7 40.0-77.0 % Lymphocytes (%) (Auto) 9.8 L 21.0-51.0 % Monocytes (%) (Auto) 10.3 3.0-13.0 % Eosinophils (%) (Auto) 1.9 0.0-8.0 % Basophils (%) (Auto) 0.4 0.0-5.0 % Neutrophils # (Auto) 8.7 H 1.8-7.7 K/uL Lymphocytes # (Auto) 1.1 1.0-4.8 K/uL Monocytes # (Auto) 1.2 H 0.1-1.0 K/uL Eosinophils # (Auto) 0.21 0.00-0.70 K/uL Basophils # (Auto) 0.04 0.00-0.20 K/uL Absolute Immature Granulocyte (auto 0.10 0-1 K/uL Nucleated Red Blood Cells 0.0 0.0-0.19 % Sodium Level 135 L 136-145 mmol/L Potassium Level 3.8 3.5-5.1 mmol/L Chloride Level 106 101-111 mmol/L Carbon Dioxide Level 20 L 21-32 mmol/L Blood Urea Nitrogen 29 H 7-18 mg/dL Creatinine 2.0 H 0.5-1.0 mg/dL Glomerular Filtration Rate Calc 26 >90 mL/min Random Glucose 156 H 70-105 mg/dL Total Calcium 7.5 L 8.5-10.1 mg/dL Phosphorus Level 3.7 2.5-4.9 mg/dL Magnesium Level 1.70 L 1.80-2.40 mg/dL Total Bilirubin 0.3 0.2-1.0 mg/dL Aspartate Amino Transf (AST/SGOT) 56 H 10-37 U/L Alanine Aminotransferase (ALT/SGPT) 29 12-78 U/L Alkaline Phosphatase 180 H 50-136 U/L Total Protein 5.8 L 6.0-8.3 g/dL Albumin 1.6 L 3.5-5.0 g/dL Ferritin 62396 H 15-150 ng/mL C-Reactive Protein, Quantitative 108.40 H 0.5-3.0 mg/L Current Medications Medications (Trade) Dose Ordered Sig/Sonja Route PRN Reason Start Time Stop Time Status Last Admin Dose Admin Acetaminophen (TYLenol 325MG TAB) 650 mg Q6H PRN PO MILD PAIN (1-3) 02/26/25 16:30 03/28/25 16:29 03/02/25 05:32 650 MG Amlodipine Besylate (NorvASC 5MG TAB) 5 mg Q12H PO 02/26/25 15:30 02/27/25 20:24 DC 02/27/25 17:36 5 MG Amlodipine Besylate (NorvASC 5MG TAB) 5 mg Q12H PO 02/28/25 09:00 03/30/25 08:59 03/03/25 09:45 5 MG Ceftriaxone Sodium (ROCEphine 1G INJ) 1 gm Q24H IVPB 02/26/25 14:30 02/26/25 14:38 DC Dextrose (D50w) 50 ml AD PRN IV HYPOGLYCEMIA PROTOCOL 02/27/25 13:00 03/29/25 12:59 Famotidine (Pepcid 20mg Tab) 20 mg ONCE PO 02/27/25 13:30 02/28/25 11:00 DC 02/27/25 17:35 20 MG Gabapentin (NEURontin 300 MG CAP) 600 mg BID PO 02/27/25 12:30 03/29/25 12:29 03/03/25 09:45 600 MG Glucagon (Glucagon 1mg Kit) 1 mg AD PRN IM HYPOGLYCEMIA PROTOCOL 02/27/25 13:00 03/29/25 12:59 Insulin Human Regular (humuLIN R 100 UNIT/ML 3ML) INSULIN SLIDING SCAL... ACHS SQ 02/26/25 16:30 03/28/25 16:29 03/02/25 21:05 6 UNIT Iron Sucrose (VenoFER) 300 mg Q24H IVP 03/01/25 14:30 03/01/25 14:24 DC Iron Sucrose 300 mg/Sodium Chloride 250 ml @ 83 mls/hr Q24H IV 03/01/25 14:30 03/02/25 17:31 DC 03/02/25 15:00 83 MLS/HR Labetalol HCl (TRANdate 20MG SYG) 10 mg Q6H PRN IV SBP> 170 02/26/25 15:30 03/28/25 15:29 03/01/25 08:23 10 MG Lactulose (Constulose 20gm/ 30ml Udcup) 20 gm Q6H6 PRN PO CONSTIPATION 02/28/25 14:30 03/30/25 14:29 02/28/25 14:52 20 GM Levofloxacin/ Dextrose 100 ml @ 100 mls/hr Q48H IV 02/26/25 16:30 02/26/25 16:08 DC Lidocaine (Lidoderm Patch 5%) 1 patch Q24H TP 02/27/25 13:00 03/29/25 12:59 03/03/25 11:59 1 PATCH Magnesium Sulfate 50 ml @ 0 mls/hr PROTOCOL IV 02/26/25 15:30 03/28/25 15:29 03/03/25 09:47 25 MLS/HR Meropenem (Merrem 500mg) 500 mg Q12H IVPB 02/26/25 16:30 03/08/25 16:29 03/03/25 05:19 500 MG Ondansetron HCl (zoFRAN 4MG INJ) 4 mg Q6H PRN IVP NAUSEA/VOMITING 02/26/25 16:30 03/28/25 16:29 02/28/25 18:01 4 MG Oxycodone/ Acetaminophen (perCOCET) 1 tab Q6H PRN PO SEVERE PAIN (7-10) 02/27/25 13:00 03/06/25 12:59 03/02/25 22:34 1 TAB Potassium Chloride 100 ml @ 50 mls/hr AD PRN IV POTASSIUM PROTOCOL 02/27/25 13:00 03/29/25 12:59 Sodium Chloride 1,000 ml @ 100 mls/hr Q10H IV 02/26/25 15:30 03/28/25 15:29 03/03/25 05:18 100 MLS/HR Thiamine HCl (Vitamin B-1) 100 mg Q24H IVP 02/26/25 15:30 03/28/25 15:29 03/02/25 15:00 100 MG Venlafaxine HCl (EffEXOR XR 37.5mg CAP) 150 mg DAILY PO 02/28/25 09:00 03/30/25 08:59 03/03/25 09:45 150 MG Vitamin B Complex/ Vit C/Folic Acid (Nephrovite Tablet) 1 cap DAILY PO 03/02/25 09:00 04/01/25 08:59 03/03/25 09:45 1 CAP DIAGNOSTICS / RADIOLOGY: PATIENT: DANIEL SOLIMAN MR#: [id number] : 1950 SEX: F AGE: 74 LOCATION: [facility] ORDER 21 STATUS: ADM IN REPORT#: [id number] SERVICE 1519 REASON: hx of colon and bladder cancer, uti, recent cystoscopy, hx of neprhectomy ORDERING PHYSICIAN: JEB HELM MD PROCEDURE: ABD PEL WO - CT ABDOMEN/PELVIS W/O CONTRAST CT ABDOMEN/PELVIS W/O CONTRAST HISTORY: History of colon and bladder cancer COMPARISON: None TECHNIQUE: Multiple sequential axial images of the abdomen and pelvis were obtained from the dome of the diaphragm through symphysis pubis. Patient was not given contrast through intravenous route. Oral contrast was not given. Reconstruction images were not obtained. This is limiting evaluation. FINDINGS: No pleural effusion is seen bilaterally. There is no evidence of parenchymal disease or pulmonary nodule of the visualized lower lungs. Degenerative changes of the thoracolumbar spine are present. The heart is not enlarged. Postcholecystectomy changes are seen. A small hiatal hernia is seen. The study is limited due to lack of oral and IV contrast. The liver, spleen, adrenal glands and pancreas are unremarkable. 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 There may be minimal left hydronephrosis. No evidence of renal stone is seen. Fecal material is seen in the colon. There are normal size retroperitoneal and mesenteric lymph nodes. No ascites is seen. Atherosclerotic changes are present. Pelvic sidewalls are symmetric bilaterally. Deformity is seen of the right pubic ramus may be related to old trauma. Bladder is well distended without wall thickening. IMPRESSION: 1. The study is limited due to lack of oral and IV contrast. The study is limited due to the lack of two-dimensional reconstruction images. Small hiatal hernia is seen. No ascites is seen. Right kidney has been advanced and the minimal left hydronephrosis. CT was performed with one or more following dose reduction techniques: automated exposure control, adjustment of the mA and kv according to patient's size, or use of a iterative reconstruction technique. DICTATED BY: DAVID RODRIGUEZ MD DATE: 02/26/251611 ELECTRONICALLY SIGNED BY: DAVID RODRIGUEZ MD DATE: 02/26/25 161 [ PATIENT: DANIEL SOLIMAN MR#: [id number] : 1950 SEX: F AGE: 74 LOCATION: [facility] ORDER 1305 STATUS: ADM IN REPORT#: [id number] SERVICE 1253 REASON: Lumbar back pain rule out metastasis ORDERING PHYSICIAN: NAKIA LIZ MD PROCEDURE: L SPIN WO - CT LUMBAR SPINE W/O CONTRAST CT LUMBAR SPINE W/O CONTRAST HISTORY: Low back pain COMPARISON: None TECHNIQUE: Multiple sequential axial images of the lumbar spine were obtained including post processing sagittal and coronal reconstruction images. Patient was not given contrast through intravenous route. 3-dimensional reconstruction images were obtained. FINDINGS: Grade 1 anterolisthesis is seen at L4-5 level. Endplate degenerative changes with disc space narrowing at L5-S1 level. There is no loss of vertebral height. Evaluation for disc and cord pathology is limited with CT study. No evidence of fracture or dislocation is seen. IMPRESSION: 1. No fracture is seen. DJD. CT was performed with one or more following dose reduction techniques: automated exposure control, adjustment of the mA and kv according to patient's size, or use of a iterative reconstruction technique. DICTATED BY: DAVID RODRIGUEZ MD DATE: 02/27/25 153 ELECTRONICALLY SIGNED BY: DAVID RODRIGUEZ MD DATE: 02/27/25 1544 ] PATIENT: DANIEL SOLIMAN MR#: [id number] : 1950 SEX: F AGE: 74 LOCATION: [facility] ORDER 1202 STATUS: ADM IN REPORT#: [id number] SERVICE 1200 REASON: Evaluate for structural heart diseases/endocarditis ORDERING PHYSICIAN: NAKIA LIZ MD PROCEDURE: ECHO CMP - ECHO 2-D COMPLETE APPROVED REPORT EXAM: Two-dimensional and M-mode echocardiogram with Doppler and color Doppler. INDICATION ICD: Evaluate for structural heart diseases/endocarditis 2D Dimensions RVDd 3.6 cm LVEF(%) 26.5 (>50%) LVED Vol(simp.) 86.3 mL IVSd 1.7 (0.7-1.1cm) FS(%) 12 % LVES Vol(simp.) 41.6 mL LVDd 2.7 (3.8-5.6cm) LA (2D) 3.4 (1.6-4.0cm) LVEF(%, simp.) 52 % PWd 1.8 (0.7-1.1cm) Ao Root(2D) 2.9 (2.0-3.7cm) LA ESV INDEX (BP) 30.50 mL/m2 LVDs 2.4 (2.5-4.0cm) LVOT diam 2.1 (1.8-2.4cm) Deformation Strain Apical 4 -14.0 % Apical 2 -14.0 % Apical 3 -15.0 % Global Strain -15.0 % M-Mode Dimensions EPSS 0.5 cm LA (MM) 5.1 (1.6-4.0cm) Ao Root(MM) 3.0 (2.0-3.7cm) Aortic Valve AoV Vmax 3.2 m/s Ao Peak GR 41.1 mmHg LVOT Vmax 1.1 m/s AoV VTI 0.5 m Ao Mean GR 22.5 mmHg LVOT VTI 0.20 m OLAF (VMAX) 1.4 cm2 OLAF (VTI) 1.4 cm2 Mitral Valve MV E Vmax 67.0 cm/s DECEL Time 94 ms MV A Vmax 108.5 cm/s P 1/2 T 36 ms E/A ratio 0.6 MVA (PHT) 6.1 cm2 TDI E/E' Medial 9.7 Pulmonary Valve PV Vmax 1.7 m/s Tricuspid Valve TR Vmax 2.9 m/s RVSP 27.8 mmHg TR Peak GR 38.4 mmHg Left Ventricle The left ventricle is normal size. No regional wall motion abnormalities noted. Moderate concentric left ventricular hypertrophy. Left ventricular systolic function is low-normal, estimated LVEF is 50-55%. Stage I diastolic dysfunction. Right Ventricle The right ventricle is normal size. Right ventricle systolic function is grossly normal. Atria The left atrium size is normal. The right atrium size is normal. Aortic Valve Aortic valve is trileaflet. The leaflets are thickened and calcified. Mild aortic regurgitation. Moderate aortic stenosis, peak velocity 3.3 m/s, mean gradient 24 mmHg, OLAF 1.4 cm. Mitral Valve The mitral valve is normal in structure. The leaflets are mildly thickened and c alcified. Trace mitral regurgitation. There is no mitral valve stenosis. Tricuspid Valve The tricuspid valve is normal in structure. Moderate tricuspid regurgitation. RVSP is 38 mmHg. Pulmonic Valve Pulmonic valve is not well visualized. Great Vessels The aortic root is normal in size. Due to poor image quality, the IVC could not be assessed. Pericardium There is no pericardial effusion. Conclusion Moderate concentric left ventricular hypertrophy. No regional wall motion abnormalities noted. Left ventricular systolic function is low-normal, estimated LVEF is 50-55%. Stage I diastolic dysfunction. Moderate aortic stenosis, peak velocity 3.3 m/s, mean gradient 24 mmHg, OLAF 1.4 cm. Mild aortic regurgitation. Trace mitral regurgitation. Moderate tricuspid regurgitation. RVSP is 38 mmHg. There is no pericardial effusion. DICTATED BY: BRET FERNANDEZ MD DATE: 03/01/25 0816 ELECTRONICALLY SIGNED BY: BRET FERNANDEZ MD DATE: 03/01/25 6268 ASSESSMENT: Complicated urinary tract infection, POA Sepsis without shock, POA CELIA on CKD, POA History of right renal nephrectomy, POA Dehydration, POA Normocytic anemia, POA History of bladder cancer, POA Prior history of colon cancer about 20 years ago status post colon resection, POA Hypomagnesemia, POA Hypovolemic hyponatremia, POA Underlying history of hypertension, POA Hyperlipidemia, POA Type 2 diabetes mellitus, POA Obesity, POA History of allergy to penicillin and heparin, POA PLAN: WBC count 11.3 increased hemoglobin is 8.4 low, hematocrit 26.7 low BUN is 29 increased creatinine 2.0 stable from 2.1 HbA1c 9.4 uncontrolled DM, calcium is 7.5, magnesium 1.7 normally ALP 180 lactic acid 1.4 normal blood cultures negative after4 days and urine culture more than [id number] colony-forming units Klebsiella and Proteus species. Echo reveals mild LVH, low normal LVEF at 50- 55, stage I diastolic dysfunction, mild valvular disease, RVSP38 mmHg. CONTINUE IV MEROPENEM, PENDING ID ANTIBIOTIC ADJUSTMENT PER SENSITIVITIES. ELEVATED AST, ALKALINE PHOSPHATASE POSSIBLY ANTIBIOTIC INDUCED OR INFECTION RELATED NO SIGNS OF OBSTRUCTION OR PRIOR CT. MONITOR LFTS DAILY IF WORSENING CONSIDER ULTRASOUND ABDOMEN. Patient will be admitted to medical-surgical floor under telemetry monitoring We will request consultation with Infectious Disease and Nephrology We will request consultation with Physical therapy for patient mobilization Anticipate hospitalization for at least 48-72 hours, we will follow up patient closely All labs will be repeated in the morning Medications were renally dose, avoid any NSAIDs, avoid any nephrotoxic medications Complicated UTI (POA): Gram-negative bacteriuria with persistent fever and tachycardia Awaiting sensitivities; on renal-dosed meropenem Kent-associated, high risk of upper tract involvement * Started on Meropenem 500 mg IV Q12H, renal-dosed ID to review for source control and antibiotic narrowing CRP trended (today and tomorrow) Monitor lactate, CRP, WBC, and urine output closely Monitor fever pattern, repeat BCx if febrile after 4872h * Continue Kent care, monitor urine output 2. Acute Kidney Injury on CKD (Stage 3b, POA): * Baseline Cr 1.5, now 2.1 Continue IV NS @ 100 mL/hr Daily BMP, monitor Cr and urine output Nephrology to review renal dosing, UOP status * Avoid nephrotoxic agents (NSAIDs, IV contrast) CVS Echocardiogram ordered to assess for potential endocarditis or structural cause of persistent fever Monitor HR trend (now [id number]) 3. Dehydration, Hypovolemic Hyponatremia (POA): * Mild hyponatremia (Na 134), clinically volume-depleted * Continue IVF (NS @100 mL/hr) * Monitor daily BMP, urine output 4. Anemia Normocytic Hypochromic (POA): * Hb 9.6, MCV 78.9; likely ACD + iron deficiency * Continue ferrous sulfate * Monitor retic count, iron panel, haptoglobin, LDH 5. Severe Lower Back Pain : * Lidocaine patch to back PRN * Percocet 5/325 mg PO Q6H PRN for severe pain * Avoid NSAIDs due to renal impairment * PT eval ordered for early mobilization 6. Hypoalbuminemia, Malnutrition (POA): * Albumin 2.1 * Nutritional support encouraged * Nutrition consult pending 7. DM2 Uncontrolled (POA): * FSBS 150, down from 258 * Continue sliding scale insulin * Hold oral agents 8. Hypertension (POA): * Resume Amlodipine 5 mg PO BID * Labetalol 10 mg IV PRN Q6H for SBP >160 9. History of Colon & Bladder Cancer (POA): * Stable, surveillance ongoing * Recent cystoscopy reportedly normal * Coordinate with outpatient oncology 10. 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 I reviewed the documentation, medical decision making, and treatment plan as noted by the resident above. I agree with the findings and plan of care. Jean-Pierre Clements MD, RAGHAVA R MD Mar 03, 2025 15:21
[2025-03-03] MEDS: atorVAStatin 20 MG TABLET PO SCH (21:01)
--- NOTE | 2025-03-03 21:18 | PN ---
NEPHROLOGY NOTE SUBJECTIVE: The patient has multiple medical problems including renal failure and anemia. The patient has underlying chronic kidney disease, diabetes, hypertension, history of renal cell cancer, colon cancer, liver cancer, bladder cancer, lung cancer, right nephrectomy. The patient is monitored on all the situation. No other associated finding. No other aggravating or relieving factors. The patient is weak. The patient has been on broad-spectrum antibiotics. All the other systemic review is unchanged. REVIEW OF SYSTEMS: CONSTITUTIONAL: With no fever, chills or rigors. HEENT: With no headache, oral ulcers, sore throat or difficulty swallowing. RESPIRATORY: With no cough, expectoration, hemoptysis, or pleuritic pain. CARDIOVASCULAR: No orthopnea or PND. GASTROINTESTINAL: Negative for nausea, vomiting or diarrhea reported. GENITOURINARY: Negative for dysuria or hematuria. DERMATOLOGICAL: No rashes, pruritus or skin lesion. ENDOCRINE: No polyuria, polydipsia or polyphagia. PSYCHIATRIC: Negative for anxiety, depression or hallucinations. Other systemic review is unchanged. PHYSICAL EXAMINATION: GENERAL: Pale, no other distress or deformities, lying in bed. NEUROLOGIC: No seizure. VITAL SIGNS: Blood pressure is around 128/67, pulse 102, respiratory rate 20, afebrile. HEENT: Head is atraumatic. Pupils are round and reactive. Sclerae are anicteric. Conjunctivae not pale. Oral mucosa is not dry. NECK: Without masses or bruits. Thyroid is palpable. Neck has no bruits. CHEST: Shows equal thoracic percussion note being resonant in all areas. CARDIAC: Regular rhythm, no rub, no S3, S4. No parasternal heave. BACK: No tenderness, no back deformities. LABORATORY DATA: We have reviewed available labs in detail. Lab data has shown the patient has low hemoglobin of 8.4. White cell count is 11.3. Creatinine is 2, BUN of 29, low GFR. Low magnesium, low sodium. Imaging studies are personally reviewed. Albumin is quite low up to 1.6 and old records have been reviewed. ASSESSMENT: This patient has renal failure, acute on chronic with underlying history of diabetic nephropathy, hypertension, history of bladder cancer, history of renal cell cancer, history of nephrectomy, single kidney in a patient who has underlying sepsis, complicated UTI, dehydration, colon cancer for which she has colon resection, hypomagnesemia, history of hypertension, hyperlipidemia, diabetes and other comorbidities. PLAN: * The patient should get iron panel and ferritin. Continued monitoring of renal function. * Continue on antibiotics, IV meropenem has been given. Meanwhile, the patient has single kidney and nephrotoxics to be avoided. Doses of medicine to be adjusted. Condition is complicated. We have discussed the other kidney failure and please avoid contrast, nonsteroidal drug and nephrotoxics. Doses of medicine to be adjusted. I have discussed with other team physicians and we will follow up closely. Overall condition remained guarded. The patient's sugars will be monitored. Insulin will be avoided. IV Dilaudid 0.5 q. 6 can be used for pain. Intake, output, weight, overall status will be monitored and condition is critical and guarded. Seen several times. I thank you for this patient. The patient was seen several times today. TID: [id number] RECEIPT: [id number]
--- NOTE | 2025-03-03 21:38 | PN ---
INFECTIOUS DISEASE PROGRESS NOTE Date of Service: Mar 03, 2025 SUBJECTIVE: This is a 74-year-old female patient who was seen and examined at bedside in room 316. The final urine culture results came back positive for Klebsiella pneumoniae and Proteus mirabilis. Patient remains afebrile, temperature is 98.8. Patient will continue on Meropenem. Case management working on placement to SNF. No other issues reported by nursing PHYSICAL EXAM EYES: Anicteric. Pupils equal and reactive. HENT: No oral thrush seen, moist Oral mucosa. NECK: Supple, no JVD or thyromegaly. LUNGS: Good air entry. No rales, no rhonchi. CARDIOVASCULAR: S1, S2 regular. No murmur heard. ABDOMEN: Soft, non tender, bowel sounds present, no organomegaly. Obese. CENTRAL NERVOUS SYSTEM: Awake, alert, oriented x 3. SKIN: No rashes, no swelling. LYMPHATICS: No peripheral lymphadenopathy. MUSCULOSKELETAL: No joint swelling, erythema or tenderness. EXTREMITIES: No cyanosis or clubbing. Weakness BACK: No deformity, no pressure ulcer. GENITOURINARY: No dysuria or hematuria. Vital Sign (Last 12 Hours) 03/03/25 03/03/25 03/03/25 03/03/25 11:51 16:00 19:19 20:14 Temp 98.8 98.4 98.2 Pulse 103 84 109 Resp 19 20 17 B/P (MAP) 141/63 144/69 157/74 Pulse Ox 93 95 96 96 O2 Delivery Room Air Room Air* Room Air O2 Flow Rate 0 FiO2 21 Intake & Output (last 24hrs) 03/02/25 03/02/25 03/03/25 15:00 23:00 07:00 Intake Total 500 ml 1100.0 ml Output Total 500 ml Balance 500 ml 600.0 ml LABS: Laboratory: Test 03/03/25 19:15 03/03/25 05:52 03/02/25 05:17 Range/Units Whole Blood Glucose 245 H 70-110 MG/DL White Blood Count 11.3 H 4.8-10.8 K/uL Red Blood Count 3.33 L 4.00-5.50 MIL/uL Hemoglobin 8.4 L 12.0-16.0 g/dL Hematocrit 26.7 L 36-48 % Mean Corpuscular Volume 80.2 79-99 fL Mean Corpuscular Hemoglobin 25.2 L 27.0-33.0 pg Mean Corpuscular Hemoglobin Concent 31.5 L 32.0-36.0 g/dL Red Cell Distribution Width 15.4 11.0-15.5 % Platelet Count 131 130-400 K/uL Mean Platelet Volume 10.9 H 7.5-10.5 fL Immature Granulocyte % (Auto) 0.9 0-1 % Neutrophils (%) (Auto) 76.7 40.0-77.0 % Lymphocytes (%) (Auto) 9.8 L 21.0-51.0 % Monocytes (%) (Auto) 10.3 3.0-13.0 % Eosinophils (%) (Auto) 1.9 0.0-8.0 % Basophils (%) (Auto) 0.4 0.0-5.0 % Neutrophils # (Auto) 8.7 H 1.8-7.7 K/uL Lymphocytes # (Auto) 1.1 1.0-4.8 K/uL Monocytes # (Auto) 1.2 H 0.1-1.0 K/uL Eosinophils # (Auto) 0.21 0.00-0.70 K/uL Basophils # (Auto) 0.04 0.00-0.20 K/uL Absolute Immature Granulocyte (auto 0.10 0-1 K/uL Nucleated Red Blood Cells 0.0 0.0-0.19 % Sodium Level 135 L 136-145 mmol/L Potassium Level 3.8 3.5-5.1 mmol/L Chloride Level 106 101-111 mmol/L Carbon Dioxide Level 20 L 21-32 mmol/L Blood Urea Nitrogen 29 H 7-18 mg/dL Creatinine 2.0 H 0.5-1.0 mg/dL Glomerular Filtration Rate Calc 26 >90 mL/min Random Glucose 156 H 70-105 mg/dL Total Calcium 7.5 L 8.5-10.1 mg/dL Phosphorus Level 3.7 2.5-4.9 mg/dL Magnesium Level 1.70 L 1.80-2.40 mg/dL Total Bilirubin 0.3 0.2-1.0 mg/dL Aspartate Amino Transf (AST/SGOT) 56 H 10-37 U/L Alanine Aminotransferase (ALT/SGPT) 29 12-78 U/L Alkaline Phosphatase 180 H 50-136 U/L Total Protein 5.8 L 6.0-8.3 g/dL Albumin 1.6 L 3.5-5.0 g/dL Ferritin 56369 H 15-150 ng/mL C-Reactive Protein, Quantitative 108.40 H 0.5-3.0 mg/L DIAGNOSTICS / RADIOLOGY: PATIENT: DANIEL SOLIMAN ACCT: [id number] LOC: [facility] U: [id number] AGE/SX: 74/F ROOM: [facility] RE02/26/[address]: JEB HELM MD : 1950 BED: 1 DIS: STATUS: ADM IN TLOC: SPEC: [id number] LIZ: 02/26/25 STATUS: COMP REQ: [id number] RECD: 02/27/[address]: ALISON KIDD DO SOURCE: URINE CATH ENTR: 02/27/[address]: SELF,REFERRAL SPDESC: CATHERIZED ORDERED: AERO ID & SENS Procedure Result Renu Date-Time -- AEROBIC ID & SENSITIVITIES Final 04/06/25-0558 MRL COLONY DESCRIPTION: DAY 1: COLONY COUNT: >100,000 CFU/ML GRAM NEGATIVE RODS IDENTIFICATION AND SENSITIVITY TO FOLLOW DAY 2: SLOW-GROWER; RESULTS PENDING DAY 3: NO FURTHER WORK-UP DONE KLEBSIELLA PNEUMONIAE PROTEUS MIRABILIS K PNEUMO PMIRABILIS M.I.C. RX M.I.C. RX --------- ---- --------- ---- AMPICILLIN <=8 S AZTREONAM <=4 S <=4 S CEFAZOLIN <=2 S <=2 S CEFTAZIDIME/AVIBACTAM <=8 S <=8 S GENTAMICIN <=2 S <=2 S LEVOFLOXACIN <=0.5 S <=0.5 S NITROFURANTOIN >64 R MEROPENEM <=1 S <=1 S PIPERACILLIN/TAZOBACTAM <=8 S <=8 S TRIMETHOPRIM/SUFLAMETHOXAZOLE <=2/38 S <=2/38 S ASSESSMENT: Urinary tract infection with Proteus mirabilis and Klebsiella pneumoniae. Acute renal failure. Leukocytosis. Morbid obesity Diabetes mellitus Dehydration Iron-deficiency Anemia. Debility. PLAN: Continue meropenem. Continue diabetic medication. Continue pain management. Will monitor electrolytes Continue physical therapy. Case management working on SNF placement. This case was reviewed and discussed with my supervising physician and the above assessment and plan was formulated and agreed upon. ATTESTATION BY PHYSICIAN I have seen and examined the patient. I reviewed the documentation, medical decision making, and treatment plan as noted by the mid-level provider above. I agree with the findings and plan of care. DEBBIE THOMSON MD, MIRTA L [facility] Mar 03, 2025 21:38
[2025-03-04 00:07] VITALS: BP 145/65; PULSE 96; RESP 16; TEMP 98
[2025-03-04 04:11] VITALS: BP 130/68; PULSE 105; RESP 17; TEMP 97.8
[2025-03-04 05:40] LABS: BASOPHILS # (AUTO) 0.04 K/uL (0.00-0.20); BASOPHILS % (AUTO) 0.4 % (0.0-5.0); EOSINOPHILS % (AUTO) 3.2 % (0.0-8.0); HEMATOCRIT 25.5 % (36-48); IMMATURE GRANULOCYTE ABSOLUTE 0.14 K/uL (0-1); LYMPHOCYTES # (AUTO) 1.2 K/uL (1.0-4.8); LYMPHOCYTES % (AUTO) 12.9 % (21.0-51.0); MEAN CORPUSCULAR HGB CONC 31.4 g/dL (32.0-36.0); MEAN CORPUSCULAR VOLUME 79.7 fL (79-99); MONOCYTES % (AUTO) 11.1 % (3.0-13.0); NEUTROPHILS # (AUTO) 6.6 K/uL (1.8-7.7); NEUTROPHILS % (AUTO) 70.9 % (40.0-77.0); PLATELET COUNT (AUTO) 186 K/uL (130-400); RED CELL DISTRIBUTION WIDTH 15.7 % (11.0-15.5); WHITE BLOOD COUNT (AUTO) 9.3 K/uL (4.8-10.8)
[2025-03-04 05:55] LABS: ALBUMIN 1.7 g/dL (3.5-5.0); BILIRUBIN,TOTAL 0.3 mg/dL (0.2-1.0); POTASSIUM 3.7 mmol/L (3.5-5.1)
[2025-03-04 08:00] VITALS: BP 150/70; PULSE 102; RESP 20; TEMP 98; O2SAT 98
[2025-03-04] MEDS ORDERED: VENLAFAXINE HCL PO SCH (09:00)
[2025-03-04] MEDS ORDERED: GABAPENTIN 300 MG CAPSULE PO SCH (09:00)
[2025-03-04] MEDS: amLODIPine 5 MG TAB PO SCH (09:43)
[2025-03-04 12:00] VITALS: BP 145/62; PULSE 104; RESP 18; TEMP 97.3
--- NOTE | 2025-03-04 13:04 | NUR ---
Discharge Planning: Pt. accepted at [place] or [place]. Dr. Beck made aware.l
[2025-03-04] MEDS: FERROUS SULFATE 325 MG TABLET.DR PO SCH (13:51)
[2025-03-04] MEDS: CEFTRIAXONE 2GM VIAL IVPB SCH (13:51)
[2025-03-04] MEDS ORDERED: IRON sUCROse COMPLEX 100 MG/5 ML VIAL IV ONE (15:00)
--- NOTE | 2025-03-04 15:07 | DS ---
Discharge Summary Hospital Course Summary: The patient is a 74-year-old female admitted with generalized weakness, fatigue, and poor oral intake. She was found to have a complicated catheter-associated urinary tract infection and was initially managed for sepsis with elevated WBCs, persistent fevers, tachycardia, and positive urine cultures for ESBL-producing Klebsiella pneumoniae. Empiric therapy was started with Meropenem IV, and Infectious Disease (ID) was consulted. The patient improved clinically, became afebrile, and her white cell count trended down from 11.3 to 9.3. ID recommended de-escalation to IV Ceftriaxone 2 g IVPB Q24H based on the sensitivity panel. She received her first dose of IV Ceftriaxone in the hospital on discharge day. The patients kidney function initially worsened but improved after IV hydration. Her creatinine stabilized at 2.0, consistent with underlying CKD Stage 3b. Nephrology recommended outpatient follow-up. During admission, she was found to have iron-deficiency anemia superimposed on anemia of chronic disease. Her hemoglobin trended down to 8.0 g/dL, hematocrit to 25.5%. Her iron level was 22, TIBC 132, percent saturation 16.6. She was administered one dose of IV Venofer (iron sucrose) 200 mg IV prior to discharge. Her blood cultures remained negative throughout hospitalization. Electrolyte disturbances included hypokalemia (K+ 2.8), corrected with oral potassium chloride supplementation. She participated actively in physical therapy, demonstrated improvement in strength and endurance, and is now ambulatory with assistance. She was deemed medically stable and safe for discharge to a detention facility (SNF) where she will continue IV antibiotics, therapy, and nutritional optimization. 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 No acute pulmonary infiltrates is seen. The heart is normal in size. Prominent interstitial markings are seen. Aortic calcification are seen. Degenerative changes are seen. IMPRESSION: 1. No acute pulmonary infiltrate is seen. DICTATED BY: DAVID RODRIGUEZ MD DATE: 02/26/251251 ELECTRONICALLY SIGNED BY: DAVID RODRIGUEZ MD DATE: 02/26/251254 PATIENT: DANIEL SOLIMAN MR#: [id number] : 1950 SEX: F AGE: 74 LOCATION: [facility] ORDER 152 STATUS: ADM IN REPORT#: [id number] SERVICE 151 REASON: hx of colon and bladder cancer, uti, recent cystoscopy, hx of neprhectomy ORDERING PHYSICIAN: COREY TAMAYO MD PROCEDURE: ABD PEL WO - CT ABDOMEN/PELVIS W/O CONTRAST CT ABDOMEN/PELVIS W/O CONTRAST HISTORY: History of colon and bladder cancer COMPARISON: None TECHNIQUE: Multiple sequential axial images of the abdomen and pelvis were obtained from the dome of the diaphragm through symphysis pubis. Patient was not given contrast through intravenous route. Oral contrast was not given. Reconstruction images were not obtained. This is limiting evaluation. FINDINGS: No pleural effusion is seen bilaterally. There is no evidence of parenchymal disease or pulmonary nodule of the visualized lower lungs. Degenerative changes of the thoracolumbar spine are present. The heart is not enlarged. Postcholecystectomy changes are seen. A small hiatal hernia is seen. The study is limited due to lack of oral and IV contrast. The liver, spleen, adrenal glands and pancreas are unremarkable. 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 There may be minimal left hydronephrosis. No evidence of renal stone is seen. Fecal material is seen in the colon. There are normal size retroperitoneal and mesenteric lymph nodes. No ascites is seen. Atherosclerotic changes are present. Pelvic sidewalls are symmetric bilaterally. Deformity is seen of the right pubic ramus may be related to old trauma. Bladder is well distended without wall thickening. IMPRESSION: 1. The study is limited due to lack of oral and IV contrast. The study is limited due to the lack of two-dimensional reconstruction images. Small hiatal hernia is seen. No ascites is seen. Right kidney has been advanced and the minimal left hydronephrosis. CT was performed with one or more following dose reduction techniques: automated exposure control, adjustment of the mA and kv according to patient's size, or use of a iterative reconstruction technique. DICTATED BY: DAVID RODRIGUEZ MD DATE: 02/26/25 1612 ELECTRONICALLY SIGNED BY: DAVID RODRIGUEZ MD DATE: 02/26/25 1618 PATIENT: DANIEL SOLIMAN MR#: [id number] : 1950 SEX: F AGE: 74 LOCATION: [facility] ORDER 1305 STATUS: ADM IN REPORT#: [id number] SERVICE 1253 REASON: Lumbar back pain rule out metastasis ORDERING PHYSICIAN: NAKIA LIZ MD PROCEDURE: L SPIN WO - CT LUMBAR SPINE W/O CONTRAST CT LUMBAR SPINE W/O CONTRAST HISTORY: Low back pain COMPARISON: None TECHNIQUE: Multiple sequential axial images of the lumbar spine were obtained including post processing sagittal and coronal reconstruction images. Patient was not given contrast through intravenous route. 3-dimensional reconstruction images were obtained. FINDINGS: Grade 1 anterolisthesis is seen at L4-5 level. Endplate degenerative changes with disc space narrowing at L5-S1 level. There is no loss of vertebral height. Evaluation for disc and cord pathology is limited with CT study. No evidence of fracture or dislocation is seen. IMPRESSION: 1. No fracture is seen. DJD. CT was performed with one or more following dose reduction techniques: automated exposure control, adjustment of the mA and kv according to patient's size, or use of a iterative reconstruction technique. DICTATED BY: DAVID RODRIGUEZ MD DATE: 02/27/25 1533 ELECTRONICALLY SIGNED BY: DAVID RODRIGUEZ MD DATE: 02/27/25 1544 PATIENT: DANIEL SOLIMAN MR#: [id number] : 1950 SEX: F AGE: 74 LOCATION: [facility] ORDER 1202 STATUS: ADM IN REPORT#: [id number] SERVICE 1200 REASON: Evaluate for structural heart diseases/endocarditis ORDERING PHYSICIAN: NAKIA LIZ MD PROCEDURE: ECHO CMP - ECHO 2-D COMPLETE APPROVED REPORT EXAM: Two-dimensional and M-mode echocardiogram with Doppler and color Doppler. INDICATION ICD: Evaluate for structural heart diseases/endocarditis 2D Dimensions RVDd 3.6 cm LVEF(%) 26.5 (>50%) LVED Vol(simp.) 86.3 mL IVSd 1.7 (0.7-1.1cm) FS(%) 12 % LVES Vol(simp.) 41.6 mL LVDd 2.7 (3.8-5.6cm) LA (2D) 3.4 (1.6-4.0cm) LVEF(%, simp.) 52 % PWd 1.8 (0.7-1.1cm) Ao Root(2D) 2.9 (2.0-3.7cm) LA ESV INDEX (BP) 30.50 mL/m2 LVDs 2.4 (2.5-4.0cm) LVOT diam 2.1 (1.8-2.4cm) Deformation Strain Apical 4 -14.0 % Apical 2 -14.0 % Apical 3 -15.0 % Global Strain -15.0 % M-Mode Dimensions EPSS 0.5 cm LA (MM) 5.1 (1.6-4.0cm) Ao Root(MM) 3.0 (2.0-3.7cm) Aortic Valve AoV Vmax 3.2 m/s Ao Peak GR 41.1 mmHg LVOT Vmax 1.1 m/s AoV VTI 0.5 m Ao Mean GR 22.5 mmHg LVOT VTI 0.20 m OLAF (VMAX) 1.4 cm2 OLAF (VTI) 1.4 cm2 Mitral Valve MV E Vmax 67.0 cm/s DECEL Time 94 ms MV A Vmax 108.5 cm/s P 1/2 T 36 ms E/A ratio 0.6 MVA (PHT) 6.1 cm2 TDI E/E' Medial 9.7 Pulmonary Valve PV Vmax 1.7 m/s Tricuspid Valve TR Vmax 2.9 m/s RVSP 27.8 mmHg TR Peak GR 38.4 mmHg Left Ventricle The left ventricle is normal size. No regional wall motion abnormalities noted. Moderate concentric left ventricular hypertrophy. Left ventricular systolic function is low-normal, estimated LVEF is 50-55%. Stage I diastolic dysfunction. Right Ventricle The right ventricle is normal size. Right ventricle systolic function is grossly normal. Atria The left atrium size is normal. The right atrium size is normal. Aortic Valve Aortic valve is trileaflet. The leaflets are thickened and calcified. Mild aortic regurgitation. Moderate aortic stenosis, peak velocity 3.3 m/s, mean gradient 24 mmHg, OLAF 1.4 cm. Mitral Valve The mitral valve is normal in structure. The leaflets are mildly thickened and calcified. Trace mitral regurgitation. There is no mitral valve stenosis. Tricuspid Valve The tricuspid valve is normal in structure. Moderate tricuspid regurgitation. RVSP is 38 mmHg. Pulmonic Valve Pulmonic valve is not well visualized. Great Vessels The aortic root is normal in size. Due to poor image quality, the IVC could not be assessed. Pericardium There is no pericardial effusion. Conclusion Moderate concentric left ventricular hypertrophy. No regional wall motion abnormalities noted. Left ventricular systolic function is low-normal, estimated LVEF is 50-55%. Stage I diastolic dysfunction. Moderate aortic stenosis, peak velocity 3.3 m/s, mean gradient 24 mmHg, OLAF 1.4 cm. Mild aortic regurgitation. Trace mitral regurgitation. Moderate tricuspid regurgitation. RVSP is 38 mmHg. There is no pericardial effusion. DICTATED BY: BRET FERNANDEZ MD DATE: 03/01/25 0816 ELECTRONICALLY SIGNED BY: BRET FERNANDEZ MD DATE: 03/01/25 3270 Assessment/Plan: ASSESSMENT: Complicated urinary tract infection, POA Sepsis without shock, POA CELIA on CKD, POA History of right renal nephrectomy, POA Dehydration, POA Normocytic anemia, POA History of bladder cancer, POA Prior history of colon cancer about 20 years ago status post colon resection, POA Hypomagnesemia, POA Hypovolemic hyponatremia, POA Underlying history of hypertension, POA Hyperlipidemia, POA Type 2 diabetes mellitus, POA Obesity, POA History of allergy to penicillin and heparin, POA PLAN: WBC count 11.3 increased hemoglobin is 8.4 low, hematocrit 26.7 low BUN is 29 increased creatinine 2.0 stable from 2.1 HbA1c 9.4 uncontrolled DM, calcium is 7.5, magnesium 1.7 normally ALP 180 lactic acid 1.4 normal blood cultures negative after4 days and urine culture more than [id number] colony-forming units Klebsiella and Proteus species. Echo reveals mild LVH, low normal LVEF at 50- 55, stage I diastolic dysfunction, mild valvular disease, RVSP38 mmHg. CONTINUE IV MEROPENEM, PENDING ID ANTIBIOTIC ADJUSTMENT PER SENSITIVITIES. ELEVATED AST, ALKALINE PHOSPHATASE POSSIBLY ANTIBIOTIC INDUCED OR INFECTION RELATED NO SIGNS OF OBSTRUCTION OR PRIOR CT. MONITOR LFTS DAILY IF WORSENING CONSIDER ULTRASOUND ABDOMEN. Patient will be admitted to medical-surgical floor under telemetry monitoring We will request consultation with Infectious Disease and Nephrology We will request consultation with Physical therapy for patient mobilization Anticipate hospitalization for at least 48-72 hours, we will follow up patient closely All labs will be repeated in the morning Medications were renally dose, avoid any NSAIDs, avoid any nephrotoxic medications Complicated UTI (POA): Gram-negative bacteriuria with persistent fever and tachycardia Awaiting sensitivities; on renal-dosed meropenem Kent-associated, high risk of upper tract involvement * Started on Meropenem 500 mg IV Q12H, renal-dosed ID to review for source control and antibiotic narrowing CRP trended (today and tomorrow) Monitor lactate, CRP, WBC, and urine output closely Monitor fever pattern, repeat BCx if febrile after 4872h * Continue Kent care, monitor urine output 2. Acute Kidney Injury on CKD (Stage 3b, POA): * Baseline Cr 1.5, now 2.1 Continue IV NS @ 100 mL/hr Daily BMP, monitor Cr and urine output Nephrology to review renal dosing, UOP status * Avoid nephrotoxic agents (NSAIDs, IV contrast) CVS Echocardiogram ordered to assess for potential endocarditis or structural cause of persistent fever Monitor HR trend (now [id number]) 3. Dehydration, Hypovolemic Hyponatremia (POA): * Mild hyponatremia (Na 134), clinically volume-depleted * Continue IVF (NS @100 mL/hr) * Monitor daily BMP, urine output 4. Anemia Normocytic Hypochromic (POA): * Hb 9.6, MCV 78.9; likely ACD + iron deficiency * Continue ferrous sulfate * Monitor retic count, iron panel, haptoglobin, LDH 5. Severe Lower Back Pain : * Lidocaine patch to back PRN * Percocet 5/325 mg PO Q6H PRN for severe pain * Avoid NSAIDs due to renal impairment * PT eval ordered for early mobilization 6. Hypoalbuminemia, Malnutrition (POA): * Albumin 2.1 * Nutritional support encouraged * Nutrition consult pending 7. DM2 Uncontrolled (POA): * FSBS 150, down from 258 * Continue sliding scale insulin * Hold oral agents 8. Hypertension (POA): * Resume Amlodipine 5 mg PO BID * Labetalol 10 mg IV PRN Q6H for SBP >160 9. History of Colon & Bladder Cancer (POA): * Stable, surveillance ongoing * Recent cystoscopy reportedly normal * Coordinate with outpatient oncology 10. 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 MICROBIOLOGY : Reports attached to summary. ACTIVITY : AD [facility] HOME MEDICATION : Continued TEACHING : Reinforced the importance of medication compliance and follow-up appointments. Home Medications: Reported Medications Sennosides (Senna Laxative) 8.6 Mg Tablet, 1 TAB PO DAILY PRN for CONSTIPATION. for 30 Days, #30 TAB 0 Refills 02/27/25 Glipizide (Glipizide) 5 Mg Tablet, 5 MG PO DAILY, TAB 02/27/25 [Atorvastatin] No Conflict Check, 20 MG PO HS 02/27/25 Amlodipine Besylate (Amlodipine Besylate) 10 Mg Tablet, 1 TAB PO DAILY for 30 Days, #30 TAB 0 Refills 02/27/25 Venlafaxine HCl (Venlafaxine HCl ER) 150 Mg Cap.er.24h, 1 CAP PO DAILY for 30 Days, #30 CAP 0 Refills 02/27/25 Gabapentin (Gabapentin) 600 Mg Tablet, 1 TAB PO BID for 30 Days, #90 TAB 0 Refills 02/27/25 Discontinued Scripts Docusate Sodium (Colace) 100 Mg Capsule, 100 MG PO BID PRN for constipation for 10 Days, #20 CAP Prov:MARIAMA MASON MD 10/20/21 Ferrous Sulfate (Ferrous Sulfate) 220 Mg/5 Ml Elixir, 220 MG PO DAILY, #15 ML Prov:MARIAMA MASON MD 10/20/21 Acetaminophen (Tylenol) 500 Mg Tab, 500 MG PO Q6HPRN PRN for pain for 5 Days, #30 TAB Prov:MARIAMA MASON MD 10/20/21 Clindamycin HCl (Clindamycin HCl) 300 Mg Capsule, 300 MG PO Q4PRN for 7 Days, #28 CAP Prov:MARIAMA MASON MD 10/20/21 New Medications: Ceftriaxone Sodium (Ceftriaxone) 2 Gram Vial 2 GM IVPB Q24H for 10 Days, #10 VIAL 0 Refills Ferrous Sulfate (Ferrous Sulfate) 324 Mg (65 Mg Iron) Tablet.dr 325 MG PO TID for 10 Days, #30 TAB [Folic Acid/Vitamin B Comp W-C] () 1 CAP TAB 1 CAP PO DAILY for 20 Days, #20 0 Refills Continued Medications: Amlodipine Besylate (Amlodipine Besylate) 10 Mg Tablet 1 TAB PO DAILY for 30 Days, #30 TAB 0 Refills [Atorvastatin] () 20 MG PO HS Gabapentin (Gabapentin) 600 Mg Tablet 1 TAB PO BID for 30 Days, #90 TAB 0 Refills Glipizide (Glipizide) 5 Mg Tablet 5 MG PO DAILY, TAB Sennosides (Senna Laxative) 8.6 Mg Tablet 1 TAB PO DAILY PRN for CONSTIPATION. for 30 Days, #30 TAB 0 Refills Venlafaxine HCl (Venlafaxine HCl ER) 150 Mg Cap.er.24h 1 CAP PO DAILY for 30 Days, #30 CAP 0 Refills Time spent arranging discharge: 31-60 minutes ATTESTATION BY PHYSICIAN I have seen and examined the patient. I reviewed the documentation, medical decision making, and treatment plan as noted by the resident above. I agree with the findings and plan of care. Jean-Pierre Clements MD, RAGHAVA R MD Mar 04, 2025 15:07
[2025-03-04] MEDS ORDERED: FERR324T4 PO (15:25)
[2025-03-04] MEDS ORDERED: Folic Acid/Vitamin B Comp W-C PO (15:25)
[2025-03-04] MEDS ORDERED: CEFT2VIA12 IVPB (15:25)
[2025-03-04] MEDS ORDERED: ACET-66 PO (15:29)
--- NOTE | 2025-03-04 16:40 | NUR ---
note Report called to Maya alex gave report to Misa. Patient discharge instructions given, She stated understanding. All questions answered.
--- NOTE | 2025-03-04 16:44 | NUR ---
Notes: Met with pt. Pt reports good appetite, 100%, PO intake, NKFA, no n/v, last BM 01/31/2024, no difficulties chewing/swallowing, has had diabetic nutrition education at [facility], and has not consulted with a electrician's assistant. 500 ml intake per chart review Provided MNT UTI Nutrition Therapy, CELIA Nutrition therapy. Educated pt on fluid intake, protein sodium, potassium, phosphorus control. Encouraged pt to increase fluid intake per UTI. Pt expected to have fair compliance. Nutrition Concerns: Recommendations: Provide Renal Non-Dialysis Diet per charting + [id number] Fluid restriction per MD, if no restriction encourage fluid intake as able Provide Iron + Vit C 500 mg supplementation is medically feasible per anemia Continue Vit B1 as needed Continue Nephrovite QD as needed Monitor BM If BM >3 days consider Stool softener Monitor weight, Reweigh as possible Monitor electrolytes, Replenish electrolytes as protocol Monitor goals of care RD to follow + available for consult per protocol Dietetic Student, Janeen Keith Addendum: 03/04/25 at [address] Amended: Links added.
--- NOTE | 2025-03-04 16:48 | PN ---
INFECTIOUS DISEASE PROGRESS NOTE Date of Service: Mar 04, 2025 SUBJECTIVE: This is a 74-year-old female patient who was seen and examined at bedside in room 316. Patient is awake, alert and oriented x 3. No fever, temperature is 97.3. Meropenem was discontinued and patient was started on ceftriaxone. Patient was referred to [facility] and has been approved. Patient will continue ceftriaxone for 10 more days on discharge. Prescription was written. PHYSICAL EXAM EYES: Anicteric. Pupils equal and reactive. HENT: No oral thrush seen, moist Oral mucosa. NECK: Supple, no JVD or thyromegaly. LUNGS: Good air entry. No rales, no rhonchi. CARDIOVASCULAR: S1, S2 regular. No murmur heard. ABDOMEN: Soft, non tender, bowel sounds present, no organomegaly. Obese. CENTRAL NERVOUS SYSTEM: Awake, alert, oriented x 3. SKIN: No rashes, no swelling. LYMPHATICS: No peripheral lymphadenopathy. MUSCULOSKELETAL: No joint swelling, erythema or tenderness. EXTREMITIES: No cyanosis or clubbing. Weakness BACK: No deformity, no pressure ulcer. GENITOURINARY: No dysuria or hematuria. Vital Sign (Last 12 Hours) 03/04/25 03/04/25 03/04/25 08:00 08:00 12:00 Temp 98.1 97.3 Pulse 102 104 Resp 20 18 B/P (MAP) 150/70 145/62 Pulse Ox 98 98 96 O2 Delivery Room Air Room Air* Room Air O2 Flow Rate 0 FiO2 21 Intake & Output (last 24hrs) 03/03/25 03/03/25 03/04/25 15:00 23:00 07:00 Intake Total 1000.0 ml Output Total 900 ml 500 ml Balance -900 ml 500.0 ml LABS: Laboratory: Test 03/04/25 11:36 03/04/25 05:27 03/03/25 05:52 Range/Units Whole Blood Glucose 172 H 70-110 MG/DL White Blood Count 9.3 4.8-10.8 K/uL Red Blood Count 3.20 L 4.00-5.50 MIL/uL Hemoglobin 8.0 L 12.0-16.0 g/dL Hematocrit 25.5 L 36-48 % Mean Corpuscular Volume 79.7 79-99 fL Mean Corpuscular Hemoglobin 25.0 L 27.0-33.0 pg Mean Corpuscular Hemoglobin Concent 31.4 L 32.0-36.0 g/dL Red Cell Distribution Width 15.7 H 11.0-15.5 % Platelet Count 186 # 130-400 K/uL Mean Platelet Volume 11.2 H 7.5-10.5 fL Immature Granulocyte % (Auto) 1.5 H 0-1 % Neutrophils (%) (Auto) 70.9 40.0-77.0 % Lymphocytes (%) (Auto) 12.9 L 21.0-51.0 % Monocytes (%) (Auto) 11.1 3.0-13.0 % Eosinophils (%) (Auto) 3.2 0.0-8.0 % Basophils (%) (Auto) 0.4 0.0-5.0 % Neutrophils # (Auto) 6.6 1.8-7.7 K/uL Lymphocytes # (Auto) 1.2 1.0-4.8 K/uL Monocytes # (Auto) 1.0 0.1-1.0 K/uL Eosinophils # (Auto) 0.30 0.00-0.70 K/uL Basophils # (Auto) 0.04 0.00-0.20 K/uL Absolute Immature Granulocyte (auto 0.14 0-1 K/uL Nucleated Red Blood Cells 0.0 0.0-0.19 % Red Blood Cell Morphology ANISO 1+ Sodium Level 135 L 136-145 mmol/L Potassium Level 3.7 3.5-5.1 mmol/L Chloride Level 107 101-111 mmol/L Carbon Dioxide Level 19 L 21-32 mmol/L Blood Urea Nitrogen 30 H 7-18 mg/dL Creatinine 2.0 H 0.5-1.0 mg/dL Glomerular Filtration Rate Calc 26 >90 mL/min Random Glucose 137 H 70-105 mg/dL Total Calcium 7.4 L 8.5-10.1 mg/dL Total Bilirubin 0.3 0.2-1.0 mg/dL Aspartate Amino Transf (AST/SGOT) 52 H 10-37 U/L Alanine Aminotransferase (ALT/SGPT) 30 12-78 U/L Alkaline Phosphatase 181 H 50-136 U/L Total Protein 6.0 6.0-8.3 g/dL Albumin 1.7 L 3.5-5.0 g/dL Phosphorus Level 3.7 2.5-4.9 mg/dL Magnesium Level 1.70 L 1.80-2.40 mg/dL ASSESSMENT: Urinary tract infection with Proteus mirabilis and Klebsiella pneumoniae. Acute renal failure. Leukocytosis. Morbid obesity Diabetes mellitus Dehydration Iron-deficiency Anemia. Debility. PLAN: Continue meropenem. Continue diabetic medication. Continue pain management. Will monitor electrolytes Continue physical therapy. Patient has been approved to [facility]. Patient can continue ceftriaxone for 10 more days. Prescription was written. This case was reviewed and discussed with my supervising physician and the above assessment and plan was formulated and agreed upon. ATTESTATION BY PHYSICIAN I have seen and examined the patient. I reviewed the documentation, medical decision making, and treatment plan as noted by the mid-level provider above. I agree with the findings and plan of care. DEBBIE THOMSON MD, MIRTA L [facility] Mar 04, 2025 16:48
--- NOTE | 2025-03-04 23:28 | PN ---
SUBJECTIVE: The patient has multiple problems including renal failure and anemia. The patient has underlying electrolyte problem. No other localizing finding. The patient is weak. This patient has obesity, weakness. The patient has been treated for UTI for complicated UTI with sepsis. Other systemic review is unchanged. The patient is weak. The patient has been on IV antibiotic and being considered for [facility]. REVIEW OF SYSTEMS: CONSTITUTIONAL: With no fever, chills or rigors. HEENT: With no headache, oral ulcers, sore throat or difficulty swallowing. RESPIRATORY: With no cough, expectoration or hemoptysis. CARDIOVASCULAR: No orthopnea or PND. GASTROINTESTINAL: Negative for nausea, vomiting or diarrhea reported. GENITOURINARY: No dysuria or hematuria. DERMATOLOGICAL: No rashes, pruritus. NEUROLOGICAL: No seizure or syncope. PHYSICAL EXAMINATION: GENERAL: Pale, obese, lying in bed. VITAL SIGNS: Blood pressure 150/70, respiratory rate is 18, afebrile. HEENT: Head is atraumatic. Pupils are round and reactive. Sclerae are anicteric. Conjunctivae not pale. Oral mucosa is not dry. NECK: Supple. No masses or bruits. Thyroid is palpable. Neck has no bruits. BACK: No tenderness or back deformities. NEUROLOGIC: Fully awake, alert, nonfocal. No cranial nerve palsies. LABORATORY DATA: We have reviewed the labs. BUN of 30, creatinine 2. Low sodium. Imaging studies are reviewed. Low hemoglobin of 8. Old records have been reviewed. PROBLEMS: Renal failure, anemia and the patient has creatinine 2, relatively low iron saturation, urinary tract infection, sepsis, leukocytosis, obesity, diabetes, dehydration and debility. PLAN: * The patient is on meropenem, is to continue as first resistant organism. * IV iron could be given now once the sepsis features have improved. * As needed Epogen. * Dilaudid can be used for pain 0.5. Intake, output, weight to be monitored. Nonsteroidal drugs to be avoided. Doses of medicine to be adjusted. The patient will have a followup on electrolytes, renal function, anemia and overall status. Condition remained guarded. Total time spent today was 35-40 minutes. I have discussed with the primary team about the care plan. Thank you for this patient. TID: [id number] RECEIPT: [id number]
== END 2025-03-04 18:00 | DRG 698 ==
LOC: EDH 11:32 → EDHIP 15:15 → 3CH 23:45
PROVIDERS: ADMIT Internal Medicine Sleep Medicine; ATTEND Internal Medicine Sleep Medicine
DX: T83.518A Infection and inflammatory reaction due to other urinary catheter, initial encounter (principal); A41.50 Gram-negative sepsis, unspecified; E87.1 Hypo-osmolality and hyponatremia; N17.9 Acute kidney failure, unspecified; Z68.41 Body mass index [BMI] 40.0-44.9, adult; N12 Tubulo-interstitial nephritis, not specified as acute or chronic; E11.22 Type 2 diabetes mellitus with diabetic chronic kidney disease; E11.65 Type 2 diabetes mellitus with hyperglycemia; E86.0 Dehydration; E86.1 Hypovolemia; I12.9 Hypertensive chronic kidney disease with stage 1 through stage 4 chronic kidney disease, or unspecified chronic kidney disease; Z20.822 Contact with and (suspected) exposure to COVID-19; E66.01 Morbid (severe) obesity due to excess calories; B96.1 Klebsiella pneumoniae [K. pneumoniae] as the cause of diseases classified elsewhere; B96.4 Proteus (mirabilis) (morganii) as the cause of diseases classified elsewhere; D50.9 Iron deficiency anemia, unspecified; E78.00 Pure hypercholesterolemia, unspecified; E87.6 Hypokalemia; E83.42 Hypomagnesemia; N18.32 Chronic kidney disease, stage 3b; Z82.49 Family history of ischemic heart disease and other diseases of the circulatory system; Z85.51 Personal history of malignant neoplasm of bladder; Z88.0 Allergy status to penicillin; Z90.49 Acquired absence of other specified parts of digestive tract; Z90.5 Acquired absence of kidney; Z85.038 Personal history of other malignant neoplasm of large intestine; Z83.3 Family history of diabetes mellitus; Z85.05 Personal history of malignant neoplasm of liver; Z85.118 Personal history of other malignant neoplasm of bronchus and lung; Z85.528 Personal history of other malignant neoplasm of kidney; Y84.6 Urinary catheterization as the cause of abnormal reaction of the patient, or of later complication, without mention of misadventure at the time of the procedure
CPT/HCPCS: 36415; 71045; 72131; 74176; 76376; 80048; 80053; 80076; 81001; 82550; 82728; 82948; 83036; 83540; 83550; 83605; 83735; 83880; 84100; 84145; 84443; 84484; 85025; 86000; 86140; 87040; 87086; 87186; 87635; 87804; 93005; 93306; 93356; G0378; J0696; J1756; J1815; J2185; J2405; J3411; J3475; J7050; A4600